=== PATIENT | female | born 1980 | race Caucasian/White ===

== ENCOUNTER 2016-07-07 10:32 | Emergency (ER) | payer MEDICAID ==
[~2016-07-07] VITALS: Ht 162.6 cm; Wt 75.0 kg
[~2016-07-07 10:32] MED LIST: BEN25 PO; CEPH-443 PO; HC1C30 TOP; NAPR-260 PO; PRED20TA PO; TRAM50TA2 PO
[2016-07-07 10:41] VITALS: Ht 162.6 cm; Wt 75.0 kg
[2016-07-07] MEDS ORDERED: FAMOTIDINE 20 MG TAB PO ONE (12:30)
[2016-07-07] MEDS ORDERED: METHYLPREDNISOLONE 125 MG INJ IM ONE (12:30)
[2016-07-07] MEDS ORDERED: DIPHENHYDRAMINE 25 MG CAP PO ONE (12:30)
[2016-07-07] MEDS ORDERED: MED4DP PO (12:40)
[2016-07-07] MEDS ORDERED: KENC1 TOP (12:41)
[2016-07-07] MEDS ORDERED: BEN25 PO (12:42)
--- NOTE | 2016-07-07 12:55 | ERD ---
ER Documentation Chief Complaint Date/Time DATE: 07/07/16 TIME: 12:50 Chief Complaint GENERALIZED BODY ITCHING,RASH.HX OF ECZEMA HPI This is a 36-year-old female presents to the ER with a rash that started yesterday. Rash is located on her neck and her arms. Patient has had this in the past and has been diagnosed with eczema. Patient states that she was cooking something in that this evening near her skin turned red and is very itchy. Patient tried taking Benadryl which helps minimally. Patient was here last month and was given a shot of Solu-Medrol which took her symptoms away. Patient denies any difficulty in breathing, any lip swelling, any tongue swelling, eye swelling, chest pain, shortness of breath. She has not taken any new medications or come in contact with any new foods. ROS 12 point review of systems was done, all negative except per HPI. Medications Home Meds Active Scripts Diphenhydramine Hcl* (Benadryl*) 25 Mg Cap, 25 MG PO Q6, #30 CAP Prov:ROSEY FISCHER 07/07/16 Triamcinolone Acetonide (Triamcinolone Acetonide) 0.1% - 15 Gm Cream.gm., 1 APPLIC TOP BID, #1 TUB Prov:ROSEY FISCHER 07/07/16 Methylprednisolone* (Medrol* DOSE PACK) 4 Mg/Dose-Pack Tab.ds.pk, 4 MG PO . DIRECTED for 6 Days, PACKET Prov:ROSEY FISCHER 07/07/16 Cephalexin* (Keflex*) 500 Mg Capsule, 500 MG PO QID for 10 Days, CAP Prov:ERIN PRICE PA-C 05/16/16 Diphenhydramine Hcl* (Benadryl*) 25 Mg Cap, 25 MG PO Q6, #30 CAP Prov:ERIN PRICE PA-C 05/16/16 Prednisone* (Prednisone*) 20 Mg Tab, 40 MG PO DAILY for 5 Days, TAB Prov:ERIN PRICE PA-C 05/16/16 Naproxen* (Naprosyn*) 500 Mg Tablet, 500 MG PO BID Y for PAIN AND/OR INFLAMMATION, #30 TAB Prov:DIPTI PINEDA PA-C 03/10/16 Tramadol HCl (Tramadol HCl) 50 Mg Tablet, 50 MG PO Q4 Y for PAIN, #20 TAB Prov:DIPTI PINEDAAnuj LUIS 03/10/16 Hydrocortisone* Topical (Hydrocortisone* Topical) 1%-28.35 Gm Cream..g., 1 APPLIC TOP Q6 Y for ITCHING, #1 TUB Prov:ROSEY FISCHER C 07/10/15 Diphenhydramine Hcl* (Benadryl*) 25 Mg Cap, 25 MG PO Q6, #30 CAP Prov:ROSEY FISCHER C 07/10/15 Allergies Allergies: Coded Allergies: Penicillins (Verified Allergy, Unknown, 04/26/14) PMhx/Soc History of Surgery: No Anesthesia Reaction: No Hx Neurological Disorder: No Hx Respiratory Disorders: No Hx Cardiac Disorders: No Hx Psychiatric Problems: No Hx Miscellaneous Medical Probl: No Hx Alcohol Use: No Hx Substance Use: No Hx Tobacco Use: No Physical Exam Vitals Vital Signs Date Time Temp Pulse Resp B/P Pulse Ox O2 Delivery O2 Flow Rate FiO2 07/07/16 10:41 98.6 75 18 124/73 98 Physical Exam GENERAL: The patient is well developed and appropriate for usual state of health , in no apparent distress. HEENT: Atraumatic. no lip swelling, tongue swelling, eye swelling. CHEST: Clear to auscultation bilaterally. There are no rales, wheezes or rhonchi. HEART: Regular rate and rhythm. No murmurs, clicks, rubs or gallops. EXTREMITIES:Full range of motion. Grossly neurovascularly intact. NEURO: Alert and oriented. SKIN: There is erythematous dry skin on the patient's anterior neck and chest and along bilateral arms. Some areas of excoriation on the arms. Results 24 hrs Current Medications Medications (Trade) Dose Ordered Sig/Leydi Route PRN Reason Start Time Stop Time Status Last Admin Dose Admin Methylprednisolone Sodium Succinate (Solu-Medrol) 125 mg ONCE ONCE IM 07/07/16 12:30 07/07/16 12:31 DC 07/07/16 12:27 Diphenhydramine HCl (Benadryl) 25 mg ONCE ONCE PO 07/07/16 12:30 07/07/16 12:31 DC 07/07/16 12:27 Famotidine (Pepcid) 20 mg ONCE ONCE PO 07/07/16 12:30 07/07/16 12:31 DC 07/07/16 12:27 Procedures/MDM Differential Diagnosis: dermatitis, allergic urticaria, viral exanthem, insect bite, fungal infection ,viral exanthem, hand foot mouth disease, , impetigo, cellulitis, abscess, martha krissy syndrome, meningocemia, necrotizing fasciitis, myositis. This is a 36-year-old female presents to the ER with a rash located on her neck and her arms. This appears to be eczema. Patient was given a shot of Solu-Medrol here in the ER without any complications. Patient does not appear to be having a severe allergic reaction. She does not have any angioedema. She is afebrile and well-appearing. Patient needs to follow-up with her primary care doctor within 1-2 days or return to ER sooner symptoms worsen. My medical decision making was shared with the patient she understands and agrees. Departure Diagnosis: Primary Impression: Atopic dermatitis Condition: Stable Patient Instructions: Atopic Dermatitis (Eczema) Additional Instructions: Llame al doctor MAANA y evette arnold RAMILA PARA DENTRO DE 1-2 NASCIMENTO.Dgale a la secretaria que nosotros le instruimos hacer esta ramila.Avise o llame si lepe condicin se empeora antes de la ramila. Regresa aqui si peor o no mejor. COMPRA EN LA FARMACIA AMLACTIN [address] LA QUE TE FUNCIONE MEJOR TODOS LOS NASCIMENTO DESPUES DEL KENJI, NO TE BANES CON AGUA MUY CALIENTE VE CON TU DOCTOR DE CABEZERA PIDE EL EXAMEN DE TIO- IMMUNOCAP TO FOOD AND ENVIRONMENT. ES UN EXAMEN PARA JASON SI ES ARNOLD ALERGIA. ROSEY FISCHER Jul 07, 2016 12:55
[2016-07-07 13:00] VITALS: BP 120/70; PULSE 85; RESP 18; TEMP 98.2
== END 2016-07-07 13:06 | disposition home or self-care (01) ==
LOC: FTE 10:32
DX: L20.9 Atopic dermatitis, unspecified (principal)
CPT/HCPCS: J2930; Z7610; 96372

== ENCOUNTER 2017-09-15 11:45 | Emergency (ER) | END 2017-09-15 14:52 | disposition home or self-care (01) ==

== ENCOUNTER 2018-01-06 14:26 | Emergency (ER) | END 2018-01-06 15:55 | disposition home or self-care (01) ==

== ENCOUNTER 2018-03-13 18:47 | Emergency (ER) | END 2018-03-13 21:18 | disposition home or self-care (01) ==

== ENCOUNTER 2018-05-26 16:48 | Inpatient (IN) | payer MEDICAID ==
[~2018-05-26] VITALS: Ht 160 cm; Wt 80.3 kg
[~2018-05-26 16:48] MED LIST changes: +ACET500C5 PO; +EPIN0.3P4 INJ; +FAMO-96 PO; +LORA10CA9 PO; +MED4DP PO; -NAPR-260 PO; +NAPR-985 PO; +ONDA4TAB14 PO; +TRIA15CR55 TOP; +TRIA15OI9 TOP
[2018-05-26] MEDS ORDERED: LIDOCAINE/MYLANTA 40 ML BTL PO STA (20:37)
[2018-05-26] MEDS ORDERED: KETOROLAC 15 MG INJ IV STA (20:37)
[2018-05-26] MEDS ORDERED: BELLADONNA/PHENOBARBITAL TAB PO STA (20:37)
[2018-05-26] MEDS ORDERED: SOD CHLORIDE 0.9% 1,000 ML IV STA (20:37)
[2018-05-26] MEDS ORDERED: FAMOTIDINE 20 MG TAB PO STA (20:37)
[2018-05-26] MEDS ORDERED: ONDANSETRON 4 MG INJ IV STA (20:37)
--- NOTE | 2018-05-26 20:42 | ERD ---
ER Documentation Chief Complaint Chief Complaint chest pressure x 2 hours HPI 38-year-old woman presents with right upper quadrant abdominal pain. She was triage is having chest pain although she points to the right upper quadrant and epigastrium when describing the pain. She has had the pain all day long and 2 episodes of clear nonbloody nonbilious emesis. She denies fevers or chills, no diarrhea, no headache or blurry vision, no dysuria ROS All systems reviewed and are negative except as per history of present illness. Medications Home Meds Active Scripts Famotidine* (Pepcid*) 20 Mg Tablet, 20 MG PO DAILY for 30 Days, TAB Prov:SHAHAB ONEIL 03/13/18 Diphenhydramine Hcl* (Benadryl*) 25 Mg Cap, 25 MG PO Q6 PRN for ITCHING/RASH, #30 TAB Prov:SHAHAB ONEIL 03/13/18 Loratadine (Loratadine) 10 Mg Capsule, 10 MG PO DAILY, #30 CAP Prov:TERRIDEWAYNESHAHAB 03/13/18 Discontinued Scripts Prednisone* (Prednisone*) 20 Mg Tab, 60 MG PO DAILY for 5 Days, TAB Prov:SHAHAB ONEIL 03/13/18 Epinephrine (Epipen 2-Luis) 0.3 Mg/0.3 Ml Pen.injctr, 1 EA INJ ONCE PRN for ALLERGIC REACTION, #1 EA Prov:SHAHAB ONEIL 03/13/18 Triamcinolone Acetonide (Triamcinolone Acetonide) 0.5% - 15 Gm Oint..gm., 1 APPLIC TOP BID for 30 Days, #4 TUB Prov:DELANO SUÁREZ MD 01/06/18 Prednisone* (Prednisone*) 20 Mg Tab, 40 MG PO DAILY for 4 Days, TAB Prov:DELANO SUÁREZ MD 01/06/18 Acetaminophen* (Tylophen*) 500 Mg Capsule, 2 CAP PO Q8H PRN for PAIN AND OR ELEVATED TEMP, #20 CAP Prov:JOHNNY CANCHOLA PA-C 09/15/17 Ondansetron (Ondansetron Odt) 4 Mg Tab.rapdis, 4 MG PO Q6H PRN for NAUSEA AND/OR VOMITING, #10 TAB Prov:JOHNNY CANCHOLA PA-C 09/15/17 Diphenhydramine Hcl* (Benadryl*) 25 Mg Cap, 25 MG PO Q6, #30 CAP Prov:AALIYAHROSEY Gastelum 07/07/16 Triamcinolone Acetonide (Triamcinolone Acetonide) 0.1% - 15 Gm Cream.gm., 1 APPLIC TOP BID, #1 TUB Prov:AALIYAHROSEY Gastelum 07/07/16 Methylprednisolone* (Medrol* DOSE PACK) 4 Mg/Dose-Pack Tab.ds.pk, 4 MG PO . DIRECTED for 6 Days, PACKET Prov:ROSEY FISCHER 07/07/16 Cephalexin* (Keflex*) 500 Mg Capsule, 500 MG PO QID for 10 Days, CAP Prov:ERIN PRICE PA-C 05/16/16 Diphenhydramine Hcl* (Benadryl*) 25 Mg Cap, 25 MG PO Q6, #30 CAP Prov:ERIN PRICE PA-C 05/16/16 Prednisone* (Prednisone*) 20 Mg Tab, 40 MG PO DAILY for 5 Days, TAB Prov:ERIN PRICE PA-C 05/16/16 Naproxen* (Naprosyn*) 500 Mg Tablet, 500 MG PO BID PRN for PAIN AND/OR INFLAMMATION, #30 TAB Prov:DIPTI PINEDA PA-C 03/10/16 Tramadol HCl (Tramadol HCl) 50 Mg Tablet, 50 MG PO Q4 PRN for PAIN, #20 TAB Prov:DIPTI PINEDA PA-C 03/10/16 Hydrocortisone* Topical (Hydrocortisone* Topical) 1%-28.35 Gm Cream..g., 1 APPLIC TOP Q6 PRN for ITCHING, #1 TUB Prov:ROSEY FISCHER 07/10/15 Diphenhydramine Hcl* (Benadryl*) 25 Mg Cap, 25 MG PO Q6, #30 CAP Prov:ROSEY FISCHER 07/10/15 Allergies Allergies: Coded Allergies: Penicillins (Verified Allergy, Unknown, 05/26/18) PMhx/Soc Eczema Medical and Surgical Hx: pt denies Medical Hx, pt denies Surgical Hx History of Surgery: No Anesthesia Reaction: No Hx Neurological Disorder: No Hx Respiratory Disorders: No Hx Cardiac Disorders: No Hx Psychiatric Problems: No Hx Miscellaneous Medical Probl: Yes (Eczema) Hx Alcohol Use: No Hx Substance Use: No Hx Tobacco Use: No Smoking Status: Never smoker FmHx Family History: diabetes Physical Exam Vitals Vital Signs Date Temp Pulse Resp B/P (MAP) Pulse Ox O2 O2 Flow FiO2 Time Delivery Rate 05/26/18 73 16 122/57 99 Room Air 22:00 (78) 05/26/18 71 19 126/73 100 Room Air 20:00 (90) 05/26/18 97.0 66 18 154/84 98 16:50 (107) Physical Exam GENERAL: Well-developed, well-nourished, mild discomfort, afebrile HEENT: Moist mucous membranes, pink conjunctiva, no cervical spine tenderness or step-off deformities, no goiter, no jaundice or icterus, extraocular movements intact without pain. No submandibular induration, and no pharyngeal erythema NEURO: Alert and oriented 3, cranial nerves II through XII intact bilaterally, pupils equal round reactive to light, no focal deficits or facial asymmetry, sensation intact distally Strength 5/5 in upper and lower extremities bilaterally CARDIAC: Regular rate and rhythm, no murmurs rubs or gallops LUNGS: Clear bilaterally no wheezing crackles or stridor ABDOMEN: Mild right upper quadrant tenderness to touch, no McBurney's point tenderness, no psoas sign, no rigidity or rebound SKIN: Warm and dry to touch, chronic appearing superficial eczematous changes and excoriations to the upper extremities, flaky skin, no pustules or ulcers EXTREMITIES: No clubbing cyanosis or edema, calves are bilaterally symmetrical, no Homans sign, no popliteal cord sign. Distal pulses equal and bilateral PSYCH: Normal affect without agitation or irritability Result Diagram: 05/26/18205805/26/182058 Results 24 hrs Laboratory Tests Test 05/26/18 20:52 05/26/18 20:59 POC Beta HCG, Qualitative NEGATIVE White Blood Count 16.7 10^3/ul Red Blood Count 4.64 10^6/ul Hemoglobin 12.7 g/dl Hematocrit 38.8 % Mean Corpuscular Volume 83.6 fl Mean Corpuscular Hemoglobin 27.4 pg Mean Corpuscular Hemoglobin Concent 32.7 g/dl Red Cell Distribution Width 13.0 % Platelet Count 302 10^3/UL Mean Platelet Volume 10.3 fl Immature Granulocytes % 0.400 % Neutrophils % 88.2 % Lymphocytes % 6.5 % Monocytes % 3.2 % Eosinophils % 1.3 % Basophils % 0.4 % Nucleated Red Blood Cells % 0.0 /100WBC Immature Granulocytes # 0.060 10^3/ul Neutrophils # 14.7 10^3/ul Lymphocytes # 1.1 10^3/ul Monocytes # 0.5 10^3/ul Eosinophils # 0.2 10^3/ul Basophils # 0.1 10^3/ul Nucleated Red Blood Cells # 0.0 10^3/ul Prothrombin Time 12.7 Sec Prothrombin Time Ratio 1.0 INR International Normalized Ratio 0.94 Activated Partial Thromboplast Time 28.8 Sec Sodium Level 139 mmol/L Potassium Level 3.9 mmol/L Chloride Level 99 mmol/L Carbon Dioxide Level 27 mmol/L Anion Gap 13 Blood Urea Nitrogen 13 mg/dl Creatinine 0.55 mg/dl Est Glomerular Filtrat Rate mL/min > 60 mL/min Glucose Level 134 mg/dl Calcium Level 9.6 mg/dl Total Bilirubin 0.3 mg/dl Direct Bilirubin 0.00 mg/dl Indirect Bilirubin 0.3 mg/dl Aspartate Amino Transf (AST/SGOT) 32 IU/L Alanine Aminotransferase (ALT/SGPT) 48 IU/L Alkaline Phosphatase 70 IU/L Troponin I < 0.012 ng/ml Total Protein 8.0 g/dl Albumin 4.8 g/dl Globulin 3.20 g/dl Albumin/Globulin Ratio 1.50 Lipase 63 U/L Current Medications Medications Dose Sig/Leydi Start Time Status Last (Trade) Ordered Route PRN Stop Time Admin Dose Reason Admin Sodium 1,000 ml @ Q1H STAT 05/26/18 DC 05/26/18 Chloride 1,000 mls/hr IV 20:37 20:53 05/26/18 21:36 Ondansetron 4 mg ONCE STAT 05/26/18 DC 05/26/18 HCl (Zofran IV 20:37 20:52 Inj) 05/26/18 20:39 Famotidine 20 mg ONCE STAT 05/26/18 DC 05/26/18 (Pepcid) PO 20:37 20:53 05/26/18 20:39 40 ml ONCE STAT 05/26/18 DC 05/26/18 Miscellaneous PO 20:37 20:54 Medication 05/26/18 (Gi Cocktail 20:39 (2)) Belladonna/ 2 tab ONCE STAT 05/26/18 DC 05/26/18 Phenobarbital PO 20:37 20:53 () 05/26/18 20:39 Ketorolac 15 mg ONCE STAT 05/26/18 DC 05/26/18 Tromethamine IV 20:37 20:53 (Toradol) 05/26/18 20:39 Piperacillin 100 ml @ ONCE ONCE 05/26/18 DC 05/26/18 Sod/ 200 mls/hr IVPB 22:00 22:20 Tazobactam 05/26/18 Sod 22:29 Procedures/MDM IV line was established patient was placed on monitoring analyst rhythm strip revealed a sinus rhythm at about 60 bpm with upright P and T waves. Patient was afebrile EKG performed, read by me revealed a normal sinus rhythm at 63 bpm, normal axis, narrow QRS complex, no concerning ST elevations or depressions noted I administered 1 L normal saline IV, Toradol 15 mg IV, Zofran 4 mg IV, GI cocktail 30 cc p.o., famotidine 20 mg p.o. Chest X-ray 1V Interpreted by me: Soft Tissue: No acute abnormalities Bones: No acute abnormalities Mediastinum/Cardiac Silhouette/Lungs: No acute abnormalities Ultrasound of the gallbladder was performed revealed gallbladder sludge and multiple gallstones. Please refer to radiologist dictation for full report CBC reveals a leukocytosis of 17, electrolytes are normal, liver function tests normal, troponin negative, test negative, urinalysis has been ordered results are pending I will follow-up. Patient has continued abdominal pain and a leukocytosis given her ultrasound findings I will admit her to [facility] for reevaluation. I spoke to the surgeon on-call. Patient's leukocytosis may be due to vomiting and her pain may be secondary to gastritis but she is at risk for acute cholecystitis and will be admitted for further medical management Departure Diagnosis: Primary Impression: Intractable abdominal pain Additional Impressions: Cholelithiasis Cholelithiasis location: gallbladder Cholecystitis presence: with cholecystitis Cholecystitis acuity: acute Biliary obstruction: without biliary obstruction Qualified Codes: K80.00 - Calculus of gallbladder with acute cholecystitis without obstruction Leukocytosis Leukocytosis type: lymphocytosis Qualified Codes: D72.820 - Lymphocytosis (symptomatic) Condition: Fair JATINDER SHARMA MD May 26, 2018 20:42
[2018-05-26] MEDS ORDERED: PIPER-TAZO 3.375 GM IV (PMX) 100 ML IVPB ONE (22:00)
[2018-05-26] MEDS ORDERED: HYDROmorphONE 0.5 MG/0.5 ML SYG IV STA (23:54)
[2018-05-27 01:14] VITALS: BP 108/60; PULSE 61; RESP 16
--- NOTE | 2018-05-27 01:15 | NUR ---
Patient arrived in 4W from the ER with diagnosis of intractable abdominal pain/cholelithiasis;oriented to room/unit, call burnette placed within reach and side rails raised for safety. Dr. Wallis notified thru Flexion message awaiting admission orders. Patient observed to have generalized rash/eczema with some healing tiny wound scabs more prominent on B/L hands. No pressure sores assessed in bony prominences such as sacrococcyx and B/L heels. Skin assessment done with night meteorologist in charge Sadia. Needs assisted, will continue to monitor for the reminder of this shift.
[2018-05-27 01:30] VITALS: Ht 160 cm; Wt 80.3 kg
[2018-05-27] MEDS ORDERED: ONDANSETRON 4 MG INJ IV PRN (02:30)
[2018-05-27] MEDS ORDERED: morphine 2 MG INJ IV PRN (02:30)
[2018-05-27] MEDS ORDERED: NACL 0.9% 3 ML SYG IV SCH (02:30)
[2018-05-27] MEDS: DEXTROSE 5%-0.45% NACL 1,000 ML IV SCH ×4 (02:46→21:50)
--- NOTE | 2018-05-27 02:55 | NUR ---
Patient complained of SOB chest pain described as " like somebody is sitting on top of my chest" pointing to her epigastrium. V/S stable when checked, Dr. Wallis notified with telephone orders made. O2 provided @ 2LPM via nasal cannula with O2 saturation ranging from 95-97% wastewater treatment supervisor also made aware as well. Will carry out interventions and watch patient closely/assist with needs.
[2018-05-27] MEDS: NITROGLYCERIN (SL) 0.4 MG TAB SL PRN ×2 (03:00→03:10)
[2018-05-27] MEDS ORDERED: HYDROmorphONE 1 MG/ML SYG IV ONE (05:30)
--- NOTE | 2018-05-27 06:15 | NUR ---
RN EOSS NOTES: Patient complained of recurring epigastric pain as well as RUQ abdominal pain radiating to back. Was able to sleep only for 1-2 hours post Nitrostat and Morphine IV administration this shift. Admitted intervention offered relief from chest pain but that "now my tummy and back is starting to hurt again." Requested if she can be given the same GI cocktail med given to her in the ER. Message sent to Dr. Wallis and physician with telephone order for Dilaudid 1.5mg IV x 1 dose now. No further orders. Will continue to monitor and assist with needs.
--- NOTE | 2018-05-27 06:56 | HP ---
Date/Time of Note Date/Time of Note DATE: 05/27/18 TIME: 06:53 Assessment/Plan Lines/Catheters IV [facility]ter Type (from [facility]): Saline Lock Urinary Cath still in place: No Assessment/Plan Assessment/Plan 1. Symptomatic cholelithiasis with possible cholecystitis -Keep n.p.o. with IV fluid -IV antibiotic -Pain management -HIDA scan -Awaiting surgical eval 2. Probable chest pain: Possibly related to #1, but need to rule out ACS -Troponin and EKG negative -will trend troponin and obtain a 2D echo 3. Leukocytosis: Reactive versus see #1 HPI/ROS Admit Date/Time Admit Date/Time May 26, 2018 at 22:22 Hx of Present Illness This is a 38-year-old female who presents the ER complaining of right upper quadrant pain and epigastric pain. Pain radiates to her back. Reported nausea and vomiting, mostly nonbloody nonbilious, but one episode with a small amount of blood. Also reported pain, just above the epigastric area, which was pressure-like. In the ER abdominal ultrasound shows multiple calcified gallstones. WBC almost 17,000. Patient afebrile. Liver chemistries and lipase WNL. PMH/Family/Social Past Medical History Coded Allergies: shrimp (Verified Allergy, Intermediate, eczema, 05/27/18) and seafood soap (Verified Allergy, Intermediate, eczema, 05/27/18) toxic cleaning materials Penicillins (Verified Allergy, Unknown, 05/26/18) Social History Smoking Status: Never smoker Exam/Review of Systems Vital Signs Vitals Vital Signs Date Temp Pulse Resp B/P (MAP) Pulse Ox O2 O2 Flow FiO2 Time Delivery Rate 05/27/18 98.1 61 16 108/60 98 01:14 (76) 05/27/18 Room Air 00:29 Intake and Output 05/26/18 05/26/18 05/27/18 1515:00 23:00 07:00 IntakeIntake Total 380 ml BalanceBalance 380 ml Medications Medications Current Medications Dextrose/Sodium Chloride 1,000 ml @ 120 mls/hr Q8H20M IV Last administered on 05/27/18at 02:46; Admin Dose 120 MLS/HR; Start 05/27/18 at 02:12 IV Flush (NS 3 ml) 3 ml PER PROTOCOL IV ; Start 05/27/18 at 02:30 Ondansetron HCl (Zofran Inj) 4 mg Q6H PRN IV NAUSEA AND/OR VOMITING; Start 05/27/18 at 02:30 Morphine Sulfate (morphine) 2 mg Q4H PRN IV SEVERE PAIN LEVEL 7-10 Last administered on 05/27/18at 03:52; Admin Dose 2 MG; Start 05/27/18 at 02:30 Famotidine (Pepcid Iv) 20 mg Q12 IV ; Start 05/27/18 at 09:00 Nitroglycerin (Nitroglycerin (Sl Tab) 0.4 Mg) 1 tab Q5M PRN SL ANGINA Last administered on 05/27/18at 03:10; Admin Dose 1 TAB; Start 05/27/18 at 02:55 Results Result Diagram: 05/27/1830905/27/18 0310 Results 24 hrs Laboratory Tests Test 05/26/18 20:52 05/26/18 20:59 05/27/18 03:10 POC Beta HCG, Qualitative NEGATIVE White Blood Count 16.7 H 13.6 H Red Blood Count 4.64 4.26 Hemoglobin 12.7 11.7 L Hematocrit 38.8 35.8 L Mean Corpuscular Volume 83.6 84.0 Mean Corpuscular Hemoglobin 27.4 L 27.5 L Mean Corpuscular 32.7 32.7 Hemoglobin Concent Red Cell Distribution Width 13.0 12.9 Platelet Count 302 281 Mean Platelet Volume 10.3 10.0 Immature Granulocytes % 0.400 0.300 Neutrophils % 88.2 H 77.0 Lymphocytes % 6.5 L 11.4 L Monocytes % 3.2 7.4 Eosinophils % 1.3 3.5 Basophils % 0.4 0.4 Nucleated Red Blood Cells % 0.0 0.0 Immature Granulocytes # 0.060 H 0.040 H Neutrophils # 14.7 H 10.5 H Lymphocytes # 1.1 1.6 Monocytes # 0.5 1.0 H Eosinophils # 0.2 0.5 Basophils # 0.1 0.1 Nucleated Red Blood Cells # 0.0 0.0 Prothrombin Time 12.7 Prothrombin Time Ratio 1.0 INR International 0.94 Normalized Ratio Activated Partial Thromboplast 28.8 Time Sodium Level 139 141 Potassium Level 3.9 3.7 Chloride Level 99 106 Carbon Dioxide Level 27 24 Anion Gap 13 11 Blood Urea Nitrogen 13 10 Creatinine 0.55 0.55 Est Glomerular Filtrat > 60 > 60 Rate mL/min Glucose Level 134 117 Calcium Level 9.6 8.4 Total Bilirubin 0.3 0.4 Direct Bilirubin 0.00 0.00 Indirect Bilirubin 0.3 0.4 Aspartate Amino 32 80 H Transf (AST/SGOT) Alanine 48 55 Aminotransferase (ALT/SGPT) Alkaline Phosphatase 70 73 Troponin I < 0.012 < 0.012 Total Protein 8.0 7.2 Albumin 4.8 3.8 # Globulin 3.20 3.40 H Albumin/Globulin Ratio 1.50 1.11 Lipase 63 Creatinine Kinase MB (Mass) 0.32 NICK TRONCOSO MD May 27, 2018 06:56
[2018-05-27 07:20] VITALS: BP 120/70; PULSE 69; RESP 18
[2018-05-27] MEDS: LEVOFLOXACIN 500MG/D5W (PMX) 100 ML IVPB SCH (08:30)
[2018-05-27] MEDS: FAMOTIDINE 20 MG INJ IV SCH ×2 (08:31→21:54)
[2018-05-27 14:29] VITALS: BP 102/58; PULSE 81; RESP 20
[2018-05-27] MEDS: ACETAMINOPHEN 325 MG TAB PO PRN (15:52)
--- NOTE | 2018-05-27 15:59 | RADRPT ---
Echocardiogram Report Patient Name: CHEYENNE CEBALLOS Gender: Female Date: 1980 Study Date: 27-May-2018 Child Care Supervisor: Brian Melgar [facility] Location: [id number] Ref. Physician: NICK TRONCOSO Quality: Adequate Procedures: Transthoracic echocardiogram with complete 2D, M-Mode, and doppler examination. Indications: Chest Pain. 2D/M Mode Doppler Measurement Value Normal Ranges Measurement Value Normal Ranges LVIDd 2D 4.3 3.5 - 5.6 cm AV Peak Sujit 1.7 m/sec LVIDs 2D 2.8 2.1 - 4.1 cm AV Peak PG 11.0 mmHg LVPWd 2D 1.0 0.6 - 1.1 cm LVOT Peak Sujit 1.1 m/sec IVSd 2D 1.3 0.6 - 1.1 cm LVOT Peak PG 5.0 mmHg AoR Diam 2D 2.7 2.0 - 3.7 cm MV E Peak Sujit 1.3 m/sec LA/Ao 2D 1 0 - 1 MV A Peak Sujit 0.8 m/sec LA Dimen 2D 3.4 2.3 - 4.0 cm MV E/A 1.5 MV Decel Time 208 msec Lat E` Sujit 0.1 m/sec Lateral E/E` 9.2 MV E/A 1.5 TR Peak Sujit 2.6 m/sec TR Peak PG 27.0 mmHg RVSP 30.0 mmHg RA Pressure 3.0 Findings Left Ventricle: Lower limits of normal systolic function. Normal left ventricular cavity size. Left ventricular wall thickness upper limits of normal. Ejection fraction is visually estimated at 50 - 55 %. Tissue Doppler/Mitral Doppler indices are within normal limits. These segments of the LV are hypokinetic inferolateral mid segment, inferolateral base, anterolateral mid segment and anterolateral base. Right Ventricle: Normal right ventricular size. Normal right ventricular systolic function. Left Atrium: The left atrium is normal in size. Right Atrium: The right atrium is normal in size. Mitral Valve: Normal appearance and function of the mitral valve with trace physiologic regurgitation. Aortic Valve: Normal appearance of the aortic valve. No significant aortic stenosis or insufficiency. Tricuspid Valve: Normal appearance of the tricuspid valve. Estimated peak PA systolic pressure 30 mmHg. There is trace tricuspid regurgitation. Pulmonic Valve: Normal pulmonic valve appearance. Pericardium: Normal pericardium with no significant pericardial effusion. Aorta: Normal aortic root. IVC: Normal size and normal respiratory collapse consistent with normal right atrial pressure. Conclusions The left ventricle is normal in size with lower limits of normal overall systolic function. Estimated left ventricular ejection fraction of 50-55%. The basal to mid inferolateral and lateral urban are hypokinetic. Electronically Signed By: Rafat Weiss 27-May-2018 15:58:53 -0800 Patient Name: CHEYENNE CEBALLOS Study Date: 27-May-2018 [id number]
--- NOTE | 2018-05-27 16:08 | CONS ---
Date/Time of Note Date/Time of Note DATE: 05/27/18 TIME: 15:56 Assessment/Plan Assessment/Plan Chief Complaint/Hosp Course 1. Abdominal pain with symptomatic cholelithiasis, and possible acute cholecystitis; HIDA noted_pending delay images -N.p.o. -Pain management -Possible OR tomorrow> pending HIDA findings and rule out ACS -OR 2. Leukocytosis: Improving -As above 3. Chest pressure: Rule out ACS -Cardiology consult 4. Obesity: BMI: 31 -diet and exercise optimization -encourage weight loss 5. Eczema: -Medical management Thank you. Patient seen and examined in collaboration with Dr. Onesimo Fleming. Consultation Date/Type/Reason Admit Date/Time May 26, 2018 at 22:22 Date of Consultation: May 27, 2018 Type of Consult Surgical Reason for Consultation Abdominal pain, concern for cholecystitis Requesting Provider: NICK TRONCOSO MD Hx of Present Illness Salome Acosta is a 38-year-old woman with complaints of right upper quadrant pain with radiation to the right upper back as well as midepigastric pain. Associated symptoms include nausea with vomiting, no bloody emesis, As well as some chest pressure. She denies fevers, chills, congested cough, shortness of breath, change in bowel or bladder habits, dysuria, seizure, change in skin or scleral changes. On further workup, her labs were noted to be significant for elevated WBC at 16.7. Gallbladder ultrasound shows calcified gallstones within the gallbladder with a small amount of sludge. HIDA scan was performed which showed nonvisualization of the gallbladder. General surgery was asked to evaluate. 12 point review of systems was performed and is negative except for stated in HPI. Past Medical History Eczema Medications Current Medications Dextrose/Sodium Chloride 1,000 ml @ 120 mls/hr Q8H20M IV Last administered on 05/27/18at 02:46; Admin Dose 120 MLS/HR; Start 05/27/18 at 02:12 IV Flush (NS 3 ml) 3 ml PER PROTOCOL IV ; Start 05/27/18 at 02:30 Ondansetron HCl (Zofran Inj) 4 mg Q6H PRN IV NAUSEA AND/OR VOMITING; Start 1 07/28/17 at 02:30 Morphine Sulfate (morphine) 2 mg Q4H PRN IV SEVERE PAIN LEVEL 7-10 Last administered on 05/27/18at 03:52; Admin Dose 2 MG; Start 05/27/18 at 02:30 Famotidine (Pepcid Iv) 20 mg Q12 IV Last administered on 05/27/18at 08:31; Admin Dose 20 MG; Start 05/27/18 at 09:00 Nitroglycerin (Nitroglycerin (Sl Tab) 0.4 Mg) 1 tab Q5M PRN SL ANGINA Last administered on 05/27/18at 03:10; Admin Dose 1 TAB; Start 05/27/18 at 02:55 Levofloxacin/ Dextrose 100 ml @ 100 mls/hr DAILY IVPB Last administered on 05/27/18 08:30; Admin Dose 100 MLS/HR; Start 05/27/18 at 09:00 Acetaminophen (Tylenol Tab) 650 mg Q6H PRN PO MILD PAIN(1-3)OR ELEVATED TEMP Last administered on 05/27/18at 15:52; Admin Dose 650 MG; Start 05/27/18 at 16:00 Allergies: Coded Allergies: shrimp (Verified Allergy, Intermediate, eczema, 05/27/18) and seafood soap (Verified Allergy, Intermediate, eczema, 05/27/18) toxic cleaning materials Penicillins (Verified Allergy, Unknown, 05/26/18) Past Surgical History Past Surgical Hx: no surgical history Family History Significant Family History: no pertinent family hx Social History Smoking Status: Never smoker Exam/Review of Systems Vital Signs Vitals Vital Signs Date Temp Pulse Resp B/P (MAP) Pulse Ox O2 O2 Flow FiO2 Time Delivery Rate 05/27/18 100.5 81 20 102/58 98 Room Air 14:29 (73) Intake and Output 05/26/18 05/26/18 05/27/18 1414:59 22:59 06:59 IntakeIntake Total 380 ml BalanceBalance 380 ml Exam Constitutional: alert, oriented, well developed Psych: nl mood/affect, anxiety Head: normocephalic, atraumatic Eyes: nl conjunctiva, EOMI, nl sclera ENMT: nl external ears & nose, nl lips & teeth, mucosa pink and moist Neck: supple, non-tender; No jvd Respiratory: normal air movement; No congested cough, No labored breathing Cardiovascular: regular rate and rhythm, nl pulses Gastrointestinal: soft, tender (Right upper quadrant; Kohler's positive by palpation); No distended Genitourinary - Female: nl external genitalia Musculoskeletal: nl extremities to inspection, nl gait and stance Extremities: normal pulses Neurological: nl mental status, nl speech, nl strength Skin: No rash or lesions ART CAMARGO NP May 27, 2018 16:07
[2018-05-27] MEDS: HYDROmorphONE 1 MG/ML SYG IV PRN (16:53)
--- NOTE | 2018-05-27 17:21 | PN ---
Date/Time of Note Date/Time of Note DATE: 05/27/18 TIME: 17:16 Assessment/Plan VTE Prophylaxis Risk score (from Nsg)>0 risk: 1 SCD applied (from Nsg): Yes SCD contraindicated: low risk/ambulating Pharmacological prophylaxis: LMWH Lines/Catheters IV Catheter Type (from Nrsg): Peripheral IV Urinary Cath still in place: No Assessment/Plan Hospital Course Assessment and plan 1. Abd pain/nausea vomiting/fever/abnormal ultrasound likely acute cholecystitis, stable, appreciate surgical eval. Npo./IVf/antibiotics. If stress test is unremarkable, may proceed forward to surgery w low lauren op risk. 2. Nonexertional chest pain, abn echo, stable rule out ACS. Appreciate cardio consult, Stress test tomorrow 3. Chronic eczema S: Ac onset abd pain w nausea vomiting fever. No recent travel ill contacts or ill foods. No tobacco use. Consider restaurant. Occasional beverage. Denies any chest wall injury. No recent travel. No previous similar pain in the past. Denies any inciting foods. No family history of coronary disease. Positive family history of cancer. Unable to tolerate diet this evening. Objective: Vital signs stable PE No pallor icterus adenopathy JVD Reg no murmur gallop Clear Bs diminished, mild right upper quadrant tenderness no r/r/g No edema or Homans. Positive eczema Exam/Review of Systems Vital Signs Vitals Vital Signs Date Temp Pulse Resp B/P (MAP) Pulse Ox O2 O2 Flow FiO2 Time Delivery Rate 05/27/18 100.5 81 20 102/58 98 Room Air 14:29 (73) Intake and Output 05/26/18 05/26/18 05/27/18 1515:00 23:00 07:00 IntakeIntake Total 380 ml BalanceBalance 380 ml BARRIE GRIFFIN MD May 27, 2018 17:21
--- NOTE | 2018-05-27 17:55 | CONS ---
Date/Time of Note Date/Time of Note DATE: 05/27/18 TIME: 17:50 Assessment/Plan Assessment/Plan Chief Complaint/Hosp Course Assessment: Atypical chest pain - appears gastrointestinal due to acute cholecystitis Wall motion abnormalities on echocardiogram - possibly artifactual Acute cholecystitis Recommendations: Surprising finding of wall motion abnormalities on transthoracic echocardiogram in patient without other cardiac risk factors. This may be artifactual, due to drop out on the ultrasound. -obtain Lexiscan SPECT Consultation Date/Type/Reason Admit Date/Time May 26, 2018 at 22:22 Type of Consult Cardiology Reason for Consultation chest pain Requesting Provider: BARRIE GRIFFIN MD Hx of Present Illness The patient is a 38 year-old female who presented with right upper quadrant and epigastric pain, nausea, and vomiting. She has been found to have probable acute cholecystitis based on ultrasound and HIDA scan results. She is planned for cholecystectomy. She received cardiac work up to rule out and acute coronary syndrome, and has been found to have a normal EKG and negative troponins x 3. A transthoracic echocardiogram showed LVEF 50-55%, but with basal to mid inferolateral and lateral hypokinesis. 14 point review of systems negative other than per HPI. Past Medical History Medical History: no pertinent history Medications Current Medications Dextrose/Sodium Chloride 1,000 ml @ 75 mls/hr [id number] IV Last administered on 05/27/18at 02:46; Admin Dose 120 MLS/HR; Start 05/27/18 at 02:12 IV Flush (NS 3 ml) 3 ml PER PROTOCOL IV ; Start 05/27/18 at 02:30 Famotidine (Pepcid Iv) 20 mg Q12 IV Last administered on 05/27/18at 08:31; Admin Dose 20 MG; Start 05/27/18 at 09:00 Nitroglycerin (Nitroglycerin (Sl Tab) 0.4 Mg) 1 tab Q5M PRN SL ANGINA Last administered on 05/27/18at 03:10; Admin Dose 1 TAB; Start 05/27/18 at 02:55 Levofloxacin/ Dextrose 100 ml @ 100 mls/hr DAILY IVPB Last administered on 05/27/18at 08:30; Admin Dose 100 MLS/HR; Start 05/27/18 at 09:00 Acetaminophen (Tylenol Tab) 650 mg Q6H PRN PO MILD PAIN(1-3)OR ELEVATED TEMP Last administered on 05/27/18at 15:52; Admin Dose 650 MG; Start 05/27/18 at 16:00 Metronidazole 100 ml @ 100 mls/hr Q8 IVPB ; Start 05/27/18 at 22:00 Hydromorphone HCl (Dilaudid) 0.4 mg Q4H PRN IV SEVERE PAIN LEVEL 7-10 Last administered on 05/27/18at 16:53; Admin Dose 0.4 MG; Start 05/27/18 at 17:00 Ondansetron HCl (Zofran Inj) 4 mg Q4 PRN IV NAUSEA AND/OR VOMITING; Start 05/27/18 at 17:30 Allergies: Coded Allergies: shrimp (Verified Allergy, Intermediate, eczema, 05/27/18) and seafood soap (Verified Allergy, Intermediate, eczema, 05/27/18) toxic cleaning materials Penicillins (Verified Allergy, Unknown, 05/26/18) Past Surgical History Past Surgical Hx: no surgical history Family History Significant Family History: no pertinent family hx Social History Smoking Status: Never smoker Exam/Review of Systems Vital Signs Vitals Vital Signs Date Temp Pulse Resp B/P (MAP) Pulse Ox O2 O2 Flow FiO2 Time Delivery Rate 05/27/18 100.5 81 20 102/58 98 Room Air 14:29 (73) Intake and Output 05/26/18 05/26/18 05/27/18 1515:00 23:00 07:00 IntakeIntake Total 380 ml BalanceBalance 380 ml Exam Constitutional: alert, well developed Psych: no complaints, nl mood/affect Head: normocephalic, atraumatic Eyes: nl conjunctiva, nl lids ENMT: nl external ears & nose, nl lips & teeth Neck: supple, non-tender; No jvd Respiratory: clear to auscultation, normal air movement Cardiovascular: regular rate and rhythm Gastrointestinal: soft, non-tender Musculoskeletal: nl extremities to inspection Extremities: No cyanosis, No clubbing, No edema Neurological: nl mental status, nl speech ABEBA CALIX MD May 27, 2018 17:55
--- NOTE | 2018-05-27 18:21 | NUR ---
EOSS: Patient alert and oriented X4, she was rounded on by Dr. Aranda and Mcia CYCLE ANALYST, per Mica patient will need to be cleared by cardiology prior to surgery. Dr. Aranda aware orders in place to have patient seen by Dr. Weiss and to be transferred to tele. No signs and symptoms of distress. Laly GANN, RN
[2018-05-27] MEDS: ONDANSETRON 4 MG INJ IV PRN (18:37)
--- NOTE | 2018-05-27 18:45 | NUR ---
TRANSFER TO TELE Patient transferred from [id number] to [id number]. nursing clerk placed. No signs of pain or respiratory distress. Vitals to be taken by RETAIL COVERAGE MERCHANDISER LEAD. Report received from Laly DAVID. NPO at midnight for procedures. Consent yet to be signed. Will endorse to third shift lieutenant.
[2018-05-27 19:00] VITALS: PULSE 87
[2018-05-27 19:32] VITALS: BP 100/55; PULSE 77; RESP 18
[2018-05-27 20:08] VITALS: PULSE 83
[2018-05-27] MEDS: metroNIDAZOLE 500 MG/NS (PMX) 100 ML IVPB SCH (21:57)
[2018-05-28] VITALS (12 sets, daily range): BP systolic 96–117; BP diastolic 54–65; PULSE 70–95; RESP 19–22
[2018-05-28] MEDS: ACETAMINOPHEN 325 MG TAB PO PRN ×4 (04:29→19:38)
[2018-05-28] MEDS: metroNIDAZOLE 500 MG/NS (PMX) 100 ML IVPB SCH ×3 (05:51→23:31)
--- NOTE | 2018-05-28 06:46 | NUR ---
Potassium 3.2. Dr. Wallis notified. Bimal will put in orders.
--- NOTE | 2018-05-28 06:54 | NUR ---
EOSS: Pt asleep in bed. VS stable. Pain managed w/tylenol, low grade fever managed. Denies SOB. Pt to have stress test, and laparoscopic cholecystectomy w/ possible liver biopsy, and poss. cholangiogram today-consent signed. Pt rounded on hourly, bed in locked and low position, bed alarm green, bed rail x2, call light within reach; pt reminded to call when in need of assistance. Will endorse to dayshift RN.
[2018-05-28] MEDS: FAMOTIDINE 20 MG INJ IV SCH ×2 (08:30→23:32)
[2018-05-28] MEDS: POTASSIUM CHLORIDE 50 ML IVPB SCH ×2 (08:31→16:50)
[2018-05-28] MEDS: LEVOFLOXACIN 500MG/D5W (PMX) 100 ML IVPB SCH (10:16)
--- NOTE | 2018-05-28 10:23 | PN ---
Date/Time of Note Date/Time of Note DATE: 05/28/18 TIME: : Assessment/Plan VTE Prophylaxis Risk score (from Nsg)>0 risk: 1 SCD applied (from Nsg): No SCD contraindicated: low risk/ambulating Pharmacological prophylaxis: NA/contraindicated Pharm contraindication: surgical contra Lines/Catheters IV Catheter Type (from Nrs): Peripheral IV Urinary Cath still in place: No Assessment/Plan Hospital Course Assessment and plan 1. Abd pain/vomiting/fever/abn ultrasound likely ac cholecystitis, stable, appreciate surgical eval. Npo./IVf/antibiotics. If stress test is unremarkable, may proceed forward to surgery w low lauren op risk. 2. Nonexertional chest pain, abn echo, stable r/o ACS. Stress test this morning 3. Chronic eczema S: 05/27 Ac onset abd pain w nausea vomiting fever. No recent travel ill contacts or ill foods. No tobacco use. Consider restaurant. Occasional beverage. Denies any chest wall injury. No recent travel. No previous similar pain in the past. Denies any inciting foods. No family history of coronary disease. Positive family history of cancer. Unable to tolerate diet this evening. 05/28: Less pain. Vomiting overnight. No fever dyspnea or chest pain. No arrhythmias. O: Vss sinus rhythm PE No pallor icterus JVD Reg no mrg Clear Bs dimin, mild ruq tenderness no r/r/g No edema or Homans. Positive eczema Exam/Review of Systems Vital Signs Vitals Vital Signs Date Temp Pulse Resp B/P (MAP) Pulse Ox O2 O2 Flow FiO2 Time Delivery Rate 05/28/18 83 08:00 05/28/18 98.5 20 100/58 96 Room Air 07:24 (72) 05/28/18 2.0 04:43 Intake and Output 05/27/18 05/27/18 05/28/18 1515:00 23:00 07:00 IntakeIntake Total 100 ml 1200 ml 950 ml BalanceBalance 100 ml 1200 ml 950 ml BARRIE GRIFFIN MD May 28, 2018 10:23
[2018-05-28] MEDS ORDERED: REGADENOSON 0.4 MG/5 ML SYG ONE (12:05)
--- NOTE | 2018-05-28 12:38 | CONS ---
Date/Time of Note Date/Time of Note DATE: 05/28/18 TIME: 12:37 Assessment/Plan Assessment/Plan Chief Complaint/Hosp Course Assessment: Atypical chest pain - appears gastrointestinal due to acute cholecystitis Wall motion abnormalities on echocardiogram - possibly artifactual Acute cholecystitis Recommendations: Surprising finding of wall motion abnormalities on transthoracic echocardiogram in patient without other cardiac risk factors. This may be artifactual, due to drop out on the ultrasound. -follow up Lexiscan SPECT results, no additional cardiac work up if negative Consultation Date/Type/Reason Admit Date/Time May 26, 2018 at 22:22 Initial Consult Date 05/27/18 Type of Consult Cardiology 24 HR Interval Summary Free Text/Dictation Lexiscan SPECT today. Detailed Summary Additional Comments 14 point review of systems without changes. Exam/Review of Systems Vital Signs Vitals Vital Signs Date Temp Pulse Resp B/P (MAP) Pulse Ox O2 O2 Flow FiO2 Time Delivery Rate 05/28/18 98.5 82 22 96/54 (68) 98 Nasal 11:18 Cannula 05/28/18 2.0 08:30 Intake and Output 05/27/18 05/27/18 05/28/18 1515:00 23:00 07:00 IntakeIntake Total 100 ml 1200 ml 950 ml BalanceBalance 100 ml 1200 ml 950 ml Exam Constitutional: alert, well developed Psych: no complaints, nl mood/affect Head: normocephalic, atraumatic Eyes: nl conjunctiva, nl lids ENMT: nl external ears & nose, nl lips & teeth Neck: supple, non-tender; No jvd Respiratory: clear to auscultation, normal air movement Cardiovascular: regular rate and rhythm Gastrointestinal: soft, non-tender Musculoskeletal: nl extremities to inspection Extremities: No cyanosis, No clubbing, No edema Neurological: nl mental status, nl speech ABEBA CALIX MD May 28, 2018 12:38
[2018-05-28] MEDS ORDERED: POTASSIUM CHLORIDE 50 ML ONE (14:48)
--- NOTE | 2018-05-28 16:35 | PN ---
Date/Time of Note Date/Time of Note DATE: 05/28/18 TIME: 16:33 Assessment/Plan Lines/Catheters IV Catheter Type (from [facility]): Peripheral IV Galvez in Place (from [facility]): No Assessment/Plan Chief Complaint/Hosp Course 1. Abdominal pain with symptomatic cholelithiasis, and acute cholecystitis with worsening leukocytosis. -N.p.o. -IV abx -IVF -Pain management -Due to the abnormality on stress test, will cancel surgery and instead have IR place cholecystostomy drain 2. Leukocytosis: Worsening -As above 3. Chest pressure with abnormal stress test -Cardiac optimization 4. Obesity: BMI: 31 -diet and exercise optimization -encourage weight loss 5. Eczema: -Medical management Thank you, Subjective 24 Hr Interval Summary Persistent right upper quadrant pain. Low-grade fever. No chest pain or shortness of breath. No cough. No seizure. No blood per mouth or rectum. No dysuria. No abnormal discharge. Bowel function. No headache, visual or neurologic changes. WBC worsened today. Stress test shows reversible abnorm ality inferior wall. Exam/Review of Systems Vital Signs Vitals Vital Signs Date Temp Pulse Resp B/P (MAP) Pulse Ox O2 O2 Flow FiO2 Time Delivery Rate 05/28/18 100.0 84 22 105/57 95 Room Air 15:43 (73) 05/28/18 2.0 08:30 Intake and Output 05/27/18 05/27/18 05/28/18 1414:59 22:59 06:59 IntakeIntake Total 100 ml 1200 ml 950 ml BalanceBalance 100 ml 1200 ml 950 ml Exam Free Text/Dictation Constitutional: alert, oriented, well developed Psych: nl mood/affect, anxiety Head: normocephalic, atraumatic Eyes: nl conjunctiva, EOMI, nl sclera ENMT: nl external ears & nose, nl lips & teeth, mucosa pink and moist Neck: supple, non-tender; No jvd Respiratory: normal air movement; No congested cough, No labored breathing Cardiovascular: regular rate and rhythm, nl pulses Gastrointestinal: soft, tender (Right upper quadrant; Kohler's positive by palpation); No distended Genitourinary - Female: nl external genitalia Musculoskeletal: nl extremities to inspection, nl gait and stance Extremities: normal pulses Neurological: nl mental status, nl speech, nl strength Skin: No rash or lesions Results Result Diagram: 05/28/18 0508 05/28/18 0508 ELIZABETH PRO MD May 28, 2018 16:35
--- NOTE | 2018-05-28 19:30 | NUR ---
EOSS A&Ox4. Stress test done. Laporascopic surgery cancelled by Dr. Fleming. CT guided aspiration drainage of abcess scheduled for Thursday05/31/18 0930. To be NPO for procedure. Diet changed to Clear liquid diet. NPO at midnight. K 3.2. 20 mEq KCL given. 1 bag 10 mEq potassium left to be given. Peripheral IV infiltrated. peripheral iv removed, extremity elevated and warm compress places. Charge nurse RN Aftab informed. Bed brakes on, side rails up, call light within reach. All needs attended to. Will endorse to night custodian.
--- NOTE | 2018-05-28 20:00 | NUR ---
RECVD REPORT; ASSUMED CARE. PT IN BED WATCHING TV. RESP UNLABORED. PT HAS POOR VENOUS ACCESS; BIOMEDICAL ELECTRONICS TECHNICIAN TO COME TO INSERT IV. NEEDS ATTENDED.
--- NOTE | 2018-05-28 21:16 | NUR ---
1999 TEMP 102. COOLING MEASURES DONE. TYLENOL PRN WAS GIVEN @ 193. PAGED DR[address] TRONCOSO. [address] TRONCOSO WITH ORDER. CONTINUE WITH COOLING MEASURES. Addendum: 05/28/18 at 2321 by NOELLE JOHNSON RN ELECTRICAL AND INSTRUMENT MECHANIC ATTEMPTED TO INSERT SALINE LOCK BUT NOT SUCCESSFUL. CALLED ER FOR MIDLINE INSERTION; SPOKE WITH SPEECH INSTRUCTOR. SHE WILL TRY TO SEND SOMEONE TO INSERT A MIDLINE LATER.
[2018-05-28] MEDS ORDERED: ACETAMINOPHEN 650 MG SUPP PR PRN (21:30)
--- NOTE | 2018-05-28 21:33 | NUR ---
PT STABLE. REPORT GIVEN TO FRANKIE CASTILLO.
--- NOTE | 2018-05-28 22:03 | NUR ---
NURSES NOTE: RECEIVED REPORT FROM FRANKIE MANJARREZ
[2018-05-28] MEDS: DEXTROSE 5%-0.45% NACL 1,000 ML IV SCH (23:26)
--- NOTE | 2018-05-28 23:47 | NUR ---
NURSES NOTE: CALLED ER, SPOKE WITH CREDIT REPORTING CLERK FOR POSSIBLE PLACEMENT OF MIDLINE ON PATIENT, SHE STATED THAT TEHY ARE CURRENTLY NOT ABLE TO PLACE MIDLINE.
[2018-05-29] VITALS (10 sets, daily range): BP systolic 100–112; BP diastolic 57–69; PULSE 72–102; RESP 17–20
[2018-05-29] MEDS: DEXTROSE 5%-0.45% NACL 1,000 ML IV SCH (02:31)
[2018-05-29] MEDS: POTASSIUM CHLORIDE 50 ML IVPB SCH (05:05)
--- NOTE | 2018-05-29 05:12 | NUR ---
NURSES NOTE: PATIENT HAS C/O PAIN WITH INFUSING OF POTASSIUM CHLORIDE. INFORMED DR. TRONCOSO AND WANTS TO DISCONTINUE LAST BAG ON KCL 10MEQ AND AWAIT RESULTS OF AM LABS. WILL CONTINUE TO MONITOR PATIENT.
[2018-05-29] MEDS: metroNIDAZOLE 500 MG/NS (PMX) 100 ML IVPB SCH ×3 (05:48→21:50)
[2018-05-29] MEDS: ACETAMINOPHEN 325 MG TAB PO PRN ×3 (05:53→17:58)
--- NOTE | 2018-05-29 06:46 | NUR ---
EOSS: PATIENT IS A/O X4, FEVER AT THE END OF SHIFT, SR ON THE MONITOR, NO C/O CP OR SOB, NO ACUTE EVENTS OVER NIGHT. PATIENT IS CLEAN AND DRY, HAS CALL LIGHT IN REACH, REFUSING BED ALARM, BED IN LOWEST POSITION, NON-SLIP SOCKS ON, AND ROOM IS CLUTTER FREE. CONTINUE POC, WILL ENDORSE TO DAY SHIFT RN.
[2018-05-29] MEDS ORDERED: POTASSIUM CHLORIDE 100 ML IVPB SCH (08:00)
[2018-05-29] MEDS: LEVOFLOXACIN 500MG/D5W (PMX) 100 ML IVPB SCH (08:47)
[2018-05-29] MEDS: FAMOTIDINE 20 MG INJ IV SCH (08:47)
[2018-05-29] MEDS ORDERED: POTASSIUM CHLORIDE (SR) 20 MEQ TAB PO STA (10:25)
[2018-05-29] MEDS: D5-NS + KCL 20 MEQ 1,000 ML IV SCH ×2 (12:04→23:50)
--- NOTE | 2018-05-29 14:47 | PN ---
Date/Time of Note Date/Time of Note DATE: 05/29/18 TIME: 14:46 Assessment/Plan Lines/Catheters IV Catheter Type (from [facility]): Peripheral IV Galvez in Place (from [facility]): No Assessment/Plan Chief Complaint/Hosp Course 1. Abdominal pain with symptomatic cholelithiasis, and acute cholecystitis with significant leukocytosis. -N.p.o. -IV abx -IVF -Pain management -Due to the abnormality on stress test, surgery cancelled. IR cholecystostomy drain pending. 2. Leukocytosis -As above 3. Chest pressure with abnormal stress test -Cardiac optimization 4. Obesity: BMI: 31 -diet and exercise optimization -encourage weight loss 5. Eczema: -Medical management Thank you, Subjective 24 Hr Interval Summary Persistent right upper quadrant pain. Low-grade fever. No chest pain or shortness of breath. No cough. No seizure. No blood per mouth or rectum. No dysuria. No abnormal discharge. Bowel function. No headache, visual or neurologic changes. WBC improved. Cholecystostomy drain still pending. Exam/Review of Systems Vital Signs Vitals Vital Signs Date Temp Pulse Resp B/P (MAP) Pulse Ox O2 O2 Flow FiO2 Time Delivery Rate 05/30/18 88 08:00 05/30/18 99.3 18 98/60 (73) 98 07:55 05/29/18 Room Air 20:45 05/28/18 2.0 08:30 Intake and Output 05/29/18 05/29/18 05/30/18 1515:00 23:00 07:00 IntakeIntake Total 100 ml 200 ml 820 ml OutputOutput Total 50 ml 175 ml BalanceBalance 100 ml 150 ml 645 ml Exam Free Text/Dictation Constitutional: alert, oriented, well developed Psych: nl mood/affect, anxiety Head: normocephalic, atraumatic Eyes: nl conjunctiva, EOMI, nl sclera ENMT: nl external ears & nose, nl lips & teeth, mucosa pink and moist Neck: supple, non-tender; No jvd Respiratory: normal air movement; No congested cough, No labored breathing Cardiovascular: regular rate and rhythm, nl pulses Gastrointestinal: soft, tender (Right upper quadrant; Kohler's positive by p alpation); No distended Genitourinary - Female: nl external genitalia Musculoskeletal: nl extremities to inspection, nl gait and stance Extremities: normal pulses Neurological: nl mental status, nl speech, nl strength Skin: No rash or lesions Results Result Diagram: 05/30/18 0511 05/30/18 0511 ELIZABETH PRO MD May 29, 2018 14:47
--- NOTE | 2018-05-29 15:23 | PN ---
Date/Time of Note Date/Time of Note DATE: 05/29/18 TIME: 15:20 Assessment/Plan VTE Prophylaxis Risk score (from Nsg)>0 risk: 2 SCD applied (from Ns): No SCD contraindicated: low risk/ambulating Pharmacological prophylaxis: LMWH Lines/Catheters IV Catheter Type (from Nrsg): Peripheral IV Urinary Cath still in place: No Assessment/Plan Hospital Course Assessment and plan 1. Ac cholecystitis, stable, appreciate surgical eval. for cholecystostomy tube today. Maybe lap ashleigh down the line. 2. Nonexertional cp, abn echo/ Stress. Medical mngmnt; start asa once tolerating diet. Maybe scheduled for outpt cardiac cath in 1-2 weeks/months improving from infection. 3. Chronic eczema S: 05/27 Ac onset abd pain w nausea vomiting fever. No recent travel ill contacts or ill foods. No tobacco use. Consider restaurant. Occasional beverage. Denies any chest wall injury. No recent travel. No previous similar pain in the past. Denies any inciting foods. No family history of coronary disease. Positive family history of cancer. Unable to tolerate diet this evening. 05/28: Less pain. Vomiting overnight. No fever dyspnea or chest pain. No arrhythmias. 05/29: Less pain. One episode of vomiting. No hematemesis. No dyspnea chest pain fever. Positive flatus. Awake alert oriented. She has no questions for me. O: Vss sinus rhythm PE No pallor icterus JVD Reg no mrg Clear Bs dimin, min ruq tenderness no r/r/g or flank ecchymosis No edema or Homans. Positive eczema Exam/Review of Systems Vital Signs Vitals Vital Signs Date Temp Pulse Resp B/P (MAP) Pulse Ox O2 O2 Flow FiO2 Time Delivery Rate 05/29/18 90 12:00 05/29/18 99.4 20 102/65 100 11:13 (77) 05/29/18 Room Air 03:59 05/28/18 2.0 08:30 Intake and Output 05/28/18 05/28/18 05/29/18 1414:59 22:59 06:59 IntakeIntake Total 600 ml 1150 ml BalanceBalance 600 ml 1150 ml BARRIE GRIFFIN MD May 29, 2018 15:23
[2018-05-29] MEDS ORDERED: MIDAZOLAM 1 MG/ML 2 ML INJ ONE (15:43)
[2018-05-29] MEDS ORDERED: LIDOCAINE 1% (MPF) 5 ML VIAL ONE (15:43)
[2018-05-29] MEDS ORDERED: FENTAnyl 50 MCG/ML VIAL ONE (15:44)
--- NOTE | 2018-05-29 18:39 | CONS ---
Date/Time of Note Date/Time of Note DATE: 05/29/18 TIME: 18:35 Assessment/Plan Assessment/Plan Chief Complaint/Hosp Course Assessment: Probable coronary artery disease - small reversible perfusion inferior wall defect on Lexiscan SPECT, corresponding to the inferolateral wall motion abnormalities on echocardiogram, likely represents underlying right coronary artery disease; clinically stable Atypical chest pain - appears gastrointestinal due to acute cholecystitis Acute cholecystitis - status post cholecystostomy tube placement 05/29/2018 Recommendations: -aspirin 81mg daily -patient will eventually need cardiac catheterization as outpatient, once acute biliary issues have resolved Consultation Date/Type/Reason Admit Date/Time May 26, 2018 at 22:22 Initial Consult Date 05/27/18 Type of Consult Cardiology 24 HR Interval Summary Free Text/Dictation Status post cholecystostomy tube placement. Doing well post-procedure. Denies chest pain or shortness of breath. Detailed Summary Additional Comments 14 point review of systems without changes. Exam/Review of Systems Vital Signs Vitals Vital Signs Date Temp Pulse Resp B/P (MAP) Pulse Ox O2 O2 Flow FiO2 Time Delivery Rate 05/29/18 102.0 17:58 05/29/18 90 12:00 05/29/18 20 102/65 100 11:13 (77) 05/29/18 Room Air 03:59 05/28/18 2.0 08:30 Intake and Output 05/28/18 05/28/18 05/29/18 1515:00 23:00 07:00 IntakeIntake Total 600 ml 1150 ml BalanceBalance 600 ml 1150 ml Exam Constitutional: alert, well developed Psych: no complaints, nl mood/affect Head: normocephalic, atraumatic Eyes: nl conjunctiva, nl lids ENMT: nl external ears & nose, nl lips & teeth Neck: supple, non-tender; No jvd Respiratory: clear to auscultation, normal air movement Cardiovascular: regular rate and rhythm Gastrointestinal: soft, non-tender Musculoskeletal: nl extremities to inspection Extremities: No cyanosis, No clubbing, No edema Neurological: nl mental status, nl speech ABEBA CALIX MD May 29, 2018 18:39
--- NOTE | 2018-05-29 18:55 | NUR ---
EOSS PT HAD A CHOLECYSTOSTOMY DRAIN PLACED TODAY, NOTED SEROUSANGEOUS COLOR. SHE IS ON A CLEAR LIQUID DIET, REFUSE TO EAT DINNER. WHEN PT ARRIVED ON THE FLOOR FROM RADIOLOGY, PER RN PT HAS A TEMPERATURE OF 102. TYLENOL PO GIVEN AND COOLING MEASURES DONE, ON IV ATB ALREADY. PT IS ABLE TO REPOSITION SELF, SKIN INTACT, ALL NEEDS WERE MET.
[2018-05-30] VITALS (15 sets, daily range): BP systolic 90–125; BP diastolic 52–69; PULSE 84–156; RESP 18–20
--- NOTE | 2018-05-30 | NUR ---
IV INFILTRATED PT IS A HARD STICK CALLED ER TO PL[facility] PT UNABLE TO GO DOWN DUE TEMP 103 SOON CAR MOVER AVAILABLE ER CHARGE WILL SEND SOMEBODY UP. WHITE HAT HACKER MADE AWARE.
[2018-05-30] MEDS ORDERED: IBUPROFEN 600 MG TAB PO ONE (00:30)
--- NOTE | 2018-05-30 02:00 | NUR ---
COOLING BLANKET MACHINE NOT AVAILABLE. BEAR HUGGER PLACED. WILL CONTINUE TO MONITOR.
[2018-05-30] MEDS: HYDROmorphONE 1 MG/ML SYG IV PRN (02:28)
--- NOTE | 2018-05-30 05:09 | NUR ---
EOSS; PT RESTING COMFORTABLY WITH ON AND OFF FEVER DR. TRONCOSO NOTIFIED BLOOD CULTURE X2 ,URINE CULTURE DONE AND ALSO LACTIC ACID. TEMP NOW IS 99.5 . JAEMS ROACH NOT WORKING COOK FRY NOTIFIED. WILL CONTINUE TO MONITOR PT.
[2018-05-30] MEDS: metroNIDAZOLE 500 MG/NS (PMX) 100 ML IVPB SCH ×3 (05:17→22:34)
[2018-05-30] MEDS: ASPIRIN (EC) 81 MG TAB PO SCH (08:37)
[2018-05-30] MEDS: FAMOTIDINE 20 MG INJ IV SCH (08:37)
[2018-05-30] MEDS: LEVOFLOXACIN 500MG/D5W (PMX) 100 ML IVPB SCH (08:38)
--- NOTE | 2018-05-30 11:07 | PN ---
Date/Time of Note Date/Time of Note DATE: 05/30/18 TIME: 11:05 Assessment/Plan Lines/Catheters IV Catheter Type (from Nrs): Peripheral IV Galvez in Place (from Nrs): No Assessment/Plan Chief Complaint/Hosp Course 1. Abdominal pain with symptomatic cholelithiasis, and acute cholecystitis with significant leukocytosis. s/p IR cholecystostomy drain 05/29 -Drain -IV abx -IVF -Pain management 2. Leukocytosis, improving -As above 3. Chest pressure with abnormal stress test -Cardiac optimization 4. Obesity: BMI: 31 -diet and exercise optimization -encourage weight loss 5. Eczema: -Medical management Thank you, Subjective 24 Hr Interval Summary s/p CT guided cholecystostomy drain 05/29. Pain. Fevers overnight but improved today. WBC improving. No chest pain or shortness of breath. No cough. No seizure. No blood per mouth or rectum. No dysuria. No abnormal discharge. Bowel function. No headache, visual or neurologic changes. Exam/Review of Systems Vital Signs Vitals Vital Signs Date Temp Pulse Resp B/P (MAP) Pulse Ox O2 O2 Flow FiO2 Time Delivery Rate 05/30/18 88 08:00 05/30/18 99.3 18 98/60 (73) 98 07:55 05/29/18 Room Air 20:45 05/28/18 2.0 08:30 Intake and Output 05/29/18 05/29/18 05/30/18 1515:00 23:00 07:00 IntakeIntake Total 100 ml 200 ml 820 ml OutputOutput Total 50 ml 175 ml BalanceBalance 100 ml 150 ml 645 ml Exam Free Text/Dictation Constitutional: alert, oriented, well developed Psych: nl mood/affect, anxiety Head: normocephalic, atraumatic Eyes: nl conjunctiva, EOMI, nl sclera ENMT: nl external ears & nose, nl lips & teeth, mucosa pink and moist Neck: supple, non-tender; No jvd Respiratory: normal air movement; No congested cough, No labored breathing Cardiovascular: regular rate and rhythm, nl pulses Gastrointestinal: soft, ruq tenderness. Drain. No distended Genitourinary - Female: nl external genitalia Musculoskeletal: nl extremities to inspection, nl gait and stance Extremities: normal pulses Neurological: nl mental status, nl speech, nl strength Skin: No rash or lesions Results Result Diagram: 05/30/18 0511 05/30/18 0511 ELIZABETH PRO MD May 30, 2018 11:07
[2018-05-30] MEDS: ACETAMINOPHEN 325 MG TAB PO PRN ×2 (12:41→18:46)
[2018-05-30] MEDS: D5-NS + KCL 20 MEQ 1,000 ML IV SCH (12:41)
--- NOTE | 2018-05-30 16:49 | PN ---
Date/Time of Note Date/Time of Note DATE: 05/30/18 TIME: 16:46 Assessment/Plan VTE Prophylaxis Risk score (from Nsg)>0 risk: 1 SCD applied (from Nsg): No SCD contraindicated: low risk/ambulating Pharmacological prophylaxis: LMWH Lines/Catheters IV Catheter Type (from Nrsg): Peripheral IV Urinary Cath still in place: No Assessment/Plan Hospital Course Assessment and plan 1. Ac cholecystitis, stable, sp cholecystostomy tube. Maybe lap ashleigh down the line. 2. Nonexertional cp, abn echo/ Stress. Medical mngmnt; start asa once tolerating diet. Maybe scheduled for outpt cardiac cath in 1-2 weeks, once improving from infection. 3. Chronic eczema S: 05/27 Ac onset abd pain w nausea vomiting fever. No recent travel ill contacts or ill foods. No tobacco use. Consider restaurant. Occasional beverage. Denies any chest wall injury. No recent travel. No previous similar pain in the past. Denies any inciting foods. No family history of coronary disease. Positive family history of cancer. Unable to tolerate diet this evening. 05/28: Less pain. Vomiting overnight. No fever dyspnea or chest pain. No arrhythmias. 05/29: Less pain. One episode of vomiting. No hematemesis. No dyspnea chest pain fever. Positive flatus. Awake alert oriented. She has no questions for me. 05/30: Fever overnight. Events noted/cholecystostomy tube placed yesterday afternoon. Pus noted. No chills Reiger nausea vomiting today. Less pain, Tolerating diet. Potentially home in 1-2 days once final cultures are out. May visit cardiology in 1 week for cardiac cath. Then lap ashleigh down the line. Patient aware. O: Vss sinus rhythm PE No pallor icterus JVD Reg no mrg Clear Bs dimin, min ruq tenderness no r/r/g or flank ecchymosis; drain c/d/i No edema or Homans. eczema Exam/Review of Systems Vital Signs Vitals Vital Signs Date Temp Pulse Resp B/P (MAP) Pulse Ox O2 O2 Flow FiO2 Time Delivery Rate 05/30/18 156 16:17 05/30/18 98.0 18 101/64 98 15:44 (76) 05/29/18 Room Air 20:45 05/28/18 2.0 08:30 Intake and Output 05/29/18 05/29/18 05/30/18 1515:00 23:00 07:00 IntakeIntake Total 100 ml 200 ml 820 ml OutputOutput Total 50 ml 175 ml BalanceBalance 100 ml 150 ml 645 ml BARRIE GRIFFIN MD May 30, 2018 16:49
[2018-05-30] MEDS ORDERED: HYDROCODONE/APAP (10/325) TAB PO PRN (17:00)
--- NOTE | 2018-05-30 17:53 | CONS ---
Date/Time of Note Date/Time of Note DATE: 05/30/18 TIME: 17:52 Assessment/Plan Assessment/Plan Chief Complaint/Hosp Course Assessment: Probable coronary artery disease - small reversible perfusion inferior wall defect on Lexiscan SPECT, corresponding to the inferolateral wall motion abnormalities on echocardiogram, likely represents underlying right coronary artery disease; clinically stable Atypical chest pain - appears gastrointestinal due to acute cholecystitis Acute cholecystitis - status post cholecystostomy tube placement 05/29/2018 Recommendations: -continue aspirin 81mg daily -patient will eventually need cardiac catheterization as outpatient, once acute biliary issues have resolved Consultation Date/Type/Reason Admit Date/Time May 26, 2018 at 22:22 Initial Consult Date 05/27/18 Type of Consult Cardiology 24 HR Interval Summary Free Text/Dictation No acute events. No chest pain. WBC downtrending. Detailed Summary Additional Comments 14 point review of systems without changes. Exam/Review of Systems Vital Signs Vitals Vital Signs Date Temp Pulse Resp B/P (MAP) Pulse Ox O2 O2 Flow FiO2 Time Delivery Rate 05/30/18 156 16:17 05/30/18 98.0 18 101/64 98 15:44 (76) 05/29/18 Room Air 20:45 05/28/18 2.0 08:30 Intake and Output 05/29/18 05/29/18 05/30/18 1515:00 23:00 07:00 IntakeIntake Total 100 ml 200 ml 820 ml OutputOutput Total 50 ml 175 ml BalanceBalance 100 ml 150 ml 645 ml Exam Constitutional: alert, well developed Psych: no complaints, nl mood/affect Head: normocephalic, atraumatic Eyes: nl conjunctiva, nl lids ENMT: nl external ears & nose, nl lips & teeth Neck: supple, non-tender; No jvd Respiratory: clear to auscultation, normal air movement Cardiovascular: regular rate and rhythm Gastrointestinal: soft, non-tender Musculoskeletal: nl extremities to inspection Extremities: No cyanosis, No clubbing, No edema Neurological: nl mental status, nl speech ABEBA CALIX MD May 30, 2018 17:53
--- NOTE | 2018-05-30 18:15 | NUR ---
EOSS PT'S TEMPERATURE REMAINS UNSTABLE THROUGHOUT THE DAY. PT HAD 2 EPISODES OF VOMITING AND IS ON A CLEAR LIQUID DIET, HOWEVER MAY ADVANCE TO SOFT, CARDIAC. S/P CHOLECYSTECTOMY DRAIN WITH 200 CC OUTPUT. PENDING BLOOD CULTURE RESULTS.
[2018-05-30] MEDS: ONDANSETRON 4 MG INJ IV PRN (19:50)
[2018-05-31] VITALS (12 sets, daily range): BP systolic 101–120; BP diastolic 57–71; PULSE 74–107; RESP 18
[2018-05-31] MEDS: ACETAMINOPHEN 325 MG TAB PO PRN ×4 (00:20→23:30)
[2018-05-31] MEDS: metroNIDAZOLE 500 MG/NS (PMX) 100 ML IVPB SCH ×3 (05:35→22:10)
--- NOTE | 2018-05-31 06:12 | NUR ---
EOSS; PT STILL WITH ON AND OFF FEVER DR. TRONCOSO MADE AWARE AND SAID TO CONTINUE TO MONITOR VITAL SIGNS .EDUCATED PT REGARDING IMPORTANCE OF INCREASING ACTIVITY TO PREVENT COMPLICATION. ACCORDION DRAIN INTACT WITH BROWNISH COLORED DRAINAGE. WILL CONTINUE PLAN OF CARE.
[2018-05-31] MEDS: D5-NS + KCL 20 MEQ 1,000 ML IV SCH (07:32)
[2018-05-31] MEDS: LEVOFLOXACIN 500MG/D5W (PMX) 100 ML IVPB SCH (08:11)
[2018-05-31] MEDS: FAMOTIDINE 20 MG INJ IV SCH (08:11)
[2018-05-31] MEDS: ASPIRIN (EC) 81 MG TAB PO SCH (08:11)
[2018-05-31] MEDS: ENOXAPARIN 40 MG/0.4 ML SYG SC SCH (08:19)
--- NOTE | 2018-05-31 12:58 | PN ---
Date/Time of Note Date/Time of Note DATE: 05/31/18 TIME: 12:56 Assessment/Plan Lines/Catheters IV Catheter Type (from Nrs): Peripheral IV Galvez in Place (from Nrs): No Assessment/Plan Chief Complaint/Hosp Course 1. Abdominal pain with symptomatic cholelithiasis, and acute cholecystitis with significant leukocytosis. s/p IR cholecystostomy drain 05/29 -Continue drain -Continue IV abx -IVF -Pain management 2. Leukocytosis, improving -As above 3. Chest pressure with abnormal stress test -Cardiac optimization 4. Obesity: BMI: 31 -diet and exercise optimization -encourage weight loss 5. Eczema: -Medical management Thank you. Patient seen and examined in collaboration with Dr. Onesimo Fleming. Subjective 24 Hr Interval Summary Continues to have some right upper quadrant tenderness. Still with low-grade temperature. WBC improving. No chills, sob, congested cough, cp, palpitations, joseph, dizziness, nausea, vomiting, diarrhea, dysuria. Exam/Review of Systems Vital Signs Vitals Vital Signs Date Temp Pulse Resp B/P (MAP) Pulse Ox O2 O2 Flow FiO2 Time Delivery Rate 05/31/18 100.8 89 18 105/60 98 12:14 (75) 05/29/18 Room Air 20:45 05/28/18 2.0 08:30 Intake and Output 05/30/18 05/30/18 05/31/18 1515:00 23:00 07:00 IntakeIntake Total 700 ml 820 ml OutputOutput Total 310 ml BalanceBalance 700 ml 510 ml Exam Free Text/Dictation Constitutional: alert, oriented, well developed Psych: nl mood/affect, anxiety Head: normocephalic, atraumatic Eyes: nl conjunctiva, EOMI, nl sclera ENMT: nl external ears & nose, nl lips & teeth, mucosa pink and moist Neck: supple, non-tender; No jvd Respiratory: normal air movement; No congested cough, No labored breathing Cardiovascular: regular rate and rhythm, nl pulses Gastrointestinal: soft, ruq tenderness. Cholecystostomy drain. No distended Genitourinary - Female: nl external genitalia Musculoskeletal: nl extremities to inspection, nl gait and stance Extremities: normal pulses Neurological: nl mental status, nl speech, nl strength Skin: No rash or lesions Results Result Diagram: 05/31/18 0457 05/31/18 0457 ART CAMARGO NP May 31, 2018 12:58
--- NOTE | 2018-05-31 16:33 | CONS ---
Date/Time of Note Date/Time of Note DATE: 05/31/18 TIME: 16:31 Assessment/Plan Assessment/Plan Chief Complaint/Hosp Course Assessment: Probable coronary artery disease - small reversible perfusion inferior wall defect on Lexiscan SPECT, corresponding to the inferolateral wall motion abnormalities on echocardiogram, likely represents underlying right coronary artery disease; clinically stable Atypical chest pain - appears gastrointestinal due to acute cholecystitis Acute cholecystitis - status post cholecystostomy tube placement 05/29/2018 Recommendations: -continue aspirin 81mg daily -patient will eventually need cardiac catheterization as outpatient, once acute biliary issues have resolved Consultation Date/Type/Reason Admit Date/Time May 26, 2018 at 22:22 Initial Consult Date 05/27/18 Type of Consult Cardiology 24 HR Interval Summary Free Text/Dictation Low grade fever to 100.8 F. Detailed Summary Additional Comments 14 point review of systems without changes. Exam/Review of Systems Vital Signs Vitals Vital Signs Date Temp Pulse Resp B/P (MAP) Pulse Ox O2 O2 Flow FiO2 Time Delivery Rate 05/31/18 98.0 76 18 104/61 98 15:41 (75) 05/29/18 Room Air 20:45 05/28/18 2.0 08:30 Intake and Output 05/30/18 05/30/18 05/31/18 1414:59 22:59 06:59 IntakeIntake Total 700 ml 820 ml OutputOutput Total 310 ml BalanceBalance 700 ml 510 ml Exam Constitutional: alert, well developed Psych: no complaints, nl mood/affect Head: normocephalic, atraumatic Eyes: nl conjunctiva, nl lids ENMT: nl external ears & nose, nl lips & teeth Neck: supple, non-tender; No jvd Respiratory: clear to auscultation, normal air movement Cardiovascular: regular rate and rhythm Gastrointestinal: soft, non-tender Musculoskeletal: nl extremities to inspection Extremities: No cyanosis, No clubbing, No edema Neurological: nl mental status, nl speech Medications Medications Current Medications IV Flush (NS 3 ml) 3 ml PER PROTOCOL IV ; Start 05/27/18 at 02:30 Nitroglycerin (Nitroglycerin (Sl Tab) 0.4 Mg) 1 tab Q5M PRN SL ANGINA Last administered on 05/27/18at 03:10; Admin Dose 1 TAB; Start 05/27/18 at 02:55 Levofloxacin/ Dextrose 100 ml @ 100 mls/hr DAILY IVPB Last administered on 05/31/18 08:11; Admin Dose 100 MLS/HR; Start 05/27/18 at 09:00 Acetaminophen (Tylenol Tab) 650 mg Q6H PRN PO MILD PAIN(1-3)OR ELEVATED TEMP Last administered on 05/31/18 10:46; Admin Dose 650 MG; Start 05/27/18 at 16:00 Metronidazole 100 ml @ 100 mls/hr Q8 IVPB Last administered on 05/31/18 13:16; Admin Dose 100 MLS/HR; Start 05/27/18 at 22:00 Hydromorphone HCl (Dilaudid) 0.4 mg Q4H PRN IV SEVERE PAIN LEVEL 7-10 Last administered on 05/30/18 02:28; Admin Dose 0.4 MG; Start 05/27/18 at 17:00 Ondansetron HCl (Zofran Inj) 4 mg Q4 PRN IV NAUSEA AND/OR VOMITING Last administered on 05/30/18 19:50; Admin Dose 4 MG; Start 05/27/18 at 17:30 Acetaminophen (Tylenol Supp) 650 mg Q4H PRN PA MILD PAIN(1-3) OR TEMP>38C; Start 05/28/18 at 21:30 Potassium Chloride/Dextrose/ Sod Cl 1,000 ml @ 50 mls/hr Q20H IV Last a dministered on 05/31/18 07:32; Admin Dose 50 MLS/HR; Start 05/29/18 at 10:30 Famotidine (Pepcid Iv) 20 mg DAILY IV Last administered on 05/31/18 08:11; Admin Dose 20 MG; Start 05/30/18 at 09:00 Aspirin (Halfprin) 81 mg DAILY PO Last administered on 05/31/18 08:11; Admin Dose 81 MG; Start 05/30/18 at 09:00 Acetaminophen/ Hydrocodone Bitart ([place] (10/325)) 1 tab Q4H PRN PO MODERATE PAIN LEVEL 4-6; Start 05/30/18 at 17:00 Enoxaparin Sodium (Lovenox) 40 mg DAILY SC Last administered on 05/31/18 08:19; Admin Dose 40 MG; Start 05/31/18 at 09:00 ABEBA CALIX MD 24, 2018 16:33
--- NOTE | 2018-05-31 16:45 | PN ---
Date/Time of Note Date/Time of Note DATE: 05/31/18 TIME: 16:44 Assessment/Plan VTE Prophylaxis Risk score (from Ns)>0 risk: 1 SCD applied (from [facility] [place]): No SCD contraindicated: other Pharmacological prophylaxis: LMWH Lines/Catheters IV Catheter Type (from [facility]): Peripheral IV Urinary Cath still in place: No Assessment/Plan Hospital Course SUBJECTIVE: Denies any abdominal pain. Continues to have febrile illness. OBJECTIVE: Physical Exam General: Obese 38 year-old female lying in bed in no apparent distress. HEENT: Normocephalic, atraumatic. Eyes: Anicteric sclerae, conjunctivae clear. ENT: Nasal septum midline, oral mucosa moist. Neck supple, no JVD noticed. Respiratory: Bilaterally clear breath sounds. No use of accessory muscles of respiration. No adventitious breath sounds. Cardiovascular: S1, S2 heard. Regular rate and rhythm. Abdomen: Soft, nontender, and nondistended. Bowel sounds positive in all 4 quadrants. RUQ Accordion drain in place. Genitourinary: Deferred. Extremities: No cyanosis, no clubbing, no edema. Peripheral pulses palpable. Neurologic: Cranial nerves II through XII grossly intact. The patient is awake, alert, and oriented. Skin: Normal skin turgor. No skin rashes. Labs & Vitals per chart ASSESSMENT & PLAN 38-year-old female with no significant past medical history who came to the emergency room with chief complaint of right upper quadrant pain with gallbladder ultrasound showing cholelithiasis and gallbladder sludge with underlying leukocytosis and febrile illness, who was admitted to inpatient setting for further treatment and evaluation. 1. Acute cholecystitis. -Status post IR guided cholecystostomy drain on 05/29/2018. -Continue antimicrobials. -Obtain cultures from the drain. 2. Chest pain with abnormal stress test. -Predominantly reversible perfusion defect in the inferior wall as per stress test. -Continue aspirin. -Needs eventual left heart catheterization. -Being followed by cardiology. 3. Normocytic anemia. -Continue to monitor H&H closely. 4. Obesity. -BMI 31 kg/m. -Advised weight reduction. 5. Fluids, electrolytes, and nutrition. -Clear liquid diet. 6. DVT prophylaxis. -Subcutaneous Lovenox. 7. Plan. -Continue antimicrobials. -Await clinical improvement. The patient was seen in collaboration with Dr. Johnson. Result Diagram: 05/31/18 0457 05/31/18 0457 Results 24hrs Laboratory Tests Test 05/31/18 04:57 White Blood Count 11.7 #H Red Blood Count 3.52 L Hemoglobin 9.9 L Hematocrit 30.1 L Mean Corpuscular Volume 85.5 Mean Corpuscular Hemoglobin 28.1 L Mean Corpuscular Hemoglobin Concent 32.9 Red Cell Distribution Width 13.5 Platelet Count 302 Mean Platelet Volume 9.8 Immature Granulocytes % 0.800 H Neutrophils % 68.5 Lymphocytes % 8.7 L Monocytes % 4.7 Eosinophils % 17.0 H Basophils % 0.3 Nucleated Red Blood Cells % 0.0 Immature Granulocytes # 0.090 H Neutrophils # 8.0 H Lymphocytes # 1.0 Monocytes # 0.6 Eosinophils # 2.0 H Basophils # 0.0 Nucleated Red Blood Cells # 0.0 Sodium Level 140 Potassium Level 3.7 Chloride Level 101 Carbon Dioxide Level 26 Anion Gap 13 Blood Urea Nitrogen 7 Creatinine 0.54 Est Glomerular Filtrat Rate mL/min > 60 Glucose Level 109 Calcium Level 8.0 L Magnesium Level 2.3 Total Bilirubin 0.0 L Direct Bilirubin 0.00 Indirect Bilirubin 0.0 Aspartate Amino Transf (AST/SGOT) 23 Alanine Aminotransferase (ALT/SGPT) 37 Alkaline Phosphatase 129 H Total Protein 6.2 Albumin 3.2 L Globulin 3.00 Albumin/Globulin Ratio 1.06 Exam/Review of Systems Vital Signs Vitals Vital Signs Date Temp Pulse Resp B/P (MAP) Pulse Ox O2 O2 Flow FiO2 Time Delivery Rate 05/31/18 98.0 76 18 104/61 98 15:41 (75) 05/29/18 Room Air 20:45 05/28/18 2.0 08:30 Intake and Output 05/30/18 05/30/18 05/31/18 1515:00 23:00 07:00 IntakeIntake Total 700 ml 820 ml OutputOutput Total 310 ml BalanceBalance 700 ml 510 ml Medications Medications Current Medications IV Flush (NS 3 ml) 3 ml PER PROTOCOL IV ; Start 05/27/18 at 02:30 Nitroglycerin (Nitroglycerin (Sl Tab) 0.4 Mg) 1 tab Q5M PRN SL ANGINA Last administered on 05/27/18at 03:10; Admin Dose 1 TAB; Start 05/27/18 at 02:55 Levofloxacin/ Dextrose 100 ml @ 100 mls/hr DAILY IVPB Last administered on 05/31/18 08:11; Admin Dose 100 MLS/HR; Start 05/27/18 at 09:00 Acetaminophen (Tylenol Tab) 650 mg Q6H PRN PO MILD PAIN(1-3)OR ELEVATED TEMP Last administered on 05/31/18 10:46; Admin Dose 650 MG; Start 05/27/18 at 16:00 Metronidazole 100 ml @ 100 mls/hr Q8 IVPB Last administered on 05/31/18 13:16; Admin Dose 100 MLS/HR; Start 05/27/18 at 22:00 Hydromorphone HCl (Dilaudid) 0.4 mg Q4H PRN IV SEVERE PAIN LEVEL 7-10 Last administered on 05/30/18 02:28; Admin Dose 0.4 MG; Start 05/27/18 at 17:00 Ondansetron HCl (Zofran Inj) 4 mg Q4 PRN IV NAUSEA AND/OR VOMITING Last administered on 05/30/18 19:50; Admin Dose 4 MG; Start 05/27/18 at 17:30 Acetaminophen (Tylenol Supp) 650 mg Q4H PRN ME MILD PAIN(1-3) OR TEMP>38C; Start 05/28/18 at 21:30 Potassium Chloride/Dextrose/ Sod Cl 1,000 ml @ 50 mls/hr Q20H IV Last administered on 05/31/18 07:32; Admin Dose 50 MLS/HR; Start 05/29/18 at 10:30 Famotidine (Pepcid Iv) 20 mg DAILY IV Last administered on 05/31/18 08:11; Admin Dose 20 MG; Start 05/30/18 at 09:00 Aspirin (Halfprin) 81 mg DAILY PO Last administered on 05/31/18 08:11; Admin Dose 81 MG; Start 05/30/18 at 09:00 Acetaminophen/ Hydrocodone Bitart ([place] (10/325)) 1 tab Q4H PRN PO MODERATE PAIN LEVEL 4-6; Start 05/30/18 at 17:00 Enoxaparin Sodium (Lovenox) 40 mg DAILY SC Last administered on 05/31/18 08:19; Admin Dose 40 MG; Start 05/31/18 at 09:00 DALLAS BURNHAM NP May 31, 2018 16:45
--- NOTE | 2018-05-31 18:24 | NUR ---
EOSS PT IS STILL HAVING ONGOING FEVERS THROUGHOUT THE DAY. TYLENOL GIVEN, IV ATV, AND COOLING MEASURES DONE. HOURLY ROUNDING DONE, CALL LIGHT WITHIN REACH, BED ALARM REFUSED. PT IS ABLE TO REPOSITION SELF. ALL NEEDS WERE MET.
[2018-06-01] VITALS (11 sets, daily range): BP systolic 100–117; BP diastolic 63–70; PULSE 65–95; RESP 18–20
[2018-06-01] MEDS: D5-NS + KCL 20 MEQ 1,000 ML IV SCH ×2 (03:19→11:49)
[2018-06-01] MEDS: metroNIDAZOLE 500 MG/NS (PMX) 100 ML IVPB SCH ×2 (05:31→13:18)
--- NOTE | 2018-06-01 05:58 | NUR ---
eoss; pt now afebrile 98.7. Dr. Bowens made aware re elevated temp before mn no order received . pt denies any pain .will continue to monitor.
[2018-06-01] MEDS: LEVOFLOXACIN 500MG/D5W (PMX) 100 ML IVPB SCH (10:10)
[2018-06-01] MEDS: ACETAMINOPHEN 325 MG TAB PO PRN ×2 (10:11→17:25)
[2018-06-01] MEDS: ASPIRIN (EC) 81 MG TAB PO SCH (10:11)
[2018-06-01] MEDS: FAMOTIDINE 20 MG INJ IV SCH (10:11)
[2018-06-01] MEDS: ENOXAPARIN 40 MG/0.4 ML SYG SC SCH (10:29)
--- NOTE | 2018-06-01 11:41 | PN ---
Date/Time of Note Date/Time of Note DATE: 06/01/18 TIME: 11:38 Assessment/Plan VTE Prophylaxis Risk score (from Ns)>0 risk: 1 SCD applied (from [facility] [place] No SCD contraindicated: other Pharmacological prophylaxis: LMWH Lines/Catheters IV Catheter Type (from [facility]): Peripheral IV Urinary Cath still in place: No Assessment/Plan Hospital Course SUBJECTIVE: Denies any abdominal pain. Continues to have febrile illness. OBJECTIVE: Physical Exam General: Obese 38 year-old female lying in bed in no apparent distress. HEENT: Normocephalic, atraumatic. Eyes: Anicteric sclerae, conjunctivae clear. ENT: Nasal septum midline, oral mucosa moist. Neck supple, no JVD noticed. Respiratory: Bilaterally clear breath sounds. No use of accessory muscles of respiration. No adventitious breath sounds. Cardiovascular: S1, S2 heard. Regular rate and rhythm. Abdomen: Soft, nontender, and nondistended. Bowel sounds positive in all 4 quadrants. RUQ Accordion drain in place. Genitourinary: Deferred. Extremities: No cyanosis, no clubbing, no edema. Peripheral pulses palpable. Neurologic: Cranial nerves II through XII grossly intact. The patient is awake, alert, and oriented. Skin: Normal skin turgor. No skin rashes. Labs & Vitals per chart ASSESSMENT & PLAN 38-year-old female with no significant past medical history who came to the emergency room with chief complaint of right upper quadrant pain with gallbladder ultrasound showing cholelithiasis and gallbladder sludge with underlying leukocytosis and febrile illness, who was admitted to inpatient setting for further treatment and evaluation. 1. Acute cholecystitis. -Status post IR guided cholecystostomy drain on 05/29/2018. -Continue antimicrobials. -Obtain cultures from the drain. 2. Chest pain with abnormal stress test. -Predominantly reversible perfusion defect in the inferior wall as per stress test. -Continue aspirin. -Needs eventual left heart catheterization. -Being followed by cardiology. 3. Corynebacterium jeikeium UTI. -Start antibiotics as per sensitivities. -Obtain ID consult. 4. Normocytic anemia. -Continue to monitor H&H closely. 5. Obesity. -BMI 31 kg/m. -Advised weight reduction. 6. Fluids, electrolytes, and nutrition. -Clear liquid diet. 7. DVT prophylaxis. -Subcutaneous Lovenox. 8. Plan. -Continue antimicrobials. -Await clinical improvement. -Obtain ID consult. The patient was seen in collaboration with Dr. Johnson. Result Diagram: 06/01/18 0536 06/01/1836 Results 24hrs RUN DATE: 06/01/18 [facility] PAGE 1 RUN TIME: [id number] [place] [address] En Paris M.D. Account Administrator Rachael Bain M.D. Co-Account Administrator JOSELUIS#: [id number] Name: CHEYENNE CEBALLOS Age/Sex: 38/F Attend Dr: BARRIE PADILLA MD Acct: [id number] MR# : [id number] : 1980 Location: [address] [place] [address] Admit: 05/26/18 Specimen: [id number] Status: Complete Peg: 05/30/18-40 Rcvd: 1 07/31/17 Source: DAYSI HERNÁNDEZ Sp Descrip: ---- Procedure Result Microbiology URINE CULTURE Final Organism 1 CORYNEBACTER ELISAIUM ([facility] Dannie) COLONY COUNT 70,000 - 80,000 CFU/ml Clinical susceptibiltiy testing standard for this organism have not been established. However, this organism has demonstrated in vitro growth inhibition to the following chemotherapeutic agents listed as susceptible. Nirav KIM Zone Size RX --------- --- * AMPICILLIN R * AMPICILLIN/SULBACTAM R * CEFAZOLIN R * CEFOTAXIME R * CIPROFLOXACIN R * DOXYCYCLINE R * NITROFURANTOIN R * PENICILLIN R * VANCOMYCIN S * TRIMETHOPRIM/SULFAMETHOXAZOLE R ............................................................................... ............. Flags: Critical Hi = *H Critical Lo = *L Microbiology Abnormal = * Abnormal Hi = H Abnormal Lo = L Blood Bank Abnormal = * Susceptability Flags: S = Sensitive R = Resistant I = Intermediate END OF REPORT Laboratory Tests Test 06/01/18 05:36 White Blood Count 14.4 #H Red Blood Count 4.02 L Hemoglobin 11.2 L Hematocrit 34.0 L Mean Corpuscular Volume 84.6 Mean Corpuscular Hemoglobin 27.9 L Mean Corpuscular Hemoglobin Concent 32.9 Red Cell Distribution Width 13.5 Platelet Count 361 Mean Platelet Volume 9.6 Immature Granulocytes % 0.900 H Neutrophils % Segmented Neutrophils % (Manual) 52 Band Neutrophils % (Manual) 14 H Lymphocytes % Lymphocytes % (Manual) 10 L Reactive Lymphocytes % (Manual) 3 H Monocytes % Monocytes % (Manual) 1 Eosinophils % Eosinophils % (Manual) 20 H Basophils % Nucleated Red Blood Cells % 0.0 Immature Granulocytes # 0.130 H Neutrophils # Neutrophils # (Manual) 7.8 H Band Neutrophils # 2.0 H Lymphocytes (Manual) 1.4 Lymphocytes # Reactive Lymphocytes # 0.4 H Monocytes # Monocytes # (Manual) 0.1 L Eosinophils # Basophils # Nucleated Red Blood Cells # Platelet Estimate NORMAL Giant Platelets 1 H Sodium Level 141 Potassium Level 3.8 Chloride Level 101 Carbon Dioxide Level 27 Anion Gap 13 Blood Urea Nitrogen 7 Creatinine 0.46 Est Glomerular Filtrat Rate mL/min > 60 Glucose Level 102 Calcium Level 8.4 Magnesium Level 2.4 Total Bilirubin 0.0 L Direct Bilirubin 0.00 Indirect Bilirubin 0.0 Aspartate Amino Transf (AST/SGOT) 26 Alanine Aminotransferase (ALT/SGPT) 24 Alkaline Phosphatase 128 H Total Protein 6.6 Albumin 3.4 Globulin 3.20 Albumin/Globulin Ratio 1.06 Exam/Review of Systems Vital Signs Vitals Vital Signs Date Temp Pulse Resp B/P (MAP) Pulse Ox O2 O2 Flow FiO2 Time Delivery Rate 06/01/18 98.2 74 20 111/70 98 Room Air 11:29 (84) 05/28/18 2.0 08:30 Intake and Output 05/31/18 05/31/18 06/01/18 1515:00 23:00 07:00 IntakeIntake Total 600 ml 150 ml OutputOutput Total 50 ml 150 ml BalanceBalance 550 ml 0 ml Medications Medications Current Medications IV Flush (NS 3 ml) 3 ml PER PROTOCOL IV ; Start 05/27/18 at 02:30 Nitroglycerin (Nitroglycerin (Sl Tab) 0.4 Mg) 1 tab Q5M PRN SL ANGINA Last administered on 05/27/18at 03:10; Admin Dose 1 TAB; Start 05/27/18 at 02:55 Levofloxacin/ Dextrose 100 ml @ 100 mls/hr DAILY IVPB Last administered on 06/01/18 10:10; Admin Dose 100 MLS/HR; Start 05/27/18 at 09:00 Acetaminophen (Tylenol Tab) 650 mg Q6H PRN PO MILD PAIN(1-3)OR ELEVATED TEMP Last administered on 06/01/18 10:11; Admin Dose 650 MG; Start 05/27/18 at 16:00 Metronidazole 100 ml @ 100 mls/hr Q8 IVPB Last administered on 06/01/18 05:31; Admin Dose 100 MLS/HR; Start 05/27/18 at 22:00 Hydromorphone HCl (Dilaudid) 0.4 mg Q4H PRN IV SEVERE PAIN LEVEL 7-10 Last administered on 05/30/18 02:28; Admin Dose 0.4 MG; Start 05/27/18 at 17:00 Ondansetron HCl (Zofran Inj) 4 mg Q4 PRN IV NAUSEA AND/OR VOMITING Last administered on 05/30/18at 19:50; Admin Dose 4 MG; Start 05/27/18 at 17:30 Acetaminophen (Tylenol Supp) 650 mg Q4H PRN [place] MILD PAIN(1-3) OR TEMP>38C; Start 05/28/18 at 21:30 Potassium Chloride/Dextrose/ Sod Cl 1,000 ml @ 50 mls/hr Q20H IV Last administered on 05/31/18 07:32; Admin Dose 50 MLS/HR; Start 05/29/18 at 10:30 Famotidine (Pepcid Iv) 20 mg DAILY IV Last administered on 06/01/18 10:11; Admin Dose 20 MG; Start 05/30/18 at 09:00 Aspirin (Halfprin) 81 mg DAILY PO Last administered on 06/01/18 10:11; Admin Dose 81 MG; Start 05/30/18 at 09:00 Acetaminophen/ Hydrocodone Bitart ([place] (10/325)) 1 tab Q4H PRN PO MODERATE PAIN LEVEL 4-6; Start 05/30/18 at 17:00 Enoxaparin Sodium (Lovenox) 40 mg DAILY SC Last administered on 06/01/18 10:29; Admin Dose 40 MG; Start 05/31/18 at 09:00 DALLAS BURNHAM NP Jun 01, 2018 11:41
[2018-06-01] MEDS: ONDANSETRON 4 MG INJ IV PRN (11:49)
--- NOTE | 2018-06-01 11:58 | NUR ---
38 YO ADMITTED FOR ACUTE CHOLECYSTITIS S/P IR-GUIDED DRAIN PLACEMENT ON 05/29 TO START IV VANCO PER PROTOCOL FOR PERSISTENT FEVERS/LEUKOCYTOSIS CURRENT ABXS: LEVAQUIN +METRONIDAZOLE CXS: 05/30 UCX:CORYNEBACTER JEIKEIUM , 05/31 GALL BLADDER FLUID: S.AUREUS (SUSC PEND) BUN/SCR: 7/0.26 WBC- 14.4K TMAX 103/101.3 WT- 80.3KG, HT 63" A/P: WILL LOAD W/ 1.5GM IV X 1, THEN MD OF 1GM IVPB Q8H FOR ESTIMATED THERAPEUTIC GOAL OF 10-15. TROUGH AT SS.
[2018-06-01] MEDS ORDERED: VANCOMYCIN IV PER PHARMACY XX SCH (12:00)
[2018-06-01] MEDS ORDERED: VANCOMYCIN 1.5 GM in SOD CHLORIDE 0.9% 250 ML IVPB SCH (14:00)
[2018-06-01] MEDS: VANCOMYCIN 1 GM 250 ML IVPB SCH (19:55)
--- NOTE | 2018-06-01 21:47 | PN ---
Date/Time of Note Date/Time of Note DATE: 06/01/18 TIME: 21:44 Assessment/Plan Lines/Catheters IV [facility] Type ([facility] Peripheral IV Galvez in Place (from Nrs): No Assessment/Plan Chief Complaint/Hosp Course 1. Abdominal pain with symptomatic cholelithiasis, and acute cholecystitis with significant leukocytosis. s/p IR cholecystostomy drain 05/29. WBC and Bands worsening but clinically improving. -Continue drain -Continue IV abx > ID consult -IVF 2. Leukocytosis, worsening with bandemia -As above 3. Chest pressure with abnormal reversible stress test -Cardiac optimization and eventual cath 4. Obesity: BMI: 31 -diet and exercise optimization -encourage weight loss 5. Eczema: -Medical management Thank you Subjective 24 Hr Interval Summary No pain. Fevers resolved. N chills. WBC worsening with bandemia. No chest pain, sob, congested cough, cp, palpitations, joseph, dizziness, nausea, vomiting, diarrhea, dysuria. Exam/Review of Systems Vital Signs Vitals Vital Signs Date Temp Pulse Resp B/P (MAP) Pulse Ox O2 O2 Flow FiO2 Time Delivery Rate 06/01/18 98.2 76 20 111/70 98 Room Air 20:00 (84) 05/28/18 2.0 08:30 Intake and Output 05/31/18 05/31/18 06/01/18 1515:00 23:00 07:00 IntakeIntake Total 600 ml 150 ml OutputOutput Total 50 ml 150 ml BalanceBalance 550 ml 0 ml Exam Free Text/Dictation Constitutional: alert, oriented, well developed Psych: nl mood/affect, anxiety Head: normocephalic, atraumatic Eyes: nl conjunctiva, EOMI, nl sclera ENMT: nl external ears & nose, nl lips & teeth, mucosa pink and moist Neck: supple, non-tender; No jvd Respiratory: normal air movement; No congested cough, No labored breathing Cardiovascular: regular rate and rhythm, nl pulses Gastrointestinal: soft, NT. Cholecystostomy drain. No distended Genitourinary - Female: nl external genitalia Musculoskeletal: nl extremities to inspection, nl gait and stance Extremities: normal pulses Neurological: nl mental status, nl speech, nl strength Skin: No rash or lesions Results Result Diagram: 06/01/1836 06/01/18535 ELIZABETH PRO MD Jun 01, 2018 21:47
[2018-06-02] VITALS (9 sets, daily range): BP systolic 108–127; BP diastolic 59–80; PULSE 56–73; RESP 18–20
[2018-06-02] MEDS: metroNIDAZOLE 500 MG/NS (PMX) 100 ML IVPB SCH ×3 (00:21→14:35)
[2018-06-02] MEDS: VANCOMYCIN 1 GM 250 ML IVPB SCH ×2 (03:16→11:27)
--- NOTE | 2018-06-02 07:56 | NUR ---
Pt. a/o x4. Pt ambulatory. Denied any pain upon my shift. Hourly rounding completed. Bed in lowest position. Call light within reach. Accordion drain monitored. Antibiotics administered.
[2018-06-02] MEDS: FAMOTIDINE 20 MG INJ IV SCH (08:53)
[2018-06-02] MEDS: LEVOFLOXACIN 500MG/D5W (PMX) 100 ML IVPB SCH (08:53)
[2018-06-02] MEDS: ASPIRIN (EC) 81 MG TAB PO SCH (08:53)
[2018-06-02] MEDS: ENOXAPARIN 40 MG/0.4 ML SYG SC SCH (09:03)
--- NOTE | 2018-06-02 09:37 | PN ---
Date/Time of Note Date/Time of Note DATE: 06/02/18 TIME: 09:36 Assessment/Plan Lines/Catheters IV Catheter Type (from [facility]): Peripheral IV Galvez in Place (from [facility]): No Assessment/Plan Chief Complaint/Hosp Course 1. Abdominal pain with symptomatic cholelithiasis, and acute cholecystitis with significant leukocytosis. s/p IR cholecystostomy drain 05/29. WBC and Bands worsening but clinically improving. -Continue drain -Continue IV abx > ID consult -IVF 2. Leukocytosis, WBC improved with bandemia -As above 3. Chest pressure with abnormal reversible stress test -Cardiac optimization and eventual cath 4. Obesity: BMI: 31 -diet and exercise optimization -encourage weight loss 5. Eczema: -Medical management Thank you. Patient seen and examined in collaboration with Dr. Onesimo Fleming. Subjective 24 Hr Interval Summary Feels much improved. No fevers, chills, sob, congested cough, cp, palpitations, joseph, dizziness, n/v/d/dysuria. WBC downtrending. Exam/Review of Systems Vital Signs Vitals Vital Signs Date Temp Pulse Resp B/P (MAP) Pulse Ox O2 O2 Flow FiO2 Time Delivery Rate 06/02/18 73 08:38 06/02/18 98.9 20 118/59 96 Room Air 07:34 (78) Intake and Output 06/01/18 06/01/18 06/02/18 1414:59 22:59 06:59 IntakeIntake Total 1560 ml OutputOutput Total 100 ml BalanceBalance 1460 ml Exam Free Text/Dictation Constitutional: alert, oriented, well developed Psych: nl mood/affect, anxiety Head: normocephalic, atraumatic Eyes: nl conjunctiva, EOMI, nl sclera ENMT: nl external ears & nose, nl lips & teeth, mucosa pink and moist Neck: supple, non-tender; No jvd Respiratory: normal air movement; No congested cough, No labored breathing Cardiovascular: regular rate and rhythm, nl pulses Gastrointestinal: soft, NT. Cholecystostomy drain. No distended Genitourinary - Female: nl external genitalia Musculoskeletal: nl extremities to inspection, nl gait and stance Extremities: normal pulses Neurological: nl mental status, nl speech, nl strength Skin: No rash or lesions Results Result Diagram: 06/02/1843406/02/18434 ART CAMARGO NP Jun 02, 2018 09:37
--- NOTE | 2018-06-02 13:10 | PN ---
Date/Time of Note Date/Time of Note DATE: 06/02/18 TIME: 13:08 Assessment/Plan VTE Prophylaxis Risk score (from Ns)>0 risk: 2 SCD applied (from [facility] [place] No SCD contraindicated: other Pharmacological prophylaxis: LMWH Lines/Catheters IV Catheter Type (from [facility]): Peripheral IV Urinary Cath still in place: No Assessment/Plan Hospital Course SUBJECTIVE: Denies any abdominal pain. Remains afebrile. OBJECTIVE: Physical Exam General: Obese 38 year-old female lying in bed in no apparent distress. HEENT: Normocephalic, atraumatic. Eyes: Anicteric sclerae, conjunctivae clear. ENT: Nasal septum midline, oral mucosa moist. Neck supple, no JVD noticed. Respiratory: Bilaterally clear breath sounds. No use of accessory muscles of respiration. No adventitious breath sounds. Cardiovascular: S1, S2 heard. Regular rate and rhythm. Abdomen: Soft, nontender, and nondistended. Bowel sounds positive in all 4 quadrants. RUQ Accordion drain in place. Genitourinary: Deferred. Extremities: No cyanosis, no clubbing, no edema. Peripheral pulses palpable. Neurologic: Cranial nerves II through XII grossly intact. The patient is awake, alert, and oriented. Skin: Normal skin turgor. No skin rashes. Labs & Vitals per chart ASSESSMENT & PLAN 38-year-old female with no significant past medical history who came to the emergency room with chief complaint of right upper quadrant pain with gallbladder ultrasound showing cholelithiasis and gallbladder sludge with underlying leukocytosis and febrile illness, who was admitted to inpatient setting for further treatment and evaluation. 1. Acute cholecystitis. -Status post IR guided cholecystostomy drain on 05/29/2018. -Continue antimicrobial as per sensitivities. 2. Chest pain with abnormal stress test. -Predominantly reversible perfusion defect in the inferior wall as per stress test. -Continue aspirin. -Needs eventual left heart catheterization. -Being followed by cardiology. 3. Corynebacterium jeikeium UTI. -Continue antibiotics as per sensitivities. -ID consult. 4. Normocytic anemia. -Continue to monitor H&H closely. 5. Obesity. -BMI 31 kg/m. -Advised weight reduction. 6. Fluids, electrolytes, and nutrition. -Soft diet. 7. DVT prophylaxis. -Subcutaneous Lovenox. 8. Plan. -Continue antimicrobials. -Await clinical improvement. The patient was seen in collaboration with Dr. Johnson. Result Diagram: 06/02/18 0435 06/02/18 0435 Results 24hrs Laboratory Tests Test 06/02/18 04:35 White Blood Count 10.9 #H Red Blood Count 3.61 L Hemoglobin 10.0 L Hematocrit 30.9 L Mean Corpuscular Volume 85.6 Mean Corpuscular Hemoglobin 27.7 L Mean Corpuscular Hemoglobin Concent 32.4 Red Cell Distribution Width 13.3 Platelet Count 367 Mean Platelet Volume 9.5 Immature Granulocytes % 1.400 H Neutrophils % 55.1 Segmented Neutrophils % (Manual) 54 Lymphocytes % 13.5 L Lymphocytes % (Manual) 17 Reactive Lymphocytes % (Manual) 3 H Monocytes % 8.3 Monocytes % (Manual) 8 Eosinophils % 21.2 H Eosinophils % (Manual) 18 H Basophils % 0.5 Nucleated Red Blood Cells % 0.0 Immature Granulocytes # 0.150 H Neutrophils # 6.0 Lymphocytes (Manual) 1.8 Lymphocytes # 1.5 Reactive Lymphocytes # 0.3 H Monocytes # 0.9 Monocytes # (Manual) 0.8 Eosinophils # 2.3 H Basophils # 0.1 Nucleated Red Blood Cells # 0.0 Platelet Estimate NORMAL Polychromasia 3+ Anisocytosis 1+ Microcytosis 1+ Sodium Level 140 Potassium Level 3.7 Chloride Level 103 Carbon Dioxide Level 28 Anion Gap 9 Blood Urea Nitrogen 8 Creatinine 0.55 Est Glomerular Filtrat Rate mL/min > 60 Glucose Level 97 Calcium Level 8.2 L Magnesium Level 2.3 Total Bilirubin 0.1 L Direct Bilirubin 0.00 Indirect Bilirubin 0.1 Aspartate Amino Transf (AST/SGOT) 31 Alanine Aminotransferase (ALT/SGPT) 33 Alkaline Phosphatase 124 H Total Protein 6.4 Albumin 3.0 L Globulin 3.40 H Albumin/Globulin Ratio 0.88 Exam/Review of Systems Vital Signs Vitals Vital Signs Date Temp Pulse Resp B/P (MAP) Pulse Ox O2 O2 Flow FiO2 Time Delivery Rate 06/02/18 64 12:07 06/02/18 98.1 20 124/76 98 Room Air 11:04 (92) Intake and Output 06/01/18 06/01/18 06/02/18 1515:00 23:00 07:00 IntakeIntake Total 1560 ml OutputOutput Total 100 ml BalanceBalance 1460 ml Medications Medications Current Medications IV Flush (NS 3 ml) 3 ml PER PROTOCOL IV ; Start 05/27/18 at 02:30 Nitroglycerin (Nitroglycerin (Sl Tab) 0.4 Mg) 1 tab Q5M PRN SL ANGINA Last administered on 05/27/18 03:10; Admin Dose 1 TAB; Start 05/27/18 at 02:55 Levofloxacin/ Dextrose 100 ml @ 100 mls/hr DAILY IVPB Last administered on 08:53; Admin Dose 100 MLS/HR; Start 05/27/18 at 09:00 Acetaminophen (Tylenol Tab) 650 mg Q6H PRN PO MILD PAIN(1-3)OR ELEVATED TEMP Last administered on 06/01/18 17:25; Admin Dose 650 MG; Start 05/27/18 at 16:00 Metronidazole 100 ml @ 100 mls/hr Q8 IVPB Last administered on 06/02/18 05:32; Admin Dose 100 MLS/HR; Start 05/27/18 at 22:00 Hydromorphone HCl (Dilaudid) 0.4 mg Q4H PRN IV SEVERE PAIN LEVEL 7-10 Last administered on 05/30/18 02:28; Admin Dose 0.4 MG; Start 05/27/18 at 17:00 Ondansetron HCl (Zofran Inj) 4 mg Q4 PRN IV NAUSEA AND/OR VOMITING Last administered on 06/01/18 11:49; Admin Dose 4 MG; Start 05/27/18 at 17:30 Acetaminophen (Tylenol Supp) 650 mg Q4H PRN [place] MILD PAIN(1-3) OR TEMP>38C; Start 05/28/18 at 21:30 Potassium Chloride/Dextrose/ Sod Cl 1,000 ml @ 50 mls/hr Q20H IV Last administered on 06/01/18 11:49; Admin Dose 50 MLS/HR; Start 05/29/18 at 10:30 Famotidine (Pepcid Iv) 20 mg DAILY IV Last administered on 06/02/18 08:53; Admin Dose 20 MG; Start 05/30/18 at 09:00 Aspirin (Halfprin) 81 mg DAILY PO Last administered on 06/02/18 08:53; Admin Dose 81 MG; Start 05/30/18 at 09:00 Acetaminophen/ Hydrocodone Bitart ([place] (10)) 1 tab Q4H PRN PO MODERATE PAIN LEVEL 4-6; Start 05/30/18 at 17:00 Enoxaparin Sodium (Lovenox) 40 mg DAILY SC Last administered on 06/02/18at 09:03; Admin Dose 40 MG; Start 05/31/18 at 09:00 Vancomycin HCl (Vanco Iv Per Pharmacy) VANCOMYCIN PER PHARMACY PER PROTOCOL XX ; Start 06/01/18 at 12:00 Vancomycin HCl 250 ml @ 125 mls/hr Q8H IVPB Last administered on 06/02/18at 11:27; Admin Dose 125 MLS/HR; Start 06/01/18 at 20:00 DALLAS BURNHAM NP Jun 02, 2018 13:10
--- NOTE | 2018-06-02 13:25 | CONS ---
Date/Time of Note Date/Time of Note DATE: 06/02/18 TIME: 13:24 Assessment/Plan Assessment/Plan Hospital Course Patient is awake and looks comfortable, no fevers overnight. T-max yesterday 101.3. WBC 10.9 H&H 10 and 30.9 platelets 367 neutrophils 55.1 BUN 8 creatinine 0.55 Microbiology: Urine culture on admission grew Corynebacterium group JK, blood cultures negative, gallbladder drainage culture growing oxacillin sensitive staph aureus Antimicrobials: Vancomycin, levofloxacin, Flagyl Indwelling: Right-sided cholecystostomy tube Physical examination: Well-nourished well-developed middle-aged woman who is alert in no distress. Head atraumatic normocephalic sclera nonicteric. Neck is supple chest rise symmetrical breath sounds diminished bases. Heart: S1-S2 abdomen soft bowel sounds present extremities without cyanosis Assessment: 1. Resolving sepsis 2. Acute cholecystitis, status post IR guided cholecystostomy drain 05/29/18 3. Urinary tract infection 4. Obesity 5. Oral thrush 6. Allergy: Penicillin Plan: Patient is stable, continue present care and antibiotics, follow surgical and cardiology recommendations. Add oral nystatin swish, anticipate discharge on oral antibiotics Result Diagram: 06/02/18 0435 06/02/18 0435 Results 24hrs Laboratory Tests Test 06/02/18 04:35 White Blood Count 10.9 #H Red Blood Count 3.61 L Hemoglobin 10.0 L Hematocrit 30.9 L Mean Corpuscular Volume 85.6 Mean Corpuscular Hemoglobin 27.7 L Mean Corpuscular Hemoglobin Concent 32.4 Red Cell Distribution Width 13.3 Platelet Count 367 Mean Platelet Volume 9.5 Immature Granulocytes % 1.400 H Neutrophils % 55.1 Segmented Neutrophils % (Manual) 54 Lymphocytes % 13.5 L Lymphocytes % (Manual) 17 Reactive Lymphocytes % (Manual) 3 H Monocytes % 8.3 Monocytes % (Manual) 8 Eosinophils % 21.2 H Eosinophils % (Manual) 18 H Basophils % 0.5 Nucleated Red Blood Cells % 0.0 Immature Granulocytes # 0.150 H Neutrophils # 6.0 Lymphocytes (Manual) 1.8 Lymphocytes # 1.5 Reactive Lymphocytes # 0.3 H Monocytes # 0.9 Monocytes # (Manual) 0.8 Eosinophils # 2.3 H Basophils # 0.1 Nucleated Red Blood Cells # 0.0 Platelet Estimate NORMAL Polychromasia 3+ Anisocytosis 1+ Microcytosis 1+ Sodium Level 140 Potassium Level 3.7 Chloride Level 103 Carbon Dioxide Level 28 Anion Gap 9 Blood Urea Nitrogen 8 Creatinine 0.55 Est Glomerular Filtrat Rate mL/min > 60 Glucose Level 97 Calcium Level 8.2 L Magnesium Level 2.3 Total Bilirubin 0.1 L Direct Bilirubin 0.00 Indirect Bilirubin 0.1 Aspartate Amino Transf (AST/SGOT) 31 Alanine Aminotransferase (ALT/SGPT) 33 Alkaline Phosphatase 124 H Total Protein 6.4 Albumin 3.0 L Globulin 3.40 H Albumin/Globulin Ratio 0.88 Consultation Date/Type/Reason Admit Date/Time May 26, 2018 at 22:22 Initial Consult Date 05/27/18 Type of Consult ID Exam/Review of Systems Vital Signs Vitals Vital Signs Date Temp Pulse Resp B/P (MAP) Pulse Ox O2 O2 Flow FiO2 Time Delivery Rate 06/02/18 64 12:07 06/02/18 98.1 20 124/76 98 Room Air 11:04 (92) Intake and Output 06/01/18 06/01/18 06/02/18 1414:59 22:59 06:59 IntakeIntake Total 1560 ml OutputOutput Total 100 ml BalanceBalance 1460 ml Medications Medications Current Medications IV Flush (NS 3 ml) 3 ml PER PROTOCOL IV ; Start 05/27/18 at 02:30 Nitroglycerin (Nitroglycerin (Sl Tab) 0.4 Mg) 1 tab Q5M PRN SL ANGINA Last administered on 05/27/18at 03:10; Admin Dose 1 TAB; Start 05/27/18 at 02:55 Levofloxacin/ Dextrose 100 ml @ 100 mls/hr DAILY IVPB Last administered on 06/02/18at 08:53; Admin Dose 100 MLS/HR; Start 05/27/18 at 09:00 Acetaminophen (Tylenol Tab) 650 mg Q6H PRN PO MILD PAIN(1-3)OR ELEVATED TEMP L ast administered on 06/01/18at 17:25; Admin Dose 650 MG; Start 05/27/18 at 16:00 Metronidazole 100 ml @ 100 mls/hr Q8 IVPB Last administered on 06/02/18at 05:32; Admin Dose 100 MLS/HR; Start 05/27/18 at 22:00 Hydromorphone HCl (Dilaudid) 0.4 mg Q4H PRN IV SEVERE PAIN LEVEL 7-10 Last administered on 05/30/18 02:28; Admin Dose 0.4 MG; Start 05/27/18 at 17:00 Ondansetron HCl (Zofran Inj) 4 mg Q4 PRN IV NAUSEA AND/OR VOMITING Last administered on 06/01/18 11:49; Admin Dose 4 MG; Start 05/27/18 at 17:30 Acetaminophen (Tylenol Supp) 650 mg Q4H PRN [place] MILD PAIN(1-3) OR TEMP>38C; Start 05/28/18 at 21:30 Potassium Chloride/Dextrose/ Sod Cl 1,000 ml @ 50 mls/hr Q20H IV Last administered on 06/01/18 11:49; Admin Dose 50 MLS/HR; Start 05/29/18 at 10:30 Famotidine (Pepcid Iv) 20 mg DAILY IV Last administered on 06/02/18at 08:53; Admin Dose 20 MG; Start 05/30/18 at 09:00 Aspirin (Halfprin) 81 mg DAILY PO Last administered on 06/02/18at 08:53; Admin Dose 81 MG; Start 05/30/18 at 09:00 Acetaminophen/ Hydrocodone Bitart ([place] (10/325)) 1 tab Q4H PRN PO MODERATE PAIN LEVEL 4-6; Start 05/30/18 at 17:00 Enoxaparin Sodium (Lovenox) 40 mg DAILY SC Last administered on 06/02/18at 09:03; Admin Dose 40 MG; Start 05/31/18 at 09:00 Vancomycin HCl (Vanco Iv Per Pharmacy) VANCOMYCIN PER PHARMACY PER PROTOCOL XX ; Start 06/01/18 at 12:00 Vancomycin HCl 250 ml @ 125 mls/hr Q8H IVPB Last administered on 06/02/18 11:27; Admin Dose 125 MLS/HR; Start 06/01/18 at 20:00 RICKEY QUINTANA NP Jun 02, 2018 13:25
--- NOTE | 2018-06-02 14:53 | CONS ---
DATE OF ADMISSION: 05/26/2018 DATE OF CONSULTATION: 06/02/2018 TYPE OF CONSULTATION: Infectious Disease. REASON FOR CONSULTATION: Antibiotic management. HISTORY OF PRESENT ILLNESS: Salome Acosta is a 38-year-old female who presented to [facility] emergency room with right upper quadrant pain and epigastric pain. The pain radiates to her back, associated with nausea and vomiting, mostly nonbloody, nonbilious, 1 episode with a small amount of blood. She also has epigastric pressure-like pain. Abdominal ultrasound showed multiple calcified g allstones. White count initially was 17,000. Liver count, chemistries and lipase were within normal limits. On 05/27/2018, her white count was 13.6, H and H of 11.7 and 35.8, platelet count 281,000. BUN and creatinine is 10/0.55. PAST MEDICAL HISTORY: As outlined. The patient also has a history of eczema. FAMILY HISTORY: Positive for diabetes. ALLERGIES: PENICILLIN. MEDICATIONS: Per chart. REVIEW OF SYSTEMS: Noncontributory. HOSPITAL COURSE: The patient was seen by GI who noted abdominal pain with symptomatic cholelithiasis , possible acute cholecystitis. She has a leukocytosis, obesity and eczema. The patient was placed on Levaquin on 05/27/2018. A gallbladder ultrasound showed multiple calcified gallstones within the gallbladder, small amount of sludge. Chest x-ray: Elevated right hemidiaphragm, subsegmental atelec tasis in the lower lobes. HIDA scan shows nonvisualization of the gallbladder up to 1 hour post-inje ction, no evidence of common bile duct obstruction. An abdominal CT scan on 05/29/2018 showed acute cholecystitis. The biliary tract is severely thickened and inflamed with dilated gallbladder, large central gallstone with significant pericholecystic inflammatory changes, no significant extrahepatic biliary dilatation. She had a CT-guided cholecystostomy on 05/29/2018, successful CT-guided cholecys tostomy tube placement procedure. No complications occurred. Fluid sent to the laboratory for moe sis. The gallbladder fluid grew out Staphylococcus aureus sensitive to everything, but penicillin in cluding cefazolin, vancomycin, rifampin, Levaquin. The patient is currently on vancomycin and Levaqu in. On 06/01/2018, white count was 14.4. PHYSICAL EXAMINATION: GENERAL: The patient is alert and oriented, in no acute distress. VITAL SIGNS: Stable. She is afebrile. SKIN: Without generalized rash. HEENT: Within normal limits. NECK: Supple. LYMPH NODES: None palpable. CHEST: Decreased breath sounds at the bases. HEART: Without murmur or gallop. ABDOMEN: Soft, nontender. Cholecystostomy drain in place. No organosplenomegaly or masses. EXTREMITIES: Without cyanosis, clubbing or edema. RECTAL AND GENITAL: Deferred. NEUROLOGIC: No focal neurological abnormality. IMPRESSION AND PLAN: The patient is currently on vancomycin, Levaquin and Flagyl. We can probably s top her Flagyl and vancomycin when she is ready for discharge and send her home on Levaquin alone. I will dictate my findings to the hospitalist and to Dr. Fleming. Dictated By: ROBERTA ZARATE MD, JD/WARNER Conf#: [id number] DID#: [id number] CC: NICK TRONCOSO MD; ABEBA CALIX MD; BARRIE GRIFFIN MD;*End*
--- NOTE | 2018-06-02 17:39 | CONS ---
Date/Time of Note Date/Time of Note DATE: 06/02/18 TIME: 17:38 Assessment/Plan Assessment/Plan Hospital Course Assessment: Probable coronary artery disease - small reversible perfusion inferior wall defect on Lexiscan SPECT, corresponding to the inferolateral wall motion abnormalities on echocardiogram, likely represents underlying right coronary artery disease; clinically stable Atypical chest pain - appears gastrointestinal due to acute cholecystitis Acute cholecystitis - status post cholecystostomy tube placement 05/29/2018 Recommendations: -continue aspirin 81mg daily -patient will eventually need cardiac catheterization as outpatient, once acute biliary issues have resolved Result Diagram: 06/02/18 0435 06/02/18 0435 Results 24hrs Laboratory Tests Test 06/02/18 04:35 White Blood Count 10.9 #H Red Blood Count 3.61 L Hemoglobin 10.0 L Hematocrit 30.9 L Mean Corpuscular Volume 85.6 Mean Corpuscular Hemoglobin 27.7 L Mean Corpuscular Hemoglobin Concent 32.4 Red Cell Distribution Width 13.3 Platelet Count 367 Mean Platelet Volume 9.5 Immature Granulocytes % 1.400 H Neutrophils % 55.1 Segmented Neutrophils % (Manual) 54 Lymphocytes % 13.5 L Lymphocytes % (Manual) 17 Reactive Lymphocytes % (Manual) 3 H Monocytes % 8.3 Monocytes % (Manual) 8 Eosinophils % 21.2 H Eosinophils % (Manual) 18 H Basophils % 0.5 Nucleated Red Blood Cells % 0.0 Immature Granulocytes # 0.150 H Neutrophils # 6.0 Lymphocytes (Manual) 1.8 Lymphocytes # 1.5 Reactive Lymphocytes # 0.3 H Monocytes # 0.9 Monocytes # (Manual) 0.8 Eosinophils # 2.3 H Basophils # 0.1 Nucleated Red Blood Cells # 0.0 Platelet Estimate NORMAL Polychromasia 3+ Anisocytosis 1+ Microcytosis 1+ Sodium Level 140 Potassium Level 3.7 Chloride Level 103 Carbon Dioxide Level 28 Anion Gap 9 Blood Urea Nitrogen 8 Creatinine 0.55 Est Glomerular Filtrat Rate mL/min > 60 Glucose Level 97 Calcium Level 8.2 L Magnesium Level 2.3 Total Bilirubin 0.1 L Direct Bilirubin 0.00 Indirect Bilirubin 0.1 Aspartate Amino Transf (AST/SGOT) 31 Alanine Aminotransferase (ALT/SGPT) 33 Alkaline Phosphatase 124 H Total Protein 6.4 Albumin 3.0 L Globulin 3.40 H Albumin/Globulin Ratio 0.88 Consultation Date/Type/Reason Admit Date/Time May 26, 2018 at 22:22 Initial Consult Date 05/27/18 Type of Consult Cardiology 24 HR Interval Summary Free Text/Dictation Fever to 101.3 F yesterday. No fevers today. Detailed Summary Additional Comments 14 point review of systems without changes. Exam/Review of Systems Vital Signs Vitals Vital Signs Date Temp Pulse Resp B/P (MAP) Pulse Ox O2 O2 Flow FiO2 Time Delivery Rate 06/02/18 71 16:14 06/02/18 98.0 20 127/80 98 Room Air 14:55 (96) Intake and Output 06/01/18 06/01/18 06/02/18 1515:00 23:00 07:00 IntakeIntake Total 1560 ml OutputOutput Total 100 ml BalanceBalance 1460 ml Exam Constitutional: alert, well developed Psych: no complaints, nl mood/affect Head: normocephalic, atraumatic Eyes: nl conjunctiva, nl lids ENMT: nl external ears & nose, nl lips & teeth Neck: supple, non-tender; No jvd Respiratory: clear to auscultation, normal air movement Cardiovascular: regular rate and rhythm Gastrointestinal: soft, non-tender Musculoskeletal: nl extremities to inspection Extremities: No cyanosis, No clubbing, No edema Neurological: nl mental status, nl speech Medications Medications Current Medications IV Flush (NS 3 ml) 3 ml PER PROTOCOL IV ; Start 05/27/18 at 02:30 Nitroglycerin (Nitroglycerin (Sl Tab) 0.4 Mg) 1 tab Q5M PRN SL ANGINA Last administered on 05/27/18at 03:10; Admin Dose 1 TAB; Start 05/27/18 at 02:55 Levofloxacin/ Dextrose 100 ml @ 100 mls/hr DAILY IVPB Last administered on 06/02/18at 08:53; Admin Dose 100 MLS/HR; Start 05/27/18 at 09:00 Acetaminophen (Tylenol Tab) 650 mg Q6H PRN PO MILD PAIN(1-3)OR ELEVATED TEMP Last administered on 06/01/18at 17:25; Admin Dose 650 MG; Start 05/27/18 at 16:00 Metronidazole 100 ml @ 100 mls/hr Q8 IVPB Last administered on 06/02/18at 14:35; Admin Dose 100 MLS/HR; Start 05/27/18 at 22:00 Hydromorphone HCl (Dilaudid) 0.4 mg Q4H PRN IV SEVERE PAIN LEVEL 7-10 Last administered on 05/30/18at 02:28; Admin Dose 0.4 MG; Start 05/27/18 at 17:00 Ondansetron HCl (Zofran Inj) 4 mg Q4 PRN IV NAUSEA AND/OR VOMITING Last administered on 06/01/18at 11:49; Admin Dose 4 MG; Start 05/27/18 at 17:30 Acetaminophen (Tylenol Supp) 650 mg Q4H PRN [place] MILD PAIN(1-3) OR TEMP>38C; Start 05/28/18 at 21:30 Potassium Chloride/Dextrose/ Sod Cl 1,000 ml @ 50 mls/hr Q20H IV Last administered on 06/01/18at 11:49; Admin Dose 50 MLS/HR; Start 05/29/18 at 10:30 Famotidine (Pepcid Iv) 20 mg DAILY IV Last administered on 06/02/18at 08:53; Admin Dose 20 MG; Start 05/30/18 at 09:00 Aspirin (Halfprin) 81 mg DAILY PO Last administered on 06/02/18at 08:53; Admin Dose 81 MG; Start 05/30/18 at 09:00 Acetaminophen/ Hydrocodone Bitart ([place] (10/325)) 1 tab Q4H PRN PO MODERATE PAIN LEVEL 4-6; Start 05/30/18 at 17:00 Enoxaparin Sodium (Lovenox) 40 mg DAILY SC Last administered on 06/02/18at 09:03; Admin Dose 40 MG; Start 05/31/18 at 09:00 Vancomycin HCl (Vanco Iv Per Pharmacy) VANCOMYCIN PER PHARMACY PER PROTOCOL XX ; Start 06/01/18 at 12:00 Vancomycin HCl 250 ml @ 125 mls/hr Q8H IVPB Last administered on 06/02/18at 11:27; Admin Dose 125 MLS/HR; Start 06/01/18 at 20:00 Miscellaneous Information (*Rx Drug Level Order Reminder*) VANCO TROUGH @ 1,900 ONCE ONCE XX ; Start 06/02/18 at 19:00; Stop 06/02/18 at 19:01 ABEBA CALIX MD Jun 02, 2018 17:39
--- NOTE | 2018-06-02 19:27 | NUR ---
VANCOMYCIN PER RX PROTOCOL Current ABXs: VANCOMYCIN, LEVAQUIN, METRONIDAZOLE Levels/Significant Labs: 06/02 VANCO TR = 9.2 Comments/Plan: CHANGE VANCO TO 1.25 GM IV Q8H. NEXT DOSE DUE NOW
[2018-06-02] MEDS: D5-NS + KCL 20 MEQ 1,000 ML IV SCH (21:24)
[2018-06-02] MEDS: VANCOMYCIN 1.25 GM in SOD CHLORIDE 0.9% 250 ML IVPB SCH (21:25)
[2018-06-03] VITALS (8 sets, daily range): BP systolic 104–128; BP diastolic 65–79; PULSE 54–75; RESP 17–18
[2018-06-03] MEDS: metroNIDAZOLE 500 MG/NS (PMX) 100 ML IVPB SCH ×2 (01:56→06:00)
[2018-06-03] MEDS: VANCOMYCIN 1.25 GM in SOD CHLORIDE 0.9% 250 ML IVPB SCH ×2 (05:09→11:59)
--- NOTE | 2018-06-03 07:42 | NUR ---
EOSS Pt a/o x4. Hourly rounding completed. Call light within reach. All needs met and attended too. IV antibiotics given. Will endorse continuity of care to day shift.
[2018-06-03] MEDS: ASPIRIN (EC) 81 MG TAB PO SCH (08:17)
[2018-06-03] MEDS: FAMOTIDINE 20 MG INJ IV SCH (08:17)
[2018-06-03] MEDS: ENOXAPARIN 40 MG/0.4 ML SYG SC SCH (08:33)
--- NOTE | 2018-06-03 10:02 | PN ---
Date/Time of Note Date/Time of Note DATE: 06/03/18 TIME: 09:47 Assessment/Plan Lines/Catheters IV Catheter Type (from [facility], [place]): Peripheral IV Galvez in Place (from Nrs): No Assessment/Plan Chief Complaint/Hosp Course 1. Abdominal pain with symptomatic cholelithiasis, and acute cholecystitis with significant leukocytosis. s/p IR cholecystostomy drain 05/29. WBC and Bands worsening but clinically improving. -Continue drain> ok for dc planning w drain from surgical standpoint w abx per ID, to follow in office in 1-2 weeks -ID consult noted and appreciated> -IVF 2. Leukocytosis, WBC improved with bandemia -As above 3. Chest pressure with abnormal reversible stress test -Cardiac optimization and eventual cath 4. Obesity: BMI: 31 -diet and exercise optimization -encourage weight loss 5. Eczema: -Medical management Thank you. Patient seen and examined in collaboration with Dr. Onesimo Fleming. Subjective 24 Hr Interval Summary Feels well. No abdominal pain. No fevers, chills, sob, congested cough, cp, palpitations, joseph, dizziness, n/v/d/dysuria. Exam/Review of Systems Vital Signs Vitals Vital Signs Date Temp Pulse Resp B/P (MAP) Pulse Ox O2 O2 Flow FiO2 Time Delivery Rate 06/03/18 75 08:28 06/03/18 98.4 18 104/65 95 07:56 (78) 06/02/18 Room Air 20:00 Intake and Output 06/02/18 06/02/18 06/03/18 1515:00 23:00 07:00 IntakeIntake Total 1550 ml 100 ml 550 ml OutputOutput Total 150 ml BalanceBalance 1400 ml 100 ml 550 ml Exam Free Text/Dictation Constitutional: alert, oriented, well developed Psych: nl mood/affect, anxiety Head: normocephalic, atraumatic Eyes: nl conjunctiva, EOMI, nl sclera ENMT: nl external ears & nose, nl lips & teeth, mucosa pink and moist Neck: supple, non-tender; No jvd Respiratory: normal air movement; No congested cough, No labored breathing Cardiovascular: regular rate and rhythm, nl pulses Gastrointestinal: soft, NT. Cholecystostomy drain. No distended Genitourinary - Female: nl external genitalia Musculoskeletal: nl extremities to inspection, nl gait and stance Extremities: normal pulses Neurological: nl mental status, nl speech, nl strength Skin: No rash or lesions Results Result Diagram: 06/03/18 0455 06/03/18 0455 ART CAMARGO NP Jun 03, 2018 09:57
[2018-06-03] MEDS: LEVOFLOXACIN 500MG/D5W (PMX) 100 ML IVPB SCH (10:16)
--- NOTE | 2018-06-03 14:28 | CONS ---
Date/Time of Note Date/Time of Note DATE: 06/03/18 TIME: 14:26 Assessment/Plan Assessment/Plan Hospital Course No acute changes patient is awake feels better looks comfortable WBC today 9.6 no shift no bands BUN 7 creatinine 0.46 Microbiology: Urine culture on admission grew Corynebacterium group JK, blood cultures negative, gallbladder drainage culture growing oxacillin sensitive staph aureus Antimicrobials: Vancomycin, levofloxacin, Flagyl Indwelling: Right-sided cholecystostomy tube Physical examination: Well-nourished well-developed middle-aged woman who is alert in no distress. Head atraumatic normocephalic sclera nonicteric. Neck is supple chest rise symmetrical breath sounds diminished bases. Heart: S1-S2 abdomen soft bowel sounds present extremities without cyanosis Assessment: 1. Resolving sepsis 2. Acute cholecystitis, status post IR guided cholecystostomy drain 05/29/18 3. Urinary tract infection 4. Obesity 5. Oral thrush 6. Allergy: Penicillin Plan: Patient doing better, we will discontinue Flagyl, continue on current antibiotics for now, Vanco to complete treatment for UTI, and anticipate discharge on oral levofloxacin once she is medically cleared to complete 2 weeks Result Diagram: 06/03/18 0455 06/03/18 0455 Results 24hrs Laboratory Tests Test 06/02/18 18:36 06/03/18 04:55 Vancomycin Level Trough 9.2 L White Blood Count 9.6 Red Blood Count 3.86 L Hemoglobin 10.5 L Hematocrit 32.5 L Mean Corpuscular Volume 84.2 Mean Corpuscular Hemoglobin 27.2 L Mean Corpuscular Hemoglobin Concent 32.3 Red Cell Distribution Width 13.1 Platelet Count 469 #H Mean Platelet Volume 9.0 Immature Granulocytes % 2.300 H Neutrophils % 45.4 Lymphocytes % 18.9 Monocytes % 7.1 Eosinophils % 25.7 H Basophils % 0.6 Nucleated Red Blood Cells % 0.0 Immature Granulocytes # 0.220 H Neutrophils # 4.4 Lymphocytes # 1.8 Monocytes # 0.7 Eosinophils # 2.5 H Basophils # 0.1 Nucleated Red Blood Cells # 0.0 Sodium Level 138 Potassium Level 3.7 Chloride Level 104 Carbon Dioxide Level 28 Anion Gap 6 Blood Urea Nitrogen 7 Creatinine 0.46 Est Glomerular Filtrat Rate mL/min > 60 Glucose Level 102 Calcium Level 8.4 Total Bilirubin 0.1 L Direct Bilirubin 0.00 Indirect Bilirubin 0.1 Aspartate Amino Transf (AST/SGOT) 48 H Alanine Aminotransferase (ALT/SGPT) 35 Alkaline Phosphatase 160 H Total Protein 6.3 Albumin 3.0 L Globulin 3.30 H Albumin/Globulin Ratio 0.90 Consultation Date/Type/Reason Admit Date/Time May 26, 2018 at 22:22 Initial Consult Date 05/27/18 Type of Consult ID Exam/Review of Systems Vital Signs Vitals Vital Signs Date Temp Pulse Resp B/P (MAP) Pulse Ox O2 O2 Flow FiO2 Time Delivery Rate 06/03/18 58 12:50 06/03/18 98.3 18 111/70 96 11:19 (84) 06/02/18 Room Air 20:00 Intake and Output 06/02/18 06/02/18 06/03/18 1515:00 23:00 07:00 IntakeIntake Total 1550 ml 100 ml 550 ml OutputOutput Total 150 ml BalanceBalance 1400 ml 100 ml 550 ml Medications Medications Current Medications IV Flush (NS 3 ml) 3 ml PER PROTOCOL IV ; Start 05/27/18 at 02:30 Nitroglycerin (Nitroglycerin (Sl Tab) 0.4 Mg) 1 tab Q5M PRN SL ANGINA Last administered on 05/27/18at 03:10; Admin Dose 1 TAB; Start 05/27/18 at 02:55 Levofloxacin/ Dextrose 100 ml @ 100 mls/hr DAILY IVPB Last administered on 06/03/18at 10:16; Admin Dose 100 MLS/HR; Start 05/27/18 at 09:00 Acetaminophen (Tylenol Tab) 650 mg Q6H PRN PO MILD PAIN(1-3)OR ELEVATED TEMP Last administered on 06/01/18at 17:25; Admin Dose 650 MG; Start 05/27/18 at 16:00 Metronidazole 100 ml @ 100 mls/hr Q8 IVPB Last administered on 06/03/18at 06:00; Admin Dose 100 MLS/HR; Start 05/27/18 at 22:00 Hydromorphone HCl (Dilaudid) 0.4 mg Q4H PRN IV SEVERE PAIN LEVEL 7-10 Last administered on 05/30/18at 02:28; Admin Dose 0.4 MG; Start 05/27/18 at 17:00 Ondansetron HCl (Zofran Inj) 4 mg Q4 PRN IV NAUSEA AND/OR VOMITING Last administered on 06/01/18at 11:49; Admin Dose 4 MG; Start 05/27/18 at 17:30 Acetaminophen (Tylenol Supp) 650 mg Q4H PRN [place] MILD PAIN(1-3) OR TEMP>38C; Start 05/28/18 at 21:30 Potassium Chloride/Dextrose/ Sod Cl 1,000 ml @ 50 mls/hr Q20H IV Last administered on 06/02/18at 21:24; Admin Dose 50 MLS/HR; Start 05/29/18 at 10:30 Famotidine (Pepcid Iv) 20 mg DAILY IV Last administered on 06/03/18at 08:17; Admin Dose 20 MG; Start 05/30/18 at 09:00 Aspirin (Halfprin) 81 mg DAILY PO Last administered on 06/03/18at 08:17; Admin Dose 81 MG; Start 05/30/18 at 09:00 Acetaminophen/ Hydrocodone Bitart ([place] (10/325)) 1 tab Q4H PRN PO MODERATE PAIN LEVEL 4-6; Start 05/30/18 at 17:00 Enoxaparin Sodium (Lovenox) 40 mg DAILY SC Last administered on 06/03/18at 08:33; Admin Dose 40 MG; Start 05/31/18 at 09:00 Vancomycin HCl (Vanco Iv Per Pharmacy) VANCOMYCIN PER PHARMACY PER PROTOCOL XX ; Start 06/01/18 at 12:00 Vancomycin HCl 1.25 gm/Sodium Chloride 250 ml @ 83.333 mls/ hr Q8H IVPB Last administered on 06/03/18at 11:59; Admin Dose 83.333 MLS/HR; Start 06/02/18 at 20:00 Miscellaneous Information (*Rx Drug Level Order Reminder*) VANCO TR AT 1,900 ONCE ONCE XX ; Start 06/03/18 at 19:00; Stop 06/03/18 at 19:01 RICKEY QUINTANA NP Jun 03, 2018 14:28
[2018-06-03] MEDS ORDERED: ASPI-1044 PO (14:29)
[2018-06-03] MEDS ORDERED: LEVO750T25 PO (14:29)
--- NOTE | 2018-06-03 14:36 | PDOCDIS ---
Discharge Instructions CONDITION [id number] Patient Condition: [id number] Stable HOME CARE INSTRUCTIONS: [id number] Special Diet: [id number] Low cholesterol diet. FOLLOW UP/APPOINTMENTS Follow-up Plan 1. Onesimo Fleming MD Specialty: General Surgery Office Address [address] [place] [address] Office 2. Neo Enriquez MD Specialty: Internal Medicine Office Address: [address] [place] [address] Office OTHER ORDERS: Other Orders: 1. Take a low-cholesterol diet as tolerated. 2. Complete the course of antibiotics. 3. Empty the drain as instructed. 4. Follow-up with Dr. Fleming in 1 week for removal of drain. Please call for appointment. 5. Please go and see your primary care physician in 2 weeks. Have your primary care physician arrange for outpatient cardiology follow-up. If you do not have a primary care physician, please call Dr. Neo Enriquez's office. 6. Please go to the nearest emergency room if you have any significant chest pain, persistent fevers, persistent nausea/vomiting, persistent diarrhea, or any other unusual signs/symptoms. 1. [place] arnold dieta baja en colesterol segn lo tolere. 2. Completar el curso de antibiticos. 3. Vace el desage segn las instrucciones. 4. Honorio un seguimiento con el Dr. Fleming en 1 semana para retirar el drenaje. Por favor llame para arnold fang. 5. Vaya a delonte a lepe mdico de atencin primaria en 2 semanas. Honorio que lepe mdico de atencin primaria acuerde el seguimiento de cardiologa ambulatoria. Si no tiene un mdico de atencin primaria, llame a la oficina del Dr. Neo Enriquez. 6. Vaya a la marina de emergencias ms cercana si tiene dolor de pecho importante, fiebre persistente, nuseas / vmitos persistentes, diarrea persistente o c ualquier otro signo / sntoma inusual. DALLAS BURNHAM NP 27, 2018 14:36
[2018-06-03] MEDS: D5-NS + KCL 20 MEQ 1,000 ML IV SCH (14:58)
--- NOTE | 2018-06-03 15:23 | DS ---
Date/Time of Note Date/Time of Note DATE: 06/03/18 TIME: 15:22 Discharge Summary Admission/Discharge Info Admit Date/Time May 26, 2018 at 22:22 Discharge Date/Time Discharge Diagnosis 1. Acute cholecystitis. Status post IR guided cholecystostomy drain on 05/09. 2. Chest pain with abnormal stress test. Predominantly reversible perfusion defect in the inferior wall as per stress test. 3. Corynebacterium jeikeium UTI. 4. Normocytic anemia. 5. Obesity. BMI 31 kg/m. Patient Condition: Stable Consults 1. Rafat Weiss MD, Cardiology. 2. Onesimo Fleming MD, General Surgery. 3. Aleksandar Traylor MD, Infectious Diseases. Procedures CT Guided Cholecystostomy Procedure 05/29/2018 IMPRESSION: Successful CT guided cholecystostomy tube placement procedure. No complications occurred. Lexiscan Myocardial Perfusion Study IMPRESSION: 1. The type and distribution of the scintigraphic abnormalities are most consistent with a small size predominantly reversible perfusion defect in the inferior wall. 2. No wall motion abnormalities. 3. The left ventricle ejection fraction at stress is 67%. 2D Echocardiogram Hx of Present Illness This is a 38-year-old female with no significant past medical history who came to the emergency room with chief complaint of right upper quadrant pain with gal lbladder ultrasound showing cholelithiasis and gallbladder sludge with underlying leukocytosis and febrile illness, who was admitted to inpatient setting for further treatment and evaluation. Hospital Course The patient was kept n.p.o. The patient was started on antibiotics. The patient was provided with adequate pain control and IV fluids. A general surgery consult was obtained. While the patient was being evaluated for surgical intervention, the patient started complaining of nonspecific chest pain. Therefore, a 2D echocardiogram was ordered. The patient's 2D echocardiogram showed preserved left ventricular ejection fraction but it showed basal to mid inferolateral and lateral wall hypokinesis. Therefore, cardiology consult was obtained. The patient underwent a nuclear medicine cardiac stress test on 05/28/2018 that showed scintigraphic abnormalities consistent with a small sized predominantly reversible perfusion defect in the inferior wall. Therefore, the patient was started on aspirin. Therefore, general surgery opted to do IR guided drainage of the gallbladder. The patient underwent a cholecystostomy by interventional radiology on 05/29/2018. The patient continued to have febrile illness. The patient's culture from the gallbladder fluid showed Staph aureus. Meanwhile the patient's urine culture showed Corynebacterium jeikeium with colony count of 70,000-80,000 CFU per mL. ID consult was obtained for expert opinion. The patient was maintained on vancomycin once the urine cultures were available. Upon discharge, the patient will be discharged on oral fluoroquinolones that was sensitive to staph aureus. The patient needs a left heart catheterization for evaluation of the reversible perfusion defect evident on the cardiac stress test. However, the patient's cholecystitis needs to be treated first before the patient can have a left heart catheterization done. The patient is obese with BMI more than 30 kg/m. The patient was advised on weight reduction. The patient's fasting lipid panel was satisfactory. The patient had a stable, but prolonged hospital course because of the complexity of the patient's clinical condition and the abnormal cardiac stress test that necessitated IR guided drainage of the gallbladder versus ch olecystectomy. The patient was cleared by consultants to be discharged home. Discharge Instructions 1. Take a low-cholesterol diet as tolerated. 2. Complete the course of antibiotics. 3. Empty the drain as instructed. 4. Follow-up with Dr. Fleming in 1 week for removal of drain. Please call for appointment. 5. Please go and see your primary care physician in 2 weeks. Have your primary care physician arrange for outpatient cardiology follow-up. If you do not have a primary care physician, please call Dr. Neo Enriquez's office. 6. Please go to the nearest emergency room if you have any significant chest pain, persistent fevers, persistent nausea/vomiting, persistent diarrhea, or any other unusual signs/symptoms. The patient verbalized understanding of her discharge instructions. At this time I would like to thank all the consultants for seeing the patient and providing clinical recommendations. The patient was seen in collaboration with Dr. Johnson. Home Meds Active Scripts Levofloxacin* (Levaquin*) 750 Mg Tablet, 750 MG PO DAILY for 7 Days, #7 TAB Prov:DALLAS BURNHAM NP 06/03/18 Aspirin Delayed Release (Aspirin Delayed Release) 81 Mg Tablet.dr 81 MG PO DAILY, #30 Prov:DALLAS BURNHAM NP 06/03/18 Discontinued Scripts Famotidine* (Pepcid*) 20 Mg Tablet, 20 MG PO DAILY for 30 Days, TAB Prov:SHAHAB ONEIL 03/13/18 Diphenhydramine Hcl* (Benadryl*) 25 Mg Cap, 25 MG PO Q6 PRN for ITCHING/RASH, #30 TAB Prov:SHAHAB ONEIL 03/13/18 Loratadine (Loratadine) 10 Mg Capsule, 10 MG PO DAILY, #30 CAP Prov:SHAHAB ONEIL F 03/13/18 Follow-up Plan 1. Onesimo Fleming MD Specialty: General Surgery Office Address [id number] [place] [address] Office 2. Neo Enriquez MD Specialty: Internal Medicine Office Address: [address] [place] [address] Office Primary Care Provider Care Physician No Primary Pending Labs Laboratory Tests Test 06/02/18 18:36 06/03/18 04:55 Vancomycin Level Trough 9.2 ug/ml (10.0-20.0) White Blood Count 9.6 10^3/ul (4.8-10.8) Red Blood Count 3.86 10^6/ul (4.20-5.40) Hemoglobin 10.5 g/dl (12.0-16.0) Hematocrit 32.5 % (37.0-47.0) Mean Corpuscular Volume 84.2 fl (82.0-101.0) Mean Corpuscular Hemoglobin 27.2 pg (29.0-33.0) Mean Corpuscular 32.3 g/dl (32.0-37.0) Hemoglobin Concent Red Cell Distribution Width 13.1 % (11.5-14.5) Platelet Count 469 10^3/UL (140-415) Mean Platelet Volume 9.0 fl (7.4-10.4) Immature Granulocytes % 2.300 % (0.001-0.429) Neutrophils % 45.4 % (39.0-77.0) Lymphocytes % 18.9 % (15.0-51.0) Monocytes % 7.1 % (0.0-11.0) Eosinophils % 25.7 % (0.0-7.0) Basophils % 0.6 % (0.0-2.0) Nucleated Red Blood Cells % 0.0 /100WBC (0.0-0.0) Immature Granulocytes # 0.220 10^3/ul (0.0-0.031) Neutrophils # 4.4 10^3/ul (1.6-7.5) Lymphocytes # 1.8 10^3/ul (0.8-2.9) Monocytes # 0.7 10^3/ul (0.3-0.9) Eosinophils # 2.5 10^3/ul (0.0-0.5) Basophils # 0.1 10^3/ul (0.0-0.1) Nucleated Red Blood Cells # 0.0 10^3/ul (0.0-0.0) Sodium Level 138 mmol/L (135-144) Potassium Level 3.7 mmol/L (3.5-5.1) Chloride Level 104 mmol/L (97-110) Carbon Dioxide Level 28 mmol/L (21-31) Anion Gap 6 (5-13) Blood Urea Nitrogen 7 mg/dl (7-20) Creatinine 0.46 mg/dl (0.44-1.00) Est Glomerular Filtrat > 60 mL/min (>60) Rate mL/min Glucose Level 102 mg/dl (70-220) Calcium Level 8.4 mg/dl (8.4-10.2) Phosphorus Level 4.2 mg/dl (2.5-4.9) Magnesium Level 2.3 mg/dl (1.7-2.5) Total Bilirubin 0.1 mg/dl (0.2-1.3) Direct Bilirubin 0.00 mg/dl (0.00-0.20) Indirect Bilirubin 0.1 mg/dl (0-1.1) Aspartate Amino 48 IU/L (15-46) Transf (AST/SGOT) Alanine 35 IU/L (13-69) Aminotransferase (ALT/SGPT) Alkaline Phosphatase 160 IU/L (42-121) Total Protein 6.3 g/dl (6.1-8.1) Albumin 3.0 g/dl (3.3-4.9) Globulin 3.30 g/dl (1.3-3.2) Albumin/Globulin Ratio 0.90 DALLAS BURNHAM NP Jun 03, 2018 15:23
--- NOTE | 2018-06-03 15:41 | CONS ---
Date/Time of Note Date/Time of Note DATE: 06/03/18 TIME: 15:40 Assessment/Plan Assessment/Plan Hospital Course Assessment: Probable coronary artery disease - small reversible perfusion inferior wall defect on Lexiscan SPECT, corresponding to the inferolateral wall motion abnormalities on echocardiogram, likely represents underlying right coronary artery disease; clinically stable Atypical chest pain - appears gastrointestinal due to acute cholecystitis Acute cholecystitis - status post cholecystostomy tube placement 05/29/2018 Recommendations: -continue aspirin 81mg daily -patient will eventually need cardiac catheterization as outpatient, once acute biliary issues have resolved Result Diagram: 06/03/18 0455 06/03/18 0455 Results 24hrs Laboratory Tests Test 06/02/18 18:36 06/03/18 04:55 Vancomycin Level Trough 9.2 L White Blood Count 9.6 Red Blood Count 3.86 L Hemoglobin 10.5 L Hematocrit 32.5 L Mean Corpuscular Volume 84.2 Mean Corpuscular Hemoglobin 27.2 L Mean Corpuscular Hemoglobin Concent 32.3 Red Cell Distribution Width 13.1 Platelet Count 469 #H Mean Platelet Volume 9.0 Immature Granulocytes % 2.300 H Neutrophils % 45.4 Lymphocytes % 18.9 Monocytes % 7.1 Eosinophils % 25.7 H Basophils % 0.6 Nucleated Red Blood Cells % 0.0 Immature Granulocytes # 0.220 H Neutrophils # 4.4 Lymphocytes # 1.8 Monocytes # 0.7 Eosinophils # 2.5 H Basophils # 0.1 Nucleated Red Blood Cells # 0.0 Sodium Level 138 Potassium Level 3.7 Chloride Level 104 Carbon Dioxide Level 28 Anion Gap 6 Blood Urea Nitrogen 7 Creatinine 0.46 Est Glomerular Filtrat Rate mL/min > 60 Glucose Level 102 Calcium Level 8.4 Phosphorus Level 4.2 Magnesium Level 2.3 Total Bilirubin 0.1 L Direct Bilirubin 0.00 Indirect Bilirubin 0.1 Aspartate Amino Transf (AST/SGOT) 48 H Alanine Aminotransferase (ALT/SGPT) 35 Alkaline Phosphatase 160 H Total Protein 6.3 Albumin 3.0 L Globulin 3.30 H Albumin/Globulin Ratio 0.90 Consultation Date/Type/Reason Admit Date/Time May 26, 2018 at 22:22 Initial Consult Date 05/27/18 Type of Consult Cardiology 24 HR Interval Summary Free Text/Dictation Afebrile. WBC down to 9.6. No chest pain. Detailed Summary Additional Comments 14 point review of systems without changes. Exam/Review of Systems Vital Signs Vitals Vital Signs Date Temp Pulse Resp B/P (MAP) Pulse Ox O2 O2 Flow FiO2 Time Delivery Rate 06/03/18 58 12:50 06/03/18 98.3 18 111/70 96 11:19 (84) 06/02/18 Room Air 20:00 Intake and Output 06/02/18 06/02/18 06/03/18 1515:00 23:00 07:00 IntakeIntake Total 1550 ml 100 ml 550 ml OutputOutput Total 150 ml BalanceBalance 1400 ml 100 ml 550 ml Exam Constitutional: alert, well developed Psych: no complaints, nl mood/affect Head: normocephalic, atraumatic Eyes: nl conjunctiva, nl lids ENMT: nl external ears & nose, nl lips & teeth Neck: supple, non-tender; No jvd Respiratory: clear to auscultation, normal air movement Cardiovascular: regular rate and rhythm Gastrointestinal: soft, non-tender Musculoskeletal: nl extremities to inspection Extremities: No cyanosis, No clubbing, No edema Neurological: nl mental status, nl speech Medications Medications Current Medications IV Flush (NS 3 ml) 3 ml PER PROTOCOL IV ; Start 05/27/18 at 02:30 Nitroglycerin (Nitroglycerin (Sl Tab) 0.4 Mg) 1 tab Q5M PRN SL ANGINA Last administered on 05/27/18at 03:10; Admin Dose 1 TAB; Start 05/27/18 at 02:55 Acetaminophen (Tylenol Tab) 650 mg Q6H PRN PO MILD PAIN(1-3)OR ELEVATED TEMP Last administered on 06/01/18at 17:25; Admin Dose 650 MG; Start 05/27/18 at 16:00 Hydromorphone HCl (Dilaudid) 0.4 mg Q4H PRN IV SEVERE PAIN LEVEL 7-10 Last administered on 05/30/18at 02:28; Admin Dose 0.4 MG; Start 05/27/18 at 17:00 Ondansetron HCl (Zofran Inj) 4 mg Q4 PRN IV NAUSEA AND/OR VOMITING Last administered on 06/01/18at 11:49; Admin Dose 4 MG; Start 05/27/18 at 17:30 Acetaminophen (Tylenol Supp) 650 mg Q4H PRN ME MILD PAIN(1-3) OR TEMP>38C; Start 05/28/18 at 21:30 Potassium Chloride/Dextrose/ Sod Cl 1,000 ml @ 50 mls/hr Q20H IV Last administered on 06/02/18at 21:24; Admin Dose 50 MLS/HR; Start 05/29/18 at 10:30 Famotidine (Pepcid Iv) 20 mg DAILY IV Last administered on 06/03/18at 08:17; Admin Dose 20 MG; Start 05/30/18 at 09:00 Aspirin (Halfprin) 81 mg DAILY PO Last administered on 06/03/18at 08:17; Admin Dose 81 MG; Start 05/30/18 at 09:00 Acetaminophen/ Hydrocodone Bitart ([place] (10325)) 1 tab Q4H PRN PO MODERATE PAIN LEVEL 4-6; Start 05/30/18 at 17:00 Enoxaparin Sodium (Lovenox) 40 mg DAILY SC Last administered on 06/03/18at 08:33; Admin Dose 40 MG; Start 05/31/18 at 09:00 Vancomycin HCl (Vanco Iv Per Pharmacy) VANCOMYCIN PER PHARMACY PER PROTOCOL XX ; Start 06/01/18 at 12:00 Vancomycin HCl 1.25 gm/Sodium Chloride 250 ml @ 83.333 mls/ hr Q8H IVPB Last administered on 06/03/18at 11:59; Admin Dose 83.333 MLS/HR; Start 06/02/18 at 20:00 Miscellaneous Information (*Rx Drug Level Order Reminder*) VANCO TR AT 1,900 ONCE ONCE XX ; Start 06/03/18 at 19:00; Stop 06/03/18 at 19:01 Levofloxacin (Levaquin) 500 mg DAILY@06 PO ; Start 06/04/18 at 06:00 ABEBA CALIX MD Jun 03, 2018 15:41
--- NOTE | 2018-06-03 16:42 | RADRPT ---
Vent Rate: 62 bpm RR Interval: 0 msec AR Interval: 130 msec QRS Duration: 88 msec QT Interval: 434 msec QTC Interval: 440 msec P-R-T [place]: 61 - 39 - 29 degrees Normal sinus rhythm Normal ECG Electronically Signed By: Silviano Burk [id number]
--- NOTE | 2018-06-03 17:30 | NUR ---
DISCHARGE TO HOME PATIENT IS DISCHARGED TO HOME IN STABLE CONDITION. VS WNL. NO SOB NOTED. DENIES PAIN AND DISCOMFORT. INSTRUCTED THE PATIENT TO SEE ASSIGNED MD'S WITHIN A WEEK. PATIENT WAS ALSO INSTRUCTED THAT IF SOB OR CHEST PAIN OCCURS, SHE HAS TO CALL 911 OR GO TO THE NEAREST ER. PATIENT WAS EDUCATED REGARDING NEW MEDS; ITS BENEFITS AND SIDE EFFECTS, VERBALIZED UNDERSTANDING. EDUCATED THE PATIENT REGARDING THE CARE AND EMPTYING OF THE ACCORDION, DEMONSTRATED THE CARE AND EMPTYING TECHNIQUE AND THE FREQUENCY OF EMPTYING, VERBALIZED UNDERSTANDING. PATIENT WAS ACCOMPANIED BY A FAMILY MEMBER, VIA WHEELCHAIR WITH A VOLUNTEER.
[2018-06-04] MEDS ORDERED: LEVOFLOXACIN 500 MG TAB PO SCH (06:00)
--- NOTE | 2018-06-04 12:10 | RADRPT ---
Vent Rate: 81 bpm RR Interval: 0 msec [place] Interval: 126 msec QRS Duration: 90 msec QT Interval: 392 msec QTC Interval: 455 msec P-R-T [place]: 40 - 51 - 26 degrees Normal sinus rhythm Nonspecific T wave abnormality Abnormal ECG Electronically Signed By: Parmjit Garcia [id number]
== END 2018-06-03 17:26 | disposition home or self-care (01) | DRG 445 ==
LOC: E/R 16:48 → MS1 22:22 → TEL 05-27 18:40 → 6WM 05-27 18:41
PROVIDERS: ADMIT Internal Medicine; ATTEND Internal Medicine
PROC: CF1C1ZZ Planar Nuclear Medicine Imaging of Hepatobiliary System, All using Technetium 99m (Tc-99m) (ICD-10-PCS; 2018-05-27)
PROC: C22G1ZZ Tomographic (Tomo) Nuclear Medicine Imaging of Myocardium using Technetium 99m (Tc-99m) (ICD-10-PCS; 2018-05-27)
PROC: 4A02XM4 Measurement of Cardiac Total Activity, External Approach (ICD-10-PCS; 2018-05-27)
PROC: 3E033HZ Introduction of Radioactive Substance into Peripheral Vein, Percutaneous Approach (ICD-10-PCS; 2018-05-27)
PROC: 0F9430Z Drainage of Gallbladder with Drainage Device, Percutaneous Approach (ICD-10-PCS; principal; 2018-05-29)
DX: K80.00 Calculus of gallbladder with acute cholecystitis without obstruction (principal); N39.0 Urinary tract infection, site not specified; B37.0 Candidal stomatitis; E66.9 Obesity, unspecified; Z68.31 Body mass index [BMI] 31.0-31.9, adult; L30.9 Dermatitis, unspecified; R07.89 Other chest pain; D64.9 Anemia, unspecified; B96.89 Other specified bacterial agents as the cause of diseases classified elsewhere; I25.10 Atherosclerotic heart disease of native coronary artery without angina pectoris
CPT/HCPCS: 36415; 71045; 74150; 76705; 77012; 78226; 78452; 80053; 80061; 80202; 81001; 81025; 82550; 82553; 83605; 83690; 83735; 84100; 84439; 84443; 84480; 84484; 85025; 85610; 85730; 87040; 87070; 87086; 87102; 87116; 93005; 93017; 93306; 96374; 96375; A9500; A9505; A9537; C1729; J1170; J1650; J1885; J1956; J2250; J2270; J2405; J2785; J3010; J3370; J3480; J7030; J7042; J7050

== ENCOUNTER 2018-08-01 10:55 | Inpatient (IN) | payer MEDICAID ==
[~2018-08-01] VITALS: Ht 162.6 cm; Wt 74.2 kg
[~2018-08-01 10:55] MED LIST changes: -ACET500C5 PO; +ASPI-1044 PO; -BEN25 PO; -CEPH-443 PO; -EPIN0.3P4 INJ; -FAMO-96 PO; -HC1C30 TOP; +LEVO750T25 PO; -LORA10CA9 PO; -MED4DP PO; -NAPR-985 PO; -ONDA4TAB14 PO; -PRED20TA PO; -TRAM50TA2 PO; -TRIA15CR55 TOP; -TRIA15OI9 TOP
--- NOTE | 2018-08-01 13:26 | ERD ---
ER Documentation Chief Complaint Chief Complaint fever x 3 days HPI 38-year-old female with history of cholecystitis presents with 3-day history of fever as well as chest pain on the right side. Patient states that she had cholecystitis a couple months ago and needed to have a drain put into the gallbladder. Her surgeon told her that if she ever had a fever she should come back to the ER which she did today. Also states she is been having hematuria for the past few days as well as intermittent headache. Denies worse headache of life, nausea, vomiting, diarrhea, palpitations, flank pain, back pain, dyspnea, angina, dysuria, numbness, tingling, or other focal deficits. ROS All systems reviewed and are negative except as per history of present illness. Medications Home Meds Active Scripts Levofloxacin* (Levaquin*) 750 Mg Tablet, 750 MG PO DAILY for 7 Days, #7 TAB Prov:DALLAS BURNHAM NP 06/03/18 Aspirin Delayed Release (Aspirin Delayed Release) 81 Mg Tablet.dr, 81 MG PO DAILY, #30 Prov:DALLAS BURNHAM NP 06/03/18 Allergies Allergies: Coded Allergies: shrimp (Verified Allergy, Intermediate, eczema, 05/27/18) and seafood soap (Verified Allergy, Intermediate, eczema, 05/27/18) toxic cleaning materials Penicillins (Verified Allergy, Unknown, 05/26/18) PMhx/Soc History of Surgery: No Anesthesia Reaction: No Hx Neurological Disorder: No Hx Respiratory Disorders: No Hx Cardiac Disorders: No Hx Psychiatric Problems: No Hx Miscellaneous Medical Probl: No Hx Alcohol Use: No Hx Substance Use: No Hx Tobacco Use: No Smoking Status: Never smoker FmHx Family History: No diabetes, No coronary disease, No other Physical Exam Vitals Vital Signs Date Temp Pulse Resp B/P (MAP) Pulse Ox O2 O2 Flow FiO2 Time Delivery Rate 08/01/18 86 22 101/74 100 Room Air 20:50 (83) 08/01/18 98.5 70 20 110/76 99 Room Air 19:50 (87) 08/01/18 98.8 71 18 110/56 98 Room Air 17:01 (74) 08/01/18 102.8 13:26 08/01/18 102.8 109 19 138/78 97 10:58 (98) Physical Exam General: Well developed, well nourished. No acute distress. Head: Atraumatic. No sinus tenderness to palpation. Eyes: PERRLA. EOM's intact. No icterus, lesions, injection, or edema. Ears: Auricles nontender, with no erythema, lesions, or masses bilaterally. TMs pearly feliz with + cone of light and no bulging or fluid lines bilaterally. Auditory canal patent with no discharge or impaction bilaterally. Landmarks appreciated bilaterally. No hematotympanum. Neck: No lymphadenopathy noted. Tracheal midline, no goiter or nodules noted. No JVD. Heart: RR w/o murmur, rubs, or gallops. Lungs: Clear to auscultation bilaterally w/o wheezes, crackles, rhonchi. Symmetric rise and fall. Equal breath sounds. Abdomen: Positive Kohler's. Otherwise, soft, nontender, with no rigidity or guarding noted. No masses, lesions, or ecchymoses. Normoactive bowel sounds. No McBurney's point tenderness. Patient ambulatory. No tenderness to palpation in splenic area or splenomegaly. No CVA tenderness. Extremities: 5/5 strength and full ROM of upper and lower extremeties bilat erally. Distal sensation and pulses intact. Normal cap refill. Skin: No rash or other lesions noted. Color normal for ethnicity. Neuro: CN II through XII intact. Rapid alternating movement intact. No cerebellar or gait deficits. Strength and sensation intact. Alert and oriented x3. Psych: Normal mood and affect. Result Diagram: 08/01/18 1205 08/01/18 1205 Results 24 hrs Laboratory Tests Test 08/01/18 12:05 08/01/18 12:18 08/01/18 18:05 White Blood Count 15.8 10^3/ul Red Blood Count 4.16 10^6/ul Hemoglobin 11.3 g/dl Hematocrit 35.3 % Mean Corpuscular Volume 84.9 fl Mean Corpuscular Hemoglobin 27.2 pg Mean Corpuscular 32.0 g/dl Hemoglobin Concent Red Cell Distribution Width 13.3 % Platelet Count 370 10^3/UL Mean Platelet Volume 9.5 fl Immature Granulocytes % 0.500 % Neutrophils % 78.8 % Lymphocytes % 9.2 % Monocytes % 8.0 % Eosinophils % 3.2 % Basophils % 0.3 % Nucleated Red Blood Cells % 0.0 /100WBC Immature Granulocytes # 0.080 10^3/ul Neutrophils # 12.5 10^3/ul Lymphocytes # 1.5 10^3/ul Monocytes # 1.3 10^3/ul Eosinophils # 0.5 10^3/ul Basophils # 0.1 10^3/ul Nucleated Red Blood Cells # 0.0 10^3/ul Urine Color YELLOW Urine Clarity CLOUDY Urine pH 6.0 Urine Specific [place] 1.012 Urine Ketones TRACE mg/dL Urine Nitrite NEGATIVE mg/dL Urine Bilirubin NEGATIVE mg/dL Urine Urobilinogen 1+ mg/dL Urine Leukocyte Esterase 1+ [place]/ul Urine Microscopic RBC 16 /HPF Urine Microscopic WBC 34 /HPF Urine Squamous Epithelial Cells MODERATE /HPF Urine Bacteria FEW /HPF Urine Hemoglobin 3+ mg/dL Urine Glucose NEGATIVE mg/dL Urine Total Protein NEGATIVE mg/dl Sodium Level 136 mmol/L Potassium Level 3.7 mmol/L Chloride Level 99 mmol/L Carbon Dioxide Level 25 mmol/L Anion Gap 12 Blood Urea Nitrogen 8 mg/dl Creatinine 0.53 mg/dl Est Glomerular Filtrat > 60 mL/min Rate mL/min Glucose Level 104 mg/dl Calcium Level 9.5 mg/dl Total Bilirubin 0.4 mg/dl Direct Bilirubin 0.00 mg/dl Indirect Bilirubin 0.4 mg/dl Aspartate Amino 92 IU/L Transf (AST/SGOT) Alanine 155 IU/L Aminotransferase (ALT/SGPT) Alkaline Phosphatase 285 IU/L Total Protein 9.0 g/dl Albumin 4.4 g/dl Globulin 4.60 g/dl Albumin/Globulin Ratio 0.95 POC Beta HCG, Qualitative NEGATIVE Troponin I < 0.012 ng/ml Current Medications Medications Dose Sig/Leydi Start Time Status Last (Trade) Ordered Route PRN Stop Time Admin Dose Reason Admin Ibuprofen 400 mg ONCE ONCE 08/01/18 DC 08/01/18 (Motrin) PO 13:30 13:26 08/01/18 13:31 Iohexol 150 ml STK-MED 08/01/18 DC 08/01/18 (Omnipaque ONCE .ROUTE 14:55 15:35 300mg/ ml) 08/01/18 14:56 Ondansetron 4 mg BRIDGE ORDER 08/01/18 HCl (Zofran PRN IV 18:00 Inj) NAUSEA/VOMITI 08/02/18 17:59 NG 650 mg ER BRIDGE 08/01/18 Acetaminophen PRN PO 18:00 (Tylenol .MILD PAIN 08/02/18 17:59 Tab) 1-3 OR TEMP IV Flush 3 ml PER 08/01/18 (NS 3 ml) PROTOCOL IV 19:30 Ondansetron 4 mg Q6H PRN 08/01/18 HCl (Zofran IV 19:30 Inj) NAUSEA/VOMITI NG 650 mg Q6H PRN 08/01/18 Acetaminophen PO .PAIN 1-3 19:30 (Tylenol OR TEMP Tab) 1 tab Q6H PRN 08/01/18 Acetaminophen PO .MOD PAIN 19:30 / 4-6 Hydrocodone Bitart ([place] (5/325)) 40 mg DAILY@06 08/02/18 Pantoprazole IV 06:00 (Protonix Iv) 150 ml @ Q24H IVPB 08/01/18 08/01/18 Levofloxacin/ 100 mls/hr 19:30 19:55 Dextrose 500 mg Q8 IV* 08/01/18 DC Metronidazole 22:00 (Flagyl Iv 08/01/18 22:00 (Ped)) 100 ml @ Q8 IVPB 08/01/18 Metronidazole 100 mls/hr 22:00 Procedures/MDM EKG: Rate/Rhythm: Sinus tachycardia with normal rhythm QRS, ST, T-waves: No changes consistent w/ acute ischemia Impression: No evidence of ischemia or arrhythmia IAGNOSTIC IMAGING REPORT Patient: CHEYENNE CEBALLOS : 1980 Age: 38 Sex: F MR #: [id number] DOS: 08/01/18 1316 Ordering MD: NICK RIVERA Location: [facility], [facility] Room/Bed: PROCEDURE: CT abdomen and pelvis with contrast. CLINICAL INDICATION: Right upper quadrant pain. Fever. Cholecystitis. TECHNIQUE: CT scan of the abdomen and pelvis without oral contrast was performed and is reconstructed at 2.5 mm contiguous axial intervals from the dome of the diaphragm to the inferior pubic rami.. The patient was scanned with intravenous contrast. Sagittal and coronal reformatted images were obtained from the axial source images. The calculated radiation dose measures 782 mGy centimeters. The CTDI measures 12.6 mGy. Individualized dose optimization technique was used for the performance of this exam. This included 1. Automated exposure control. 2. Adjustment of the mA and / or kV according to the patient's size. 3. Use of iterative reconstructed technique. COMPARISON: Abdominal ultrasound earlier same date. CT abdomen May 29, 2018. FINDINGS: The lung bases are clear of any infiltrate or nodule. There is atelectasis at the right lung base. No effusion is seen. The liver is of normal size, contour and attenuation with no mass or ductal dilatation. Gallbladder is mildly distended. No calcified stones are seen. There is diffuse wall thickening with multiple loculated pericholecystic fluid co llections in within the surrounding liver. These are highly suspicious for multiple abscesses. No common bile duct stone is seen. No splenic, adrenal or pancreatic abnormalities present. Kidneys enhance symmetrically and are of normal size and contour. No hydronephrosis, calculus or masses seen. Ureters are of normal course and caliber with no stone. No bladder mass or stone is present. There is an IUD within the endometrial canal. There is no aneurysm. No adenopathy is present. No bowel mass or obstruction is present. The appendix is normal. No phlegmon, ascites or pneumoperitoneum is visualized. The osseous structures are intact. IMPRESSION: Distended inflamed gallbladder with multiple loculated pericholecystic and surrounding intrahepatic abscesses. .Rios Cummins MD, MD Date Time Electronically viewed and signed by .Rios Cummins MD, on 08/01/2018 15:40 .A/ CC: NICK RIVERA [id number] DIAGNOSTIC IMAGING REPORT Patient: CHEYENNE CEBALLOS : 1980 Age: 38 Sex: F MR #: [id number] DOS: 08/01/18 1204 Ordering MD: NICK RIVERA Location: [facility], [facility] Room/Bed: AMENDMENT: 08/01/2018 3:47:38 PM Ramirez Hand M.d Compared to the CT scan performed on the same day, there are ill-defined fluid collections adjacent to the gallbladder and within the liver, as described in the CT. PROCEDURE: US Abdomen. CLINICAL INDICATION: abdominal pain TECHNIQUE: Multiple real-time images were acquired of the patient's right upper quadrant abdomen and retroperitoneum utilizing a high resolution transducer. COMPARISON: 05/29/2018, 05/26/2018 FINDINGS: The liver demonstrates normal echogenicity. The liver is enlarged in size and no focal solid lesions are seen. The liver measures 20.2 cm in length. The portal vein is patent with normal direction of flow. No intrahepatic biliary dilatation is seen. There is a large 2.7 cm calcified stone within the gallbladder. There is no pericholecystic fluid or gallbladder wall thickening. The common bile duct measures 3.4 mm in maximal dimension. The visualized portions of the pancreas are unremarkable. The tail of the pancreas is not seen. No free fluid is identified. The right kidney is normal in size, and demonstrate normal echogenicity and cortical thickness. The right kidney measures 10.8 cm in long dimension. There is no evidence of hydronephrosis. There are no kidney stones. RPTAT: AA IMPRESSION: Large calcified stone within the gallbladder. No evidence of gallbladder wall thickening or pericholecystic fluid. Mild hepatomegaly. .Ramirez Hand MD, MD Date Time Electronically viewed and signed by .Ramirez Hand MD, MD on 08/01/2018 15:47 .S/ CC: NICK RIVERA [phone] 38-year-old female with history of cholecystitis presents with 3-day history of fever as well as chest pain on the right side. Patient states that she had cholecystitis a couple months ago and needed to have a drain put into the g allbladder. Her surgeon told her that if she ever had a fever she should come back to the ER which she did today. Also states she has been having hematuria for the past few days as well as intermittent headache. Denies worse headache of life, nausea, vomiting, diarrhea, palpitations, dyspnea, angina, dysuria, numbness, tingling, or other focal deficits. Given patient's complaint of chest pain EKG was perfgormed and results within normal limits. There is positive Kohler's on exam in addition to patient's history of cholecystitis ultrasound was ordered and results within normal limits. However patient showed a white count on CBC, and given his patient's history, decision was made to order CT with contrast. This test was approved by Dr. Barber. CT with contrast showed inflamed gallbladder with associated abscesses. I discussed the case with Dr. Ybarra and decision was made to admit patient. Departure Diagnosis: Primary Impression: Cholecystitis Condition: Critical NICK RIVERA Aug 01, 2018 13:26
[2018-08-01] MEDS ORDERED: IBUPROFEN 200 MG TAB PO ONE (13:30)
[2018-08-01] MEDS ORDERED: IOHEXOL 300MG/ML 150 ML BTL ONE (14:55)
[2018-08-01] MEDS ORDERED: ONDANSETRON 4 MG INJ IV PRN (18:00)
[2018-08-01] MEDS ORDERED: ACETAMINOPHEN 325 MG TAB PO PRN (18:00)
[2018-08-01] MEDS ORDERED: NACL 0.9% 3 ML SYG IV SCH (19:30)
[2018-08-01] MEDS ORDERED: LEVOFLOXACIN 750MG/D5W (PMX) 150 ML IVPB SCH (19:30)
--- NOTE | 2018-08-01 19:48 | HP ---
Date/Time of Note Date/Time of Note DATE: 08/01/18 TIME: 19:24 Assessment/Plan VTE Prophylaxis Pharmacological prophylaxis: NA/contraindicated Pharm contraindication: surgical contra Lines/Catheters IV Catheter Type (from Nrsg): Saline Lock Assessment/Plan Assessment/Plan 38 yo woman history of ischemic stress test and cholecystitis s/p drain who presents with fever. #Fever #Sepsis - Suspect source is pericholecystic fluid - Will also send UA and culture, blood cultures - Will start IV levofloxacin and metronidazole (PCN allergy) - IV fluids #Pericholecystic fluid with small hepatic abscesses - Per discussion with Dr. Hoover, this is too complex for general surgery. - Will discuss with IR in AM if this can be drained percutaneously again. - If not, may need transfer to higher level of care for hepatobiliary surgery. #Chest pain - Ischemic stress test in May 2018, had planned for outpatient cardiac cath - EKG reviewed in ED, negative for acute ischemia - Will check troponin - Consult Dr. Weiss. #Headache - Sudden onset severe headache. May be related to sepsis. Will check head CT just in case. DVT: SCDs GI: None Result Diagram: 08/01/18 1205 08/01/18 1205 HPI/ROS Admit Date/Time Admit Date/Time Aug 01, 2018 Hx of Present Illness Ms. Acosta is an unfortunate 38 yo woman with no major PMH who presents with abdominal pain and fever. She was recently hospitalized at [facility] 05/26-06/03 for acute cholecystitis; but she also had chest pain and was found to have inferior ischemia on cardiac stress test. She got a percutaneous cholecystostomy tube with plan for outpatient cardiac cath. After discharge, she had the cho lecystostomy drain removed Jun 09. She reports she continued to have intermittent aching RUQ pain as well as occasional pressure-like chest pain. 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 About three days ago she developed a severe diffuse headache which has inter mittently recurred over the past few days. Last night she had high subjective fever at home, so returned to the ED. She continues to have pressure-like chest pain at rest as well as RUQ aching pain. In the ED she was febrile to 102.8, tachy to 109, BP 138/78, R 18. CT showed a large fluid-filled collection around the gallbladder as well as small hepatic abscesses. ROS She denies chills, night sweats, vision changes, sore throat, dysphagia, nausea, vomiting, anorexia, melena, constipation, diarrhea. PMH/Family/Social Past Medical History Eczema x2 years in addition to HPI Medications Current Medications Ondansetron HCl (Zofran Inj) 4 mg BRIDGE ORDER PRN IV NAUSEA/VOMITING; Start 08/01/18 at 18:00; Stop 08/02/18 at 17:59 Acetaminophen (Tylenol Tab) 650 mg ER BRIDGE PRN PO .MILD PAIN 1-3 OR TEMP; Start 08/01/18 at 18:00; Stop 08/02/18 at 17:59 IV Flush (NS 3 ml) 3 ml PER PROTOCOL IV ; Start 08/01/18 at 19:30; Status UNV Ondansetron HCl (Zofran Inj) 4 mg Q6H PRN IV NAUSEA/VOMITING; Start 08/01/18 at 19:30; Status UNV Acetaminophen (Tylenol Tab) 650 mg Q6H PRN PO .PAIN 1-3 OR TEMP; Start 08/01/18 at 19:30; Status UNV Acetaminophen/ Hydrocodone Bitart ([place] (5/325)) 1 tab Q6H PRN PO .MOD PAIN 4- 6; Start 08/01/18 at 19:30; Status UNV Pantoprazole (Protonix Iv) 40 mg DAILY@06 IV ; Start 08/02/18 at 06:00; Status UNV Coded Allergies: shrimp (Verified Allergy, Intermediate, eczema, 05/27/18) and seafood soap (Verified Allergy, Intermediate, eczema, 05/27/18) toxic cleaning materials Penicillins (Verified Allergy, Unknown, 05/26/18) Past Surgical History Cholecystostomy tube 05/2018 Social History Works as a cook Alcohol Use: none Smoking Status: Never smoker Drug Use: none Exam/Review of Systems Vital Signs Vitals Vital Signs Date Temp Pulse Resp B/P (MAP) Pulse Ox O2 O2 Flow FiO2 Time Delivery Rate 08/01/18 98.8 71 18 110/56 98 Room Air 17:01 (74) Exam Exam Gen: Overweight woman lying in gurney in no acute distress Eyes: PERRL, no icterus HEENT: Clear oropharynx, moist mucous membranes Neck: No lymphadenopathy Card: Regular rate and rhythm, no murmurs Pulm: Clear to auscultation bilaterally Abd: RUQ well-healed cholecystostomy tube site. Nontender throughout, negative yen's sign. No guarding, no hepatosplenomegaly. Ext: No cyanosis/clubbing/edema Skin: dry, cracked skin on arms. JOHN VELOZ MD Aug 01, 2018 19:34
[2018-08-01 21:00] VITALS: BP 111/67; PULSE 78; RESP 18
[2018-08-01] MEDS: Metronidazole 500 MG in NS 100 ML IVPB SCH (21:34)
[2018-08-01] MEDS: ONDANSETRON 4 MG INJ IV PRN (21:34)
[2018-08-01] MEDS ORDERED: metroNIDAZOLE (5 MG/ML) IV SYG IV* SCH (22:00)
--- NOTE | 2018-08-01 22:09 | CONS ---
Assessment/Plan Assessment/Plan Assessment/Plan (Daily) Recurrent gallbladder/hepatic abscess Recommend IR drainage as patient is too high risk for general anesthesia. She was hospitalized a few months ago and failed a stress test. If IR is unable to place drain, recommend transfer to higher level of care for hepatobiliary surgeon Although patient has a white count of 16, her abdomen is quite benign. Would continue to treat conservatively due to significant coronary artery disease Consultation Date/Type/Reason Admit Date/Time Aug 01, 2018 Date/Time of Note DATE: 08/01/18 TIME: 22:07 Hx of Present Illness The patient is a 38-year-old female who is status post a hospitalization with percutaneous cholecystostomy back in May. She was seen by Dr. Fleming a while ago and her drain was removed. However, she states that for the past 3 days she has had fevers. She denies abdominal pain. She denies nausea or emesis. Notified by her prior surgeon that if she ever expresses a fever to return to the ER. Therefore, with her intermittent fevers for the last 3 days she presented to the ER. Past Medical History Medical History: other (Coronary artery disease) Home Meds Active Scripts Levofloxacin* (Levaquin*) 750 Mg Tablet, 750 MG PO DAILY for 7 Days, #7 TAB Prov:DALLAS BURNHAM [employer]PERVIS[employer] 06/03/18 Aspirin Delayed Release (Aspirin Delayed Release) 81 Mg Tablet.dr, 81 MG PO DAILY, #30 Prov:DALLAS BURNHAM [employer] SUPER[employer]OR 06/03/18 Medications Current Medications Ondansetron HCl (Zofran Inj) 4 mg BRIDGE ORDER PRN IV NAUSEA/VOMITING; Start 08/01/18 at 18:00; Stop 08/02/18 at 17:59 Acetaminophen (Tylenol Tab) 650 mg ER BRIDGE PRN PO .MILD PAIN 1-3 OR TEMP; Start 08/01/18 at 18:00; Stop 08/02/18 at 17:59 IV Flush (NS 3 ml) 3 ml PER PROTOCOL IV ; Start 08/01/18 at 19:30 Ondansetron HCl (Zofran Inj) 4 mg Q6H PRN IV NAUSEA/VOMITING Last administered on 08/01/18at 21:34; Admin Dose 4 MG; Start 08/01/18 at 19:30 Acetaminophen (Tylenol Tab) 650 mg Q6H PRN PO .PAIN 1-3 OR TEMP; Start 08/01/18 at 19:30 Acetaminophen/ Hydrocodone Bitart ([place] (5/325)) 1 tab Q6H PRN PO .MOD PAIN 4- 6; Start 08/01/18 at 19:30 Pantoprazole (Protonix Iv) 40 mg DAILY@06 IV ; Start 08/02/18 at 06:00 Levofloxacin/ Dextrose 150 ml @ 100 mls/hr Q24H IVPB Last administered on 08/01/18at 19:55; Admin Dose 100 MLS/HR; Start 08/01/18 at 19:30 Metronidazole 100 ml @ 100 mls/hr Q8 IVPB Last administered on 08/01/18at 21:34; Admin Dose 100 MLS/HR; Start 08/01/18 at 22:00 Allergies: Coded Allergies: shrimp (Verified Allergy, Intermediate, eczema, 05/27/18) and seafood soap (Verified Allergy, Intermediate, eczema, 05/27/18) toxic cleaning materials Penicillins (Verified Allergy, Unknown, 05/26/18) Past Surgical History Past Surgical Hx: no surgical history Family History Significant Family History: no pertinent family hx Social History Alcohol Use: none Smoking Status: Never smoker Drug Use: none Exam/Review of Systems Exam Vitals Vital Signs Date Temp Pulse Resp B/P (MAP) Pulse Ox O2 O2 Flow FiO2 Time Delivery Rate 08/01/18 86 22 101/74 100 Room Air 20:50 (83) 08/01/18 98.5 19:50 Constitutional: alert, oriented, well developed Psych: no complaints Head: normocephalic Eyes: nl conjunctiva ENMT: nl external ears & nose Neck: supple, non-tender Respiratory: clear to auscultation Cardiovascular: regular rate and rhythm Gastrointestinal: soft, other (, Nondistended, minimal right upper quadrant tenderness) Musculoskeletal: nl extremities to inspection Extremities: normal pulses Neurological: LEASING ASSISTANT II-XII intact Skin: nl turgor, rash or lesions Lymph: nl lymph nodes Results Result Diagram: 08/01/18 1205 08/01/18 1205 Results 24hrs Laboratory Tests Test 08/01/18 12:05 08/01/18 12:18 08/01/18 18:05 White Blood Count 15.8 #H Red Blood Count 4.16 L Hemoglobin 11.3 L Hematocrit 35.3 L Mean Corpuscular Volume 84.9 Mean Corpuscular Hemoglobin 27.2 L Mean Corpuscular Hemoglobin Concent 32.0 Red Cell Distribution Width 13.3 Platelet Count 370 # Mean Platelet Volume 9.5 Immature Granulocytes % 0.500 H Neutrophils % 78.8 H Lymphocytes % 9.2 L Monocytes % 8.0 Eosinophils % 3.2 Basophils % 0.3 Nucleated Red Blood Cells % 0.0 Immature Granulocytes # 0.080 H Neutrophils # 12.5 H Lymphocytes # 1.5 Monocytes # 1.3 H Eosinophils # 0.5 Basophils # 0.1 Nucleated Red Blood Cells # 0.0 Urine Color YELLOW Urine Clarity CLOUDY A Urine pH 6.0 Urine Specific [place] 1.012 Urine Ketones TRACE A Urine Nitrite NEGATIVE Urine Bilirubin NEGATIVE Urine Urobilinogen 1+ H Urine Leukocyte Esterase 1+ H Urine Microscopic RBC 16 H Urine Microscopic WBC 34 H Urine Squamous Epithelial Cells MODERATE Urine Bacteria FEW A Urine Hemoglobin 3+ H Urine Glucose NEGATIVE Urine Total Protein NEGATIVE Sodium Level 136 Potassium Level 3.7 Chloride Level 99 Carbon Dioxide Level 25 Anion Gap 12 Blood Urea Nitrogen 8 Creatinine 0.53 Est Glomerular Filtrat Rate mL/min > 60 Glucose Level 104 Calcium Level 9.5 Total Bilirubin 0.4 Direct Bilirubin 0.00 Indirect Bilirubin 0.4 Aspartate Amino Transf (AST/SGOT) 92 H Alanine Aminotransferase (ALT/SGPT) 155 H Alkaline Phosphatase 285 H Total Protein 9.0 H Albumin 4.4 Globulin 4.60 H Albumin/Globulin Ratio 0.95 POC Beta HCG, Qualitative NEGATIVE Troponin I < 0.012 Imaging Imaging Patient: CHEYENNE CEBALLOS : 1980 Age: 38 Sex: F MR #: [id number] [facility] #: [id number] DOS: 08/01/18 1316 Ordering MD: NICK RIVERA Location: [facility] Room/Bed: PROCEDURE: CT abdomen and pelvis with contrast. CLINICAL INDICATION: Right upper quadrant pain. Fever. Cholecystitis. TECHNIQUE: CT scan of the abdomen and pelvis without oral contrast was performed and is reconstructed at 2.5 mm contiguous axial intervals from the dome of the diaphragm to the inferior pubic rami.. The patient was scanned with intravenous contrast. Sagittal and coronal reformatted images were obtained from the axial source images. The calculated radiation dose measures 782 mGy centimeters. The CTDI measures 12.6 mGy. Individualized dose optimization technique was used for the performance of this exam. This included 1. Automated exposure control. 2. Adjustment of the mA and / or kV according to the patient's size. 3. Use of iterative reconstructed technique. COMPARISON: Abdominal ultrasound earlier same date. CT abdomen May 29, 2018. FINDINGS: The lung bases are clear of any infiltrate or nodule. There is atelectasis at the right lung base. No effusion is seen. The liver is of normal size, contour and attenuation with no mass or ductal dilatation. Gallbladder is mildly distended. No calcified stones are seen. There is diffuse wall thickening with multiple loculated pericholecystic fluid collections in within the surrounding liver. These are highly suspicious for multiple abscesses. No common bile duct stone is seen. No splenic, adrenal or pancreatic abnormalities present. Kidneys enhance symmetrically and are of normal size and contour. No hydronephrosis, calculus or masses seen. Ureters are of normal course and caliber with no stone. No bladder mass or stone is present. There is an IUD within the endometrial canal. There is no aneurysm. No adenopathy is present. No bowel mass or obstruction is present. The appendix is normal. No phlegmon, ascites or pneumoperitoneum is visualized. The osseous structures are intact. IMPRESSION: Distended inflamed gallbladder with multiple loculated pericholecystic and surrounding intrahepatic abscesses. .Rios Cummins MD, Date Time Electronically viewed and signed by .Rios Cummins MD, on 08/01/2018 15: 40 .A/ CC: NICK RIVERA Medications Medication Current Medications Ondansetron HCl (Zofran Inj) 4 mg BRIDGE ORDER PRN IV NAUSEA/VOMITING; Start 08/01/18 at 18:00; Stop 08/02/18 at 17:59 Acetaminophen (Tylenol Tab) 650 mg ER BRIDGE PRN PO .MILD PAIN 1-3 OR TEMP; Start 08/01/18 at 18:00; Stop 08/02/18 at 17:59 IV Flush (NS 3 ml) 3 ml PER PROTOCOL IV ; Start 08/01/18 at 19:30 Ondansetron HCl (Zofran Inj) 4 mg Q6H PRN IV NAUSEA/VOMITING Last administered on 08/01/18at 21:34; Admin Dose 4 MG; Start 08/01/18 at 19:30 Acetaminophen (Tylenol Tab) 650 mg Q6H PRN PO .PAIN 1-3 OR TEMP; Start 08/01/18 at 19:30 Acetaminophen/ Hydrocodone Bitart ([place] (5/325)) 1 tab Q6H PRN PO .MOD PAIN 4- 6; Start 08/01/18 at 19:30 Pantoprazole (Protonix Iv) 40 mg DAILY@06 IV ; Start 08/02/18 at 06:00 Levofloxacin/ Dextrose 150 ml @ 100 mls/hr Q24H IVPB Last administered on 08/01/18at 19:55; Admin Dose 100 MLS/HR; Start 08/01/18 at 19:30 Metronidazole 100 ml @ 100 mls/hr Q8 IVPB Last administered on 08/01/18at 21:34; Admin Dose 100 MLS/HR; Start 08/01/18 at 22:00 OSMAN YEH MD Aug 01, 2018 22:09
[2018-08-01 22:13] VITALS: Ht 162.6 cm; Wt 74.2 kg
[2018-08-02 02:39] VITALS: BP 108/68; PULSE 79; RESP 18
[2018-08-02] MEDS: PANTOPRAZOLE 40 MG INJ IV SCH (05:16)
[2018-08-02] MEDS: Metronidazole 500 MG in NS 100 ML IVPB SCH ×3 (05:16→21:30)
[2018-08-02] MEDS: ACETAMINOPHEN 325 MG TAB PO PRN ×3 (05:19→20:22)
[2018-08-02 08:27] VITALS: BP 98/56; PULSE 76; RESP 18
--- NOTE | 2018-08-02 09:47 | PN ---
Date/Time of Note Date/Time of Note DATE: 08/02/18 TIME: 09:46 Assessment/Plan Lines/Catheters IV Catheter Type (from Nrsg): Peripheral IV Galvez in Place (from Nrsg): No Assessment/Plan Assessment/Plan Gallbladder/hepatic abscess Discussed with IR. Amenable to drainage However, need cardiac clearance prior to IR. Further still needs cardiac clearance for potential lap ashleigh. Patient was supposed to have a cardiac clearance at all view following last admission. This is not been done. Subjective 24 Hr Interval Summary Constitutional: no complaints, improved Pain Control: well controlled Exam/Review of Systems Vital Signs Vitals Vital Signs Date Temp Pulse Resp B/P (MAP) Pulse Ox O2 O2 Flow FiO2 Time Delivery Rate 08/02/18 98.6 76 18 98/56 (70) 97 Room Air 08:27 Intake and Output 08/01/18 08/01/18 08/02/18 1515:00 23:00 07:00 IntakeIntake Total 100 ml 400 ml BalanceBalance 100 ml 400 ml Exam Constitutional: alert, well developed Respiratory: clear to auscultation Cardiovascular: regular rate and rhythm Gastrointestinal: soft, non-tender Results Result Diagram: 08/02/18 0501 08/02/18 0501 OSMAN YEH MD Aug 02, 2018 09:47
[2018-08-02 14:16] VITALS: BP 126/73; PULSE 94; RESP 18
[2018-08-02] MEDS ORDERED: METOPROLOL 25 MG TAB PO ONE (15:30)
--- NOTE | 2018-08-02 16:01 | PN ---
Date/Time of Note Date/Time of Note DATE: 08/02/18 TIME: 15:48 Assessment/Plan VTE Prophylaxis Risk score (from Nsg)>0 risk: 0 SCD applied (from Nsg): Yes Pharmacological prophylaxis: other Lines/Catheters IV Catheter Type (from Nrsg): Peripheral IV Urinary Cath still in place: No Assessment/Plan Hospital Course S: Patient seen by surgery team. Awaiting to have now cardiac CTA performed. O: VS - see below PE: Gen: Overweight woman lying in gurney in no acute distress Eyes: PERRL, no icterus HEENT: Clear oropharynx, moist mucous membranes Neck: No lymphadenopathy Card: Regular rate and rhythm, no murmurs Pulm: Clear to auscultation bilaterally Abd: RUQ well-healed cholecystostomy tube site. No guarding, no hepatosplenomegaly. Ext: No cyanosis/clubbing/edema CT abdomen pelvis with contrast: IMPRESSION: Distended inflamed gallbladder with multiple loculated pericholecystic and surrounding intrahepatic abscesses. Assessment and plan: 38-year-old female who presents with: #Sepsis- Suspect source is pericholecystic fluid. Again seen by surgery team yesterday and today. Patient leukocytosis more frequent fevers today. -Follow-up results of UA and culture, blood cultures -Surgery team trying to decide between IR guided drainage versus surgical intervention. First needs cardiac clearance given abnormal stress test the patient apparently had 2 months ago -Add aztreonam and continue metronidazole (PCN allergy) -we will also obtain ID consult -Continue IV fluids #Pericholecystic fluid with small hepatic abscesses- Per discussion with Dr. Hoover, this is likely to complex for general surgery. -Per surgery team, after cardiac clearance given, will likely proceed with IR if this can be drained percutaneously again. - If not, may need transfer to higher level of care for hepatobiliary surgery. -Monitor LFTs in a.m. as well #Chest pain- Ischemic stress test in May 2018, had planned for outpatient cardiac cath- EKG reviewed in ED, negative for acute ischemia -Per discussion with cardiology team, they will order for cardiac CTA. #Headache-head CT negative for any acute findings -Continue monitor for now DVT: SCDs GI: None Result Diagram: 08/02/18 0501 08/02/18 0501 Results 24hrs Laboratory Tests Test 08/01/18 18:05 08/02/18 05:01 Troponin I < 0.012 White Blood Count 14.4 H Red Blood Count 4.12 L Hemoglobin 11.1 L Hematocrit 34.6 L Mean Corpuscular Volume 84.0 Mean Corpuscular Hemoglobin 26.9 L Mean Corpuscular Hemoglobin Concent 32.1 Red Cell Distribution Width 13.4 Platelet Count 349 Mean Platelet Volume 9.7 Immature Granulocytes % 0.400 Neutrophils % 77.2 H Lymphocytes % 9.2 L Monocytes % 8.1 Eosinophils % 4.8 Basophils % 0.3 Nucleated Red Blood Cells % 0.0 Immature Granulocytes # 0.060 H Neutrophils # 11.1 H Lymphocytes # 1.3 Monocytes # 1.2 H Eosinophils # 0.7 H Basophils # 0.0 Nucleated Red Blood Cells # 0.0 Sodium Level 139 Potassium Level 3.9 Chloride Level 99 Carbon Dioxide Level 28 Anion Gap 12 Blood Urea Nitrogen 10 Creatinine 0.53 Est Glomerular Filtrat Rate mL/min > 60 Glucose Level 101 Hemoglobin A1c 5.1 Calcium Level 9.3 Phosphorus Level 3.9 Magnesium Level 2.4 Total Bilirubin 0.3 Direct Bilirubin 0.00 Indirect Bilirubin 0.3 Aspartate Amino Transf (AST/SGOT) 50 H Alanine Aminotransferase (ALT/SGPT) 114 H Alkaline Phosphatase 261 H Total Protein 8.4 H Albumin 4.0 Globulin 4.40 H Albumin/Globulin Ratio 0.90 Triglycerides Level 80 Cholesterol Level 152 LDL Cholesterol, Calculated 112 HDL Cholesterol 24 L Cholesterol/HDL Ratio 6.3 Thyroid Stimulating Hormone (TSH) 2.000 Exam/Review of Systems Exam Vitals Vital Signs Date Temp Pulse Resp B/P (MAP) Pulse Ox O2 O2 Flow FiO2 Time Delivery Rate 08/02/18 100.3 14:17 08/02/18 94 18 126/73 97 Room Air 14:16 (90) Intake and Output 08/01/18 08/01/18 08/02/18 1515:00 23:00 07:00 IntakeIntake Total 100 ml 400 ml BalanceBalance 100 ml 400 ml Results Results 24hrs Laboratory Tests Test 08/01/18 18:05 08/02/18 05:01 Troponin I < 0.012 White Blood Count 14.4 H Red Blood Count 4.12 L Hemoglobin 11.1 L Hematocrit 34.6 L Mean Corpuscular Volume 84.0 Mean Corpuscular Hemoglobin 26.9 L Mean Corpuscular Hemoglobin Concent 32.1 Red Cell Distribution Width 13.4 Platelet Count 349 Mean Platelet Volume 9.7 Immature Granulocytes % 0.400 Neutrophils % 77.2 H Lymphocytes % 9.2 L Monocytes % 8.1 Eosinophils % 4.8 Basophils % 0.3 Nucleated Red Blood Cells % 0.0 Immature Granulocytes # 0.060 H Neutrophils # 11.1 H Lymphocytes # 1.3 Monocytes # 1.2 H Eosinophils # 0.7 H Basophils # 0.0 Nucleated Red Blood Cells # 0.0 Sodium Level 139 Potassium Level 3.9 Chloride Level 99 Carbon Dioxide Level 28 Anion Gap 12 Blood Urea Nitrogen 10 Creatinine 0.53 Est Glomerular Filtrat Rate mL/min > 60 Glucose Level 101 Hemoglobin A1c 5.1 Calcium Level 9.3 Phosphorus Level 3.9 Magnesium Level 2.4 Total Bilirubin 0.3 Direct Bilirubin 0.00 Indirect Bilirubin 0.3 Aspartate Amino Transf (AST/SGOT) 50 H Alanine Aminotransferase (ALT/SGPT) 114 H Alkaline Phosphatase 261 H Total Protein 8.4 H Albumin 4.0 Globulin 4.40 H Albumin/Globulin Ratio 0.90 Triglycerides Level 80 Cholesterol Level 152 LDL Cholesterol, Calculated 112 HDL Cholesterol 24 L Cholesterol/HDL Ratio 6.3 Thyroid Stimulating Hormone (TSH) 2.000 Medications Medication Current Medications Ondansetron HCl (Zofran Inj) 4 mg BRIDGE ORDER PRN IV NAUSEA/VOMITING; Start 08/01/18 at 18:00; Stop 08/02/18 at 17:59 Acetaminophen (Tylenol Tab) 650 mg ER BRIDGE PRN PO .MILD PAIN 1-3 OR TEMP; Start 08/01/18 at 18:00; Stop 08/02/18 at 17:59 IV Flush (NS 3 ml) 3 ml PER PROTOCOL IV ; Start 08/01/18 at 19:30 Ondansetron HCl (Zofran Inj) 4 mg Q6H PRN IV NAUSEA/VOMITING Last administered on 08/01/18at 21:34; Admin Dose 4 MG; Start 08/01/18 at 19:30 Acetaminophen (Tylenol Tab) 650 mg Q6H PRN PO .PAIN 1-3 OR TEMP Last adm inistered on 08/02/18at 13:32; Admin Dose 650 MG; Start 08/01/18 at 19:30 Acetaminophen/ Hydrocodone Bitart ([place] (5/325)) 1 tab Q6H PRN PO .MOD PAIN 4- 6; Start 08/01/18 at 19:30 Pantoprazole (Protonix Iv) 40 mg DAILY@06 IV Last administered on 08/02/18at 05:16; Admin Dose 40 MG; Start 08/02/18 at 06:00 Levofloxacin/ Dextrose 150 ml @ 100 mls/hr Q24H IVPB Last administered on 08/01/18at 19:55; Admin Dose 100 MLS/HR; Start 08/01/18 at 19:30 Metronidazole 100 ml @ 100 mls/hr Q8 IVPB Last administered on 08/02/18at 13:30; Admin Dose 100 MLS/HR; Start 08/01/18 at 22:00 KEAGAN ELENA Aug 02, 2018 16:01
--- NOTE | 2018-08-02 16:24 | EN ---
Date/Time of Note Date/Time of Note DATE: 08/02/18 TIME: 16:23 Event Note Cardiology Cardiology Event Note Cardiac CTA will be ordered to evaluate chest pain. My suspicion is that the Gilbert iscan 05/25 was a false positive in a young female without risk factors. Full note and cardiac clearance to follow. LIANA LEA Aug 02, 2018 16:24
[2018-08-02] MEDS ORDERED: METOPROLOL 50 MG TAB PO ONE (17:00)
[2018-08-02] MEDS: AZTREONAM 2 GM in SOD CHLORIDE 0.9% 100 ML IVPB SCH (17:14)
[2018-08-02] MEDS: DEXTROSE 5%-0.45% NACL 1,000 ML IV SCH (17:17)
[2018-08-02] MEDS: HYDROCODONE/APAP (5/325) TAB PO PRN (18:28)
[2018-08-02 19:48] VITALS: BP 107/56; PULSE 92; RESP 18
[2018-08-03 02:08] VITALS: BP 100/56; PULSE 84; RESP 18
[2018-08-03] MEDS: DEXTROSE 5%-0.45% NACL 1,000 ML IV SCH ×2 (05:20→13:01)
[2018-08-03] MEDS: Metronidazole 500 MG in NS 100 ML IVPB SCH ×3 (05:44→22:28)
[2018-08-03] MEDS: PANTOPRAZOLE 40 MG INJ IV SCH (05:44)
--- NOTE | 2018-08-03 07:26 | CONS ---
DATE OF ADMISSION: 08/01/2018 DATE OF CONSULTATION: 08/02/2018 REASON FOR CONSULTATION: Antibiotic management. HISTORY OF PRESENT ILLNESS: Salome Acosta is a 38-year-old female who was admitted with 3 day s of fever and is being seen for antibiotic management. The patient has a history of cholecystitis. She presents with a 3-day history of fever as well as chest pain on the right side. She had cholecy stitis a few months ago, needed to have a drain put into the gallbladder. She was told that if she h ad a fever she should come back to the emergency room which she did today. She has been having hemat uria for a few days prior to admission and intermittent headache. The patient had been on Levaquin. PAST MEDICAL HISTORY: Operations aside from her possible cholecystostomy none. No medical problems. FAMILY HISTORY: Noncontributory. SOCIAL HISTORY: She does not smoke, drink or abuse drugs. ALLERGIES: SHE IS ALLERGIC TO: 1. SHRIMP. 2. SOAP. 3. PENICILLIN. PHYSICAL EXAMINATION: GENERAL/VITAL SIGNS: She is a well-developed, well-nourished female who comes in with a temperature of 102.8, pulse of 109, respirations of 20 and blood pressure of 138/78. SKIN: Without generalized rash or icterus. HEENT: Within normal limits. NECK: Supple. LYMPH NODES: None palpable. CHEST: Decreased breath sounds at the bases. HEART: Without murmur or gallop. ABDOMEN: Soft, nontender, without organosplenomegaly or masses. She has a positive Kohler sign. No rigidity. No tenderness in the splenic area or splenomegaly. No CVA tenderness. EXTREMITIES: Without cyanosis, clubbing or edema. RECTAL/GENITAL EXAM: Deferred. NEUROLOGICAL EVALUATION: No focal neurological abnormality. LABORATORY DATA: On admission on the , the white count was 15.8, H and H 11.3/35.3, platelet cou nt 370,000. BUN and creatinine 8/0.53. HOSPITAL COURSE: She was seen in consultation by Dr. Hoover, Surgery, and he noted recurrent gallbla dder/hepatic abscess. He recommended invasive radiology drainage as patient is too high risk for gen eral anesthesia. She was hospitalized a few months ago, failed a stress test. White count is . Her abdomen is very benign. We will continue to treat conservatively due to significant coronary a rtery disease. Gallbladder/hepatic abscess discussed with IR and amenable to drainage according to Teri Hoover. Microbiology, urine culture preliminary is too young to evaluate. Influenza A and B are negative. White count is . The patient is currently on aztreonam and metronidazole. She was o n Levaquin. A CT scan of the abdomen and pelvis shows distended and inflamed gallbladder with multip le loculated pericholecystic and surrounding intrahepatic abscesses. Gallbladder ultrasound: Large calcified stone within the gallbladder, no evidence of gallbladder wall thickening or pericholecystic fluid, mild hepatomegaly. A cardiac CT angiogram was ordered to evaluate chest pain. For the time being, we will continue her on aztreonam and metronidazole. We may want to change her to clindamycin and Levaquin. For the time being, we will continue her on current therapy. I will dictate my findi ngs to the hospitalist and to Dr. Hoover and Dr. Monroy. Dictated By: ROBERTA ZARATE MD, JD/NTS Conf#: [id number] DID#: [id number] CC: JOHN VELOZ MD;*EndCC*
[2018-08-03] MEDS ORDERED: METOPROLOL 50 MG TAB PO ONE (08:00)
[2018-08-03 08:01] VITALS: BP 100/56; PULSE 73; RESP 16
--- NOTE | 2018-08-03 08:46 | CONS ---
Assessment/Plan Assessment/Plan Hospital Course (Demo Recall) ?CAD: I personally reviewed the echo from 05/25 ans in one view there is inferolateral hypokinesis but in another view it looks normal so probably just artifact from dropout. The inferior defect on Lexiscan may just be breast attenuation of from GI pathology. I highly doubt a 38 yo F without any CAD risk factors and no chest pain has true CAD. To put this issue to rest a cardiac CTA would be a great test for diagnosis. Pre-op evaluation: As above, my suspicion for CAD is low. Even if she has CAD, the stress test results are low risk. IR drainage of the abscess is a low risk procedure and this can be done without further testing. If she needs complex abdominal surgery, it is best to officially rule out CAD. As above, a cardiac CTA should hopefully answer the question definitively. If no CAD she is at low risk for both IR drainage and for abdominal surgery Cholecystitis with hepatic abscesses -cardiac CTA -metoprolol 100mg x [address] (given 50mg yesterday but HR remained elevated) -antibiotics -ok for IR drainage Consultation Date/Type/Reason Admit Date/Time Aug 01, 2018 Date of Consultation: Aug 03, 2018 Type of Consult Cardiology Reason for Consultation pre-op eval Requesting Provider: KEAGAN ELENA Date/Time of Note DATE: 08/03/18 TIME: 08:37 Hx of Present Illness 38 yo F with no chronic medical history who was admitted for abdominal pain and fevers and found to have cholecystitis with hepatic abscesses. She was here 05/25 for cholecystitis. She had an echo which showed questionable wall motion abnormalities. She then had a Lexiscan showing small reversible inferior defect concerning for ischemia. Due to this she had a cholecystostomy instead of surgery. Now she is to have IR drainage and then possible surgery. She denies prior cardiac disease. She is active and works in a restaurant. No chest pain with exertion or otherwise. She has never had chest pain. She only has had abdominal pain. No family h/o premature CAD. No personal history of DM, HTN, HL, smoking. per hPI Past Medical History per hPI Medical History: other (Coronary artery disease) Home Meds Active Scripts Levofloxacin* (Levaquin*) 750 Mg Tablet, 750 MG PO DAILY for 7 Days, #7 TAB Prov:DALLAS BURNHAM NP 06/03/18 Aspirin Delayed Release (Aspirin Delayed Release) 81 Mg Tablet.dr, 81 MG PO DAILY, #30 Prov:DALLAS BURNHAM [employer] 06/03/18 Medications Current Medications IV Flush (NS 3 ml) 3 ml PER PROTOCOL IV ; Start 08/01/18 at 19:30 Ondansetron HCl (Zofran Inj) 4 mg Q6H PRN IV NAUSEA/VOMITING Last administered on 08/01/18 21:34; Admin Dose 4 MG; Start 08/01/18 at 19:30 Acetaminophen (Tylenol Tab) 650 mg Q6H PRN PO .PAIN 1-3 OR TEMP Last administered on 08/02/18 20:22; Admin Dose 650 MG; Start 08/01/18 at 19:30 Acetaminophen/ Hydrocodone Bitart ([place] (5/325)) 1 tab Q6H PRN PO .MOD PAIN 4- 6 Last administered on 08/02/18 18:28; Admin Dose 1 TAB; Start 08/01/18 at 19:30 Pantoprazole (Protonix Iv) 40 mg DAILY@06 IV Last administered on 08/03/18 05:44; Admin Dose 40 MG; Start 08/02/18 at 06:00 Metronidazole 100 ml @ 100 mls/hr Q8 IVPB Last administered on 08/03/18 05:44; Admin Dose 100 MLS/HR; Start 08/01/18 at 22:00 Aztreonam 2 gm/ Sodium Chloride 100 ml @ 100 mls/hr Q12 IVPB Last administered on 08/02/18 17:14; Admin Dose 100 MLS/HR; Start 08/02/18 at 17:30 Dextrose/Sodium Chloride 1,000 ml @ 75 mls/hr [id number] IV Last administered on 08/02/18 17:17; Admin Dose 75 MLS/HR; Start 08/02/18 at 16:00 Allergies: Coded Allergies: shrimp (Verified Allergy, Intermediate, eczema, 05/27/18) and seafood soap (Verified Allergy, Intermediate, eczema, 05/27/18) toxic cleaning materials Penicillins (Verified Allergy, Unknown, 05/26/18) Past Surgical History Past Surgical Hx: no surgical history Social History Alcohol Use: none Smoking Status: Never smoker Drug Use: none Exam/Review of Systems Exam Vitals Vital Signs Date Temp Pulse Resp B/P (MAP) Pulse Ox O2 O2 Flow FiO2 Time Delivery Rate 08/03/18 99.1 73 16 100/56 90 08:01 (71) 08/02/18 Room Air 14:16 Intake and Output 08/02/18 08/02/18 08/03/18 1414:59 22:59 06:59 IntakeIntake Total 100 ml 275 ml 425 ml BalanceBalance 100 ml 275 ml 425 ml Constitutional: alert, oriented Psych: no complaints, nl mood/affect Head: normocephalic, atraumatic Neck: supple; No jvd Respiratory: clear to auscultation; No crackles/rales Cardiovascular: regular rate and rhythm; No edema Gastrointestinal: soft; No non-tender, No distended Neurological: nl mental status, nl speech Results Result Diagram: 08/03/18 0557 08/03/18 0557 Results 24hrs Laboratory Tests Test 08/03/18 05:57 White Blood Count 12.8 H Red Blood Count 3.86 L Hemoglobin 10.4 L Hematocrit 32.8 L Mean Corpuscular Volume 85.0 Mean Corpuscular Hemoglobin 26.9 L Mean Corpuscular Hemoglobin Concent 31.7 L Red Cell Distribution Width 13.6 Platelet Count 368 Mean Platelet Volume 9.6 Immature Granulocytes % 0.600 H Neutrophils % 75.1 Lymphocytes % 10.5 L Monocytes % 8.8 Eosinophils % 4.5 Basophils % 0.5 Nucleated Red Blood Cells % 0.0 Immature Granulocytes # 0.080 H Neutrophils # 9.6 H Lymphocytes # 1.3 Monocytes # 1.1 H Eosinophils # 0.6 H Basophils # 0.1 Nucleated Red Blood Cells # 0.0 Sodium Level 137 Potassium Level 3.3 L Chloride Level 99 Carbon Dioxide Level 25 Anion Gap 13 Blood Urea Nitrogen 9 Creatinine 0.61 Est Glomerular Filtrat Rate mL/min > 60 Glucose Level 131 Calcium Level 9.0 Phosphorus Level 3.8 Magnesium Level 2.0 Total Bilirubin 0.2 Direct Bilirubin 0.00 Indirect Bilirubin 0.2 Aspartate Amino Transf (AST/SGOT) 82 H Alanine Aminotransferase (ALT/SGPT) 103 H Alkaline Phosphatase 307 H Total Protein 8.1 Albumin 3.8 Globulin 4.30 H Albumin/Globulin Ratio 0.88 Medications Medication Current Medications IV Flush (NS 3 ml) 3 ml PER PROTOCOL IV ; Start 08/01/18 at 19:30 Ondansetron HCl (Zofran Inj) 4 mg Q6H PRN IV NAUSEA/VOMITING Last administered on 08/01/18 21:34; Admin Dose 4 MG; Start 08/01/18 at 19:30 Acetaminophen (Tylenol Tab) 650 mg Q6H PRN PO .PAIN 1-3 OR TEMP Last administered on 08/02/18 20:22; Admin Dose 650 MG; Start 08/01/18 at 19:30 Acetaminophen/ Hydrocodone Bitart ([place] (5/325)) 1 tab Q6H PRN PO .MOD PAIN 4- 6 Last administered on 08/02/18 18:28; Admin Dose 1 TAB; Start 08/01/18 at 19:30 Pantoprazole (Protonix Iv) 40 mg DAILY@06 IV Last administered on 08/03/18 05:44; Admin Dose 40 MG; Start 08/02/18 at 06:00 Metronidazole 100 ml @ 100 mls/hr Q8 IVPB Last administered on 08/03/18 05:44; Admin Dose 100 MLS/HR; Start 08/01/18 at 22:00 Aztreonam 2 gm/ Sodium Chloride 100 ml @ 100 mls/hr Q12 IVPB Last administered on 08/02/18 17:14; Admin Dose 100 MLS/HR; Start 08/02/18 at 17:30 Dextrose/Sodium Chloride 1,000 ml @ 75 mls/hr [id number] IV Last administered on 08/02/18 17:17; Admin Dose 75 MLS/HR; Start 08/02/18 at 16:00 LIANA LEA Aug 03, 2018 08:45
[2018-08-03] MEDS: AZTREONAM 2 GM in SOD CHLORIDE 0.9% 100 ML IVPB SCH (09:19)
[2018-08-03] MEDS ORDERED: METOPROLOL 100 MG TAB PO STA (10:46)
[2018-08-03 14:11] VITALS: BP 107/66; PULSE 78; RESP 16
--- NOTE | 2018-08-03 14:38 | PN ---
Date/Time of Note Date/Time of Note DATE: 08/03/18 TIME: 14:28 Assessment/Plan VTE Prophylaxis Risk score (from Nsg)>0 risk: 3 SCD applied (from Nsg): Yes Pharmacological prophylaxis: other Lines/Catheters IV Catheter Type (from Nrsg): Peripheral IV Urinary Cath still in place: No Assessment/Plan Hospital Course S: Patient still with occasional fevers, seen by cardiology team this morning and ID team yesterday. Still waiting to have now cardiac CTA performed. Still n.p.o. O: VS - see below PE: Gen: lying in gurney in no acute distress Eyes: PERRL, no icterus HEENT: Clear oropharynx, moist mucous membranes Neck: No lymphadenopathy Card: Regular rate and rhythm, no murmurs Pulm: Clear to auscultation bilaterally Abd: RUQ well-healed cholecystostomy tube site. No guarding, no hepatosplenomegaly. Ext: No cyanosis/clubbing/edema CT abdomen pelvis with contrast: IMPRESSION: Distended inflamed gallbladder with multiple loculated pericholecystic and surrounding intrahepatic abscesses. Assessment and plan: 38-year-old female who presents with: #Sepsis- Suspect source is pericholecystic fluid/abscess. Awaiting cardiac CTA now (ordered by cardiology team given patient's possible abnormal cardiac stress test performed prior to admission) -Follow-up results of UA and culture, blood cultures -Again follow-up results of cardiac CTA, afterwards then surgery team will likely proceed with order for IR guided drainage versus surgical intervention of the hepatic abscess. -Appreciate ID recommendations, for now continue aztreonam and continue metronidazole (PCN allergy) -Continue IV fluids #Pericholecystic fluid with small hepatic abscesses-again presently on antibiotics, surgery team on the case as well as ID -Per surgery team, as mentioned above after cardiac clearance given, will likely proceed with IR if this can be drained percutaneously again. - If not, may need transfer to higher level of care for hepatobiliary surgery. -Monitor LFTs in a.m. as well #Chest pain-resolving now, cardiology team on the case for possible abnormal stress test performed earlier. -Per discussion with cardiology team, again awaiting cardiac CTA later today, follow-up results of this #Headache-head CT negative for any acute findings -Continue monitor for now DVT: SCDs GI: None Result Diagram: 08/03/18 0557 08/03/18 0557 Results 24hrs Laboratory Tests Test 08/03/18 05:57 White Blood Count 12.8 H Red Blood Count 3.86 L Hemoglobin 10.4 L Hematocrit 32.8 L Mean Corpuscular Volume 85.0 Mean Corpuscular Hemoglobin 26.9 L Mean Corpuscular Hemoglobin Concent 31.7 L Red Cell Distribution Width 13.6 Platelet Count 368 Mean Platelet Volume 9.6 Immature Granulocytes % 0.600 H Neutrophils % 75.1 Lymphocytes % 10.5 L Monocytes % 8.8 Eosinophils % 4.5 Basophils % 0.5 Nucleated Red Blood Cells % 0.0 Immature Granulocytes # 0.080 H Neutrophils # 9.6 H Lymphocytes # 1.3 Monocytes # 1.1 H Eosinophils # 0.6 H Basophils # 0.1 Nucleated Red Blood Cells # 0.0 Sodium Level 137 Potassium Level 3.3 L Chloride Level 99 Carbon Dioxide Level 25 Anion Gap 13 Blood Urea Nitrogen 9 Creatinine 0.61 Est Glomerular Filtrat Rate mL/min > 60 Glucose Level 131 Calcium Level 9.0 Phosphorus Level 3.8 Magnesium Level 2.0 Total Bilirubin 0.2 Direct Bilirubin 0.00 Indirect Bilirubin 0.2 Aspartate Amino Transf (AST/SGOT) 82 H Alanine Aminotransferase (ALT/SGPT) 103 H Alkaline Phosphatase 307 H Total Protein 8.1 Albumin 3.8 Globulin 4.30 H Albumin/Globulin Ratio 0.88 Exam/Review of Systems Exam Vitals Vital Signs Date Temp Pulse Resp B/P (MAP) Pulse Ox O2 O2 Flow FiO2 Time Delivery Rate 08/03/18 100.0 78 16 107/66 97 14:11 (80) 08/02/18 Room Air 14:16 Intake and Output 08/02/18 08/02/18 08/03/18 1515:00 23:00 07:00 IntakeIntake Total 100 ml 275 ml 425 ml BalanceBalance 100 ml 275 ml 425 ml Results Results 24hrs Laboratory Tests Test 08/03/18 05:57 White Blood Count 12.8 H Red Blood Count 3.86 L Hemoglobin 10.4 L Hematocrit 32.8 L Mean Corpuscular Volume 85.0 Mean Corpuscular Hemoglobin 26.9 L Mean Corpuscular Hemoglobin Concent 31.7 L Red Cell Distribution Width 13.6 Platelet Count 368 Mean Platelet Volume 9.6 Immature Granulocytes % 0.600 H Neutrophils % 75.1 Lymphocytes % 10.5 L Monocytes % 8.8 Eosinophils % 4.5 Basophils % 0.5 Nucleated Red Blood Cells % 0.0 Immature Granulocytes # 0.080 H Neutrophils # 9.6 H Lymphocytes # 1.3 Monocytes # 1.1 H Eosinophils # 0.6 H Basophils # 0.1 Nucleated Red Blood Cells # 0.0 Sodium Level 137 Potassium Level 3.3 L Chloride Level 99 Carbon Dioxide Level 25 Anion Gap 13 Blood Urea Nitrogen 9 Creatinine 0.61 Est Glomerular Filtrat Rate mL/min > 60 Glucose Level 131 Calcium Level 9.0 Phosphorus Level 3.8 Magnesium Level 2.0 Total Bilirubin 0.2 Direct Bilirubin 0.00 Indirect Bilirubin 0.2 Aspartate Amino Transf (AST/SGOT) 82 H Alanine Aminotransferase (ALT/SGPT) 103 H Alkaline Phosphatase 307 H Total Protein 8.1 Albumin 3.8 Globulin 4.30 H Albumin/Globulin Ratio 0.88 Medications Medication Current Medications IV Flush (NS 3 ml) 3 ml PER PROTOCOL IV ; Start 08/01/18 at 19:30 Ondansetron HCl (Zofran Inj) 4 mg Q6H PRN IV NAUSEA/VOMITING Last administered on 08/01/18 21:34; Admin Dose 4 MG; Start 08/01/18 at 19:30 Acetaminophen (Tylenol Tab) 650 mg Q6H PRN PO .PAIN 1-3 OR TEMP Last administer ed on 08/02/18 20:22; Admin Dose 650 MG; Start 08/01/18 at 19:30 Acetaminophen/ Hydrocodone Bitart ([place] (5/325)) 1 tab Q6H PRN PO .MOD PAIN 4- 6 Last administered on 08/02/18 18:28; Admin Dose 1 TAB; Start 08/01/18 at 19:30 Pantoprazole (Protonix Iv) 40 mg DAILY@06 IV Last administered on 08/03/18 05:44; Admin Dose 40 MG; Start 08/02/18 at 06:00 Metronidazole 100 ml @ 100 mls/hr Q8 IVPB Last administered on 08/03/18 13:01; Admin Dose 100 MLS/HR; Start 08/01/18 at 22:00 Aztreonam 2 gm/ Sodium Chloride 100 ml @ 100 mls/hr Q12 IVPB Last administered on 08/03/18 09:19; Admin Dose 100 MLS/HR; Start 08/02/18 at 17:30 Dextrose/Sodium Chloride 1,000 ml @ 75 mls/hr [id number] IV Last administered on 08/03/18at 13:01; Admin Dose 75 MLS/HR; Start 08/02/18 at 16:00 Potassium Chloride 100 ml @ 50 mls/hr Q2H IVPB ; Start 08/03/18 at 14:30; Stop 08/03/18 at 18:29; Status KEAGAN RUGGIERO Aug 03, 2018 14:38
[2018-08-03] MEDS: ACETAMINOPHEN 325 MG TAB PO PRN (14:40)
[2018-08-03] MEDS ORDERED: METOPROLOL 100 MG TAB ONE (14:43)
--- NOTE | 2018-08-03 15:10 | CONS ---
Assessment/Plan Assessment/Plan Hospital Course (Demo Recall) Patient is awake looks comfortable, spiking fevers with a T-max yesterday 101.8. WBC 12.8 platelets 368 neutrophils 75.1 BUN 9 creatinine 0.[address] abdomen and pelvis revealed distended inflamed gallbladder with multiple loculated pericholecystic and surrounding intrahepatic abscesses Antimicrobials: Aztreonam Flagyl Allergy: Penicillin Physical examination: Well-developed middle-aged woman in no distress. Head atraumatic normocephalic neck is supple chest rise symmetrical, breath sounds diminished bases. Heart: S1-S2. Abdomen soft guarded on palpation bowel sounds present. Extremities without cyanosis. Assessment: 1. Sepsis, present on admission 2. Gallbladder/hepatic abscesses 3. Oral candidiasis 4. UTI per urinalysis Plan: Patient is clinically stable, she is being seen by surgical team who recommends IR guided drainage and potential lap ashleigh. She is undergoing cardiac clearance. We will will change antibiotics to Meropenem, add nystatin swish, send urine culture Consultation Date/Type/Reason Admit Date/Time Aug 01, 2018 at 17:50 Initial Consult Date 08/03/18 Type of Consult id Requesting Provider: KEAGAN ELENA Date/Time of Note DATE: 08/03/18 TIME: 15:09 Exam/Review of Systems Exam Vitals Vital Signs Date Temp Pulse Resp B/P (MAP) Pulse Ox O2 O2 Flow FiO2 Time Delivery Rate 08/03/18 100.0 14:40 08/03/18 78 16 107/66 97 14:11 (80) 08/02/18 Room Air 14:16 Intake and Output 08/02/18 08/02/18 08/03/18 1515:00 23:00 07:00 IntakeIntake Total 100 ml 275 ml 425 ml BalanceBalance 100 ml 275 ml 425 ml Results Result Diagram: 08/03/18 0557 08/03/18 0557 Results 24hrs Laboratory Tests Test 08/03/18 05:57 White Blood Count 12.8 H Red Blood Count 3.86 L Hemoglobin 10.4 L Hematocrit 32.8 L Mean Corpuscular Volume 85.0 Mean Corpuscular Hemoglobin 26.9 L Mean Corpuscular Hemoglobin Concent 31.7 L Red Cell Distribution Width 13.6 Platelet Count 368 Mean Platelet Volume 9.6 Immature Granulocytes % 0.600 H Neutrophils % 75.1 Lymphocytes % 10.5 L Monocytes % 8.8 Eosinophils % 4.5 Basophils % 0.5 Nucleated Red Blood Cells % 0.0 Immature Granulocytes # 0.080 H Neutrophils # 9.6 H Lymphocytes # 1.3 Monocytes # 1.1 H Eosinophils # 0.6 H Basophils # 0.1 Nucleated Red Blood Cells # 0.0 Sodium Level 137 Potassium Level 3.3 L Chloride Level 99 Carbon Dioxide Level 25 Anion Gap 13 Blood Urea Nitrogen 9 Creatinine 0.61 Est Glomerular Filtrat Rate mL/min > 60 Glucose Level 131 Calcium Level 9.0 Phosphorus Level 3.8 Magnesium Level 2.0 Total Bilirubin 0.2 Direct Bilirubin 0.00 Indirect Bilirubin 0.2 Aspartate Amino Transf (AST/SGOT) 82 H Alanine Aminotransferase (ALT/SGPT) 103 H Alkaline Phosphatase 307 H Total Protein 8.1 Albumin 3.8 Globulin 4.30 H Albumin/Globulin Ratio 0.88 Medications Medication Current Medications IV Flush (NS 3 ml) 3 ml PER PROTOCOL IV ; Start 08/01/18 at 19:30 Ondansetron HCl (Zofran Inj) 4 mg Q6H PRN IV NAUSEA/VOMITING Last administered on 08/01/18 21:34; Admin Dose 4 MG; Start 08/01/18 at 19:30 Acetaminophen (Tylenol Tab) 650 mg Q6H PRN PO .PAIN 1-3 OR TEMP Last administered on 08/03/18 14:40; Admin Dose 650 MG; Start 08/01/18 at 19:30 Acetaminophen/ Hydrocodone Bitart ([place] (5/325)) 1 tab Q6H PRN PO .MOD PAIN 4- 6 Last administered on 08/02/18 18:28; Admin Dose 1 TAB; Start 08/01/18 at 19:30 Pantoprazole (Protonix Iv) 40 mg DAILY@06 IV Last administered on 08/03/18 05:44; Admin Dose 40 MG; Start 08/02/18 at 06:00 Metronidazole 100 ml @ 100 mls/hr Q8 IVPB Last administered on 08/03/18 13:01; Admin Dose 100 MLS/HR; Start 08/01/18 at 22:00 Aztreonam 2 gm/ Sodium Chloride 100 ml @ 100 mls/hr Q12 IVPB Last administered on 2/26/19at 09:19; Admin Dose 100 MLS/HR; Start 08/02/18 at 17:30 Dextrose/Sodium Chloride 1,000 ml @ 75 mls/hr [id number] IV Last administered on 08/03/18at 13:01; Admin Dose 75 MLS/HR; Start 08/02/18 at 16:00 Potassium Chloride 100 ml @ 50 mls/hr Q2H IVPB ; Start 08/03/18 at 15:30; Stop 08/03/18 at 19:29 RICKEY QUINTANA NP Aug 03, 2018 15:10
[2018-08-03] MEDS: POTASSIUM CHLORIDE 100 ML IVPB SCH ×3 (15:30→20:36)
[2018-08-03] MEDS: MEROPENEM 1 GM/50ML(PMX) 50 ML IVPB SCH (16:00)
[2018-08-03] MEDS ORDERED: SOD CHLORIDE 0.9% 100 ML ONE (16:35)
[2018-08-03] MEDS ORDERED: IOHEXOL 100 ML ONE (16:35)
[2018-08-03] MEDS: NYSTATIN SUSP 5 ML CUP PO SCH ×2 (17:00→20:40)
[2018-08-03 20:00] VITALS: BP 116/64; PULSE 74; RESP 17
[2018-08-04] MEDS: MEROPENEM 1 GM/50ML(PMX) 50 ML IVPB SCH ×3 (01:06→21:17)
[2018-08-04 02:03] VITALS: BP 101/63; PULSE 96; RESP 20
[2018-08-04] MEDS: ACETAMINOPHEN 325 MG TAB PO PRN ×2 (02:43→13:20)
[2018-08-04] MEDS: DEXTROSE 5%-0.45% NACL 1,000 ML IV SCH (05:36)
[2018-08-04] MEDS: PANTOPRAZOLE 40 MG INJ IV SCH (05:36)
[2018-08-04] MEDS: Metronidazole 500 MG in NS 100 ML IVPB SCH ×3 (05:37→22:01)
[2018-08-04 08:12] VITALS: BP 102/64; PULSE 69; RESP 16
[2018-08-04] MEDS: NYSTATIN SUSP 5 ML CUP PO SCH ×4 (08:24→21:18)
--- NOTE | 2018-08-04 10:52 | CONS ---
Assessment/Plan Assessment/Plan Hospital Course (Demo Recall) Abnormal Lexiscan: I personally reviewed the echo from 05/25 and in one view there is inferolateral hypokinesis but in another view it looks normal so probably just artifact from dropout. The inferior defect on Lexiscan was a false positive. Cardiac CTA 08/03/18 showed normal coronaries. Pre-op evaluation: Pt is at low risk for both IR drainage and for abdominal surgery as she does not have any CAD or cardiac pathology Cholecystitis with hepatic abscesses -ok for IR drainage or surgery. Pt is low risk -will see PRN Consultation Date/Type/Reason Admit Date/Time Aug 01, 2018 at 17:50 Initial Consult Date 08/03/18 Type of Consult Cardiology Requesting Provider: KEAGAN ELENA Date/Time of Note DATE: 08/04/18 TIME: 10:49 24 HR Interval Summary Free Text/Dictation No events. Cardiac CTA showed normal coronaries. Exam/Review of Systems Exam Vitals Vital Signs Date Temp Pulse Resp B/P (MAP) Pulse Ox O2 O2 Flow FiO2 Time Delivery Rate 08/04/18 97.9 69 16 102/64 98 08:12 (77) 08/03/18 Room Air 08:05 Intake and Output 08/03/18 08/03/18 08/04/18 1515:00 23:00 07:00 IntakeIntake Total 200 ml 200 ml 1375 ml BalanceBalance 200 ml 200 ml 1375 ml Constitutional: alert, oriented Psych: no complaints, nl mood/affect Head: normocephalic, atraumatic Respiratory: clear to auscultation; No crackles/rales Cardiovascular: regular rate and rhythm Gastrointestinal: soft; No distended Neurological: nl mental status, nl speech Results Result Diagram: 08/04/18 0520 08/04/18 0520 Results 24hrs Laboratory Tests Test 08/04/18 05:20 White Blood Count 14.0 H Red Blood Count 3.95 L Hemoglobin 10.6 L Hematocrit 33.2 L Mean Corpuscular Volume 84.1 Mean Corpuscular Hemoglobin 26.8 L Mean Corpuscular Hemoglobin Concent 31.9 L Red Cell Distribution Width 13.6 Platelet Count 387 Mean Platelet Volume 9.3 Immature Granulocytes % 0.600 H Neutrophils % 75.6 Lymphocytes % 11.3 L Monocytes % 7.2 Eosinophils % 4.8 Basophils % 0.5 Nucleated Red Blood Cells % 0.0 Immature Granulocytes # 0.090 H Neutrophils # 10.6 H Lymphocytes # 1.6 Monocytes # 1.0 H Eosinophils # 0.7 H Basophils # 0.1 Nucleated Red Blood Cells # 0.0 Sodium Level 139 Potassium Level 3.4 L Chloride Level 103 Carbon Dioxide Level 25 Anion Gap 11 Blood Urea Nitrogen 7 Creatinine 0.52 Est Glomerular Filtrat Rate mL/min > 60 Glucose Level 107 Calcium Level 9.0 Total Bilirubin 0.1 L Direct Bilirubin 0.00 Indirect Bilirubin 0.1 Aspartate Amino Transf (AST/SGOT) 31 Alanine Aminotransferase (ALT/SGPT) 58 Alkaline Phosphatase 259 H Total Protein 7.6 Albumin 3.6 Globulin 4.00 H Albumin/Globulin Ratio 0.90 Medications Medication Current Medications IV Flush (NS 3 ml) 3 ml PER PROTOCOL IV ; Start 08/01/18 at 19:30 Ondansetron HCl (Zofran Inj) 4 mg Q6H PRN IV NAUSEA/VOMITING Last administered on 08/01/18at 21:34; Admin Dose 4 MG; Start 08/01/18 at 19:30 Acetaminophen (Tylenol Tab) 650 mg Q6H PRN PO .PAIN 1-3 OR TEMP Last administered on 08/04/18 02:43; Admin Dose 650 MG; Start 08/01/18 at 19:30 Acetaminophen/ Hydrocodone Bitart ([place] (5/325)) 1 tab Q6H PRN PO .MOD PAIN 4- 6 Last administered on 08/02/18 18:28; Admin Dose 1 TAB; Start 08/01/18 at 19:30 Pantoprazole (Protonix Iv) 40 mg DAILY@06 IV Last administered on 08/04/18 05:36; Admin Dose 40 MG; Start 08/02/18 at 06:00 Metronidazole 100 ml @ 100 mls/hr Q8 IVPB Last administered on 08/04/18 05:37; Admin Dose 100 MLS/HR; Start 08/01/18 at 22:00 Dextrose/Sodium Chloride 1,000 ml @ 75 mls/hr [id number] IV Last administered on 08/04/18 05:36; Admin Dose 75 MLS/HR; Start 08/02/18 at 16:00 Meropenem/Sodium Chloride 50 ml @ 100 mls/hr Q12 IVPB Last administered on 08/04/18at 08:24; Admin Dose 100 MLS/HR; Start 08/03/18 at 16:00 Nystatin (Nystatin Susp) 5 ml QID PO Last administered on 08/04/18at 08:24; Admin Dose 5 ML; Start 08/03/18 at 17:00 LIANA LEA Aug 04, 2018 10:52
[2018-08-04 14:18] VITALS: BP 105/62; PULSE 85; RESP 16
--- NOTE | 2018-08-04 14:30 | PN ---
Date/Time of Note Date/Time of Note DATE: 08/04/18 TIME: 14:22 Assessment/Plan VTE Prophylaxis Risk score (from Nsg)>0 risk: 3 SCD applied (from Nsg): Yes Pharmacological prophylaxis: other Lines/Catheters IV Catheter Type (from Nrsg): Peripheral IV Urinary Cath still in place: No Assessment/Plan Hospital Course S: Patient had coronary CTA performed, now awaiting CT-guided tube placement for the hepatic abscess to be performed by IR later today. Less frequent fevers this morning. O: VS - see below PE: Gen: lying in bed in no acute distress Eyes: PERRL, no icterus HEENT: Clear oropharynx, moist mucous membranes Neck: No lymphadenopathy Card: Regular rate and rhythm, no murmurs Pulm: Clear to auscultation bilaterally Abd: RUQ well-healed cholecystostomy tube site. No guarding, no hepatosplenomegaly. Ext: No cyanosis/clubbing/edema CT abdomen pelvis with contrast: IMPRESSION: Distended inflamed gallbladder with multiple loculated pericholecystic and surrounding intrahepatic abscesses. CTA of the coronary arteries: IMPRESSION: Total calcium score: 0 RCA: Normal. LM: Normal. LAD: Normal. LCX: Normal. Assessment and plan: 38-year-old female who presents with: #Sepsis- Suspect source is pericholecystic fluid/abscess. Now awaiting hepatic drainage placement by IR. -Follow-up results of UA and culture, blood cultures -Again follow-up results of IR guided drainage -Appreciate ID recommendations, for now continue aztreonam and continue metronidazole (PCN allergy) -Continue IV fluids #Pericholecystic fluid with small hepatic abscesses-again presently on antibiotics, surgery team on the case as well as ID -Per surgery team, again plan today is to proceed with IR guided drainage later today - If not successful, may need transfer to higher level of care for hepatobiliary surgery. -Monitor LFTs in a.m. as well #Chest pain-resolving now, cardiology team on the case for possible abnormal stress test performed earlier; cardiac CTA results reviewed -No present issues, continue to monitor for now #Headache-head CT negative for any acute findings -Continue monitor for now DVT: SCDs GI: None Result Diagram: 08/04/18 0520 08/04/18 0520 Results 24hrs Laboratory Tests Test 08/04/18 05:20 08/04/18 13:10 White Blood Count 14.0 H Red Blood Count 3.95 L Hemoglobin 10.6 L Hematocrit 33.2 L Mean Corpuscular Volume 84.1 Mean Corpuscular Hemoglobin 26.8 L Mean Corpuscular Hemoglobin Concent 31.9 L Red Cell Distribution Width 13.6 Platelet Count 387 Mean Platelet Volume 9.3 Immature Granulocytes % 0.600 H Neutrophils % 75.6 Lymphocytes % 11.3 L Monocytes % 7.2 Eosinophils % 4.8 Basophils % 0.5 Nucleated Red Blood Cells % 0.0 Immature Granulocytes # 0.090 H Neutrophils # 10.6 H Lymphocytes # 1.6 Monocytes # 1.0 H Eosinophils # 0.7 H Basophils # 0.1 Nucleated Red Blood Cells # 0.0 Sodium Level 139 Potassium Level 3.4 L Chloride Level 103 Carbon Dioxide Level 25 Anion Gap 11 Blood Urea Nitrogen 7 Creatinine 0.52 Est Glomerular Filtrat Rate mL/min > 60 Glucose Level 107 Calcium Level 9.0 Total Bilirubin 0.1 L Direct Bilirubin 0.00 Indirect Bilirubin 0.1 Aspartate Amino Transf (AST/SGOT) 31 Alanine Aminotransferase (ALT/SGPT) 58 Alkaline Phosphatase 259 H Total Protein 7.6 Albumin 3.6 Globulin 4.00 H Albumin/Globulin Ratio 0.90 Prothrombin Time 14.7 Prothrombin Time Ratio 1.1 INR International Normalized Ratio 1.14 Activated Partial Thromboplast Time 35.6 H Exam/Review of Systems Exam Vitals Vital Signs Date Temp Pulse Resp B/P (MAP) Pulse Ox O2 O2 Flow FiO2 Time Delivery Rate 08/04/18 99.2 85 16 105/62 95 14:18 (76) 08/03/18 Room Air 08:05 Intake and Output 08/03/18 08/03/18 08/04/18 1515:00 23:00 07:00 IntakeIntake Total 200 ml 200 ml 1375 ml BalanceBalance 200 ml 200 ml 1375 ml Results Results 24hrs Laboratory Tests Test 08/04/18 05:20 08/04/18 13:10 White Blood Count 14.0 H Red Blood Count 3.95 L Hemoglobin 10.6 L Hematocrit 33.2 L Mean Corpuscular Volume 84.1 Mean Corpuscular Hemoglobin 26.8 L Mean Corpuscular Hemoglobin Concent 31.9 L Red Cell Distribution Width 13.6 Platelet Count 387 Mean Platelet Volume 9.3 Immature Granulocytes % 0.600 H Neutrophils % 75.6 Lymphocytes % 11.3 L Monocytes % 7.2 Eosinophils % 4.8 Basophils % 0.5 Nucleated Red Blood Cells % 0.0 Immature Granulocytes # 0.090 H Neutrophils # 10.6 H Lymphocytes # 1.6 Monocytes # 1.0 H Eosinophils # 0.7 H Basophils # 0.1 Nucleated Red Blood Cells # 0.0 Sodium Level 139 Potassium Level 3.4 L Chloride Level 103 Carbon Dioxide Level 25 Anion Gap 11 Blood Urea Nitrogen 7 Creatinine 0.52 Est Glomerular Filtrat Rate mL/min > 60 Glucose Level 107 Calcium Level 9.0 Total Bilirubin 0.1 L Direct Bilirubin 0.00 Indirect Bilirubin 0.1 Aspartate Amino Transf (AST/SGOT) 31 Alanine Aminotransferase (ALT/SGPT) 58 Alkaline Phosphatase 259 H Total Protein 7.6 Albumin 3.6 Globulin 4.00 H Albumin/Globulin Ratio 0.90 Prothrombin Time 14.7 Prothrombin Time Ratio 1.1 INR International Normalized Ratio 1.14 Activated Partial Thromboplast Time 35.6 H Medications Medication Current Medications IV Flush (NS 3 ml) 3 ml PER PROTOCOL IV ; Start 08/01/18 at 19:30 Ondansetron HCl (Zofran Inj) 4 mg Q6H PRN IV NAUSEA/VOMITING Last administered on 08/01/18 21:34; Admin Dose 4 MG; Start 08/01/18 at 19:30 Acetaminophen (Tylenol Tab) 650 mg Q6H PRN PO .PAIN 1-3 OR TEMP Last administered on 08/04/18 13:20; Admin Dose 650 MG; Start 08/01/18 at 19:30 Acetaminophen/ Hydrocodone Bitart ([place] (5/325)) 1 tab Q6H PRN PO .MOD PAIN 4- 6 Last administered on 08/02/18 18:28; Admin Dose 1 TAB; Start 08/01/18 at 19:30 Pantoprazole (Protonix Iv) 40 mg DAILY@06 IV Last administered on 08/04/18 05:36; Admin Dose 40 MG; Start 08/02/18 at 06:00 Metronidazole 100 ml @ 100 mls/hr Q8 IVPB Last administered on 08/04/18 13 :21; Admin Dose 100 MLS/HR; Start 08/01/18 at 22:00 Dextrose/Sodium Chloride 1,000 ml @ 75 mls/hr [id number] IV Last administered on 08/04/18at 05:36; Admin Dose 75 MLS/HR; Start 08/02/18 at 16:00 Meropenem/Sodium Chloride 50 ml @ 100 mls/hr Q12 IVPB Last administered on 08/04/18at 08:24; Admin Dose 100 MLS/HR; Start 08/03/18 at 16:00 Nystatin (Nystatin Susp) 5 ml QID PO Last administered on 08/04/18at 13:20; Admin Dose 5 ML; Start 08/03/18 at 17:00 KEAGAN ELENA Aug 04, 2018 14:30
[2018-08-04] MEDS ORDERED: MIDAZOLAM 1 MG/ML 2 ML INJ ONE (15:45)
[2018-08-04] MEDS ORDERED: FENTAnyl 50 MCG/ML VIAL ONE (15:45)
[2018-08-04] MEDS ORDERED: SOD CHLORIDE 0.9% 500 ML ONE (15:45)
[2018-08-04] MEDS ORDERED: LIDOCAINE 1% (MPF) 5 ML VIAL ONE (15:45)
--- NOTE | 2018-08-04 16:24 | CONS ---
Assessment/Plan Assessment/Plan Hospital Course (Demo Recall) Patient looks comfortable. Still with ongoing low-grade fevers, T-max 100.2. WBC 14 platelets 387 neutrophils 75.6 BUN 7 creatinine 0.52 WBC 12.8 platelets 368 neutrophils 75.1 BUN 9 creatinine 0.[address] abdomen and pelvis revealed distended inflamed gallbladder with multiple loculated pericholecystic and surrounding intrahepatic abscesses Antimicrobials: Merrem Flagyl Allergy: Penicillin Physical examination: Well-developed middle-aged woman in no distress. Head atraumatic normocephalic neck is supple chest rise symmetrical, breath sounds diminished bases. Heart: S1-S2. Abdomen soft guarded on palpation bowel sounds present. Extremities without cyanosis. Assessment: 1. Sepsis, present on admission 2. Gallbladder/hepatic abscesses 3. Oral candidiasis 4. UTI per urinalysis Plan: Patient is clinically stable, pending IR guided drainage Consultation Date/Type/Reason Admit Date/Time Aug 01, 2018 at 17:50 Initial Consult Date 08/03/18 Type of Consult id Requesting Provider: KEAGAN ELENA Date/Time of Note DATE: 08/04/18 TIME: 16:20 Exam/Review of Systems Exam Vitals Vital Signs Date Temp Pulse Resp B/P (MAP) Pulse Ox O2 O2 Flow FiO2 Time Delivery Rate 08/04/18 99.2 85 16 105/62 95 14:18 (76) 08/03/18 Room Air 08:05 Intake and Output 08/03/18 08/03/18 08/04/18 1515:00 23:00 07:00 IntakeIntake Total 200 ml 200 ml 1375 ml BalanceBalance 200 ml 200 ml 1375 ml Results Result Diagram: 08/04/18 0520 08/04/18 0520 Results 24hrs Laboratory Tests Test 08/04/18 05:20 08/04/18 13:10 White Blood Count 14.0 H Red Blood Count 3.95 L Hemoglobin 10.6 L Hematocrit 33.2 L Mean Corpuscular Volume 84.1 Mean Corpuscular Hemoglobin 26.8 L Mean Corpuscular Hemoglobin Concent 31.9 L Red Cell Distribution Width 13.6 Platelet Count 387 Mean Platelet Volume 9.3 Immature Granulocytes % 0.600 H Neutrophils % 75.6 Lymphocytes % 11.3 L Monocytes % 7.2 Eosinophils % 4.8 Basophils % 0.5 Nucleated Red Blood Cells % 0.0 Immature Granulocytes # 0.090 H Neutrophils # 10.6 H Lymphocytes # 1.6 Monocytes # 1.0 H Eosinophils # 0.7 H Basophils # 0.1 Nucleated Red Blood Cells # 0.0 Sodium Level 139 Potassium Level 3.4 L Chloride Level 103 Carbon Dioxide Level 25 Anion Gap 11 Blood Urea Nitrogen 7 Creatinine 0.52 Est Glomerular Filtrat Rate mL/min > 60 Glucose Level 107 Calcium Level 9.0 Total Bilirubin 0.1 L Direct Bilirubin 0.00 Indirect Bilirubin 0.1 Aspartate Amino Transf (AST/SGOT) 31 Alanine Aminotransferase (ALT/SGPT) 58 Alkaline Phosphatase 259 H Total Protein 7.6 Albumin 3.6 Globulin 4.00 H Albumin/Globulin Ratio 0.90 Prothrombin Time 14.7 Prothrombin Time Ratio 1.1 INR International Normalized Ratio 1.14 Activated Partial Thromboplast Time 35.6 H Medications Medication Current Medications IV Flush (NS 3 ml) 3 ml PER PROTOCOL IV ; Start 08/01/18 at 19:30 Ondansetron HCl (Zofran Inj) 4 mg Q6H PRN IV NAUSEA/VOMITING Last administered on 08/01/18 21:34; Admin Dose 4 MG; Start 08/01/18 at 19:30 Acetaminophen (Tylenol Tab) 650 mg Q6H PRN PO .PAIN 1-3 OR TEMP Last administered on 08/04/18 13:20; Admin Dose 650 MG; Start 08/01/18 at 19:30 Acetaminophen/ Hydrocodone Bitart ([place] (5/325)) 1 tab Q6H PRN PO .MOD PAIN 4- 6 Last administered on 08/02/18 18:28; Admin Dose 1 TAB; Start 08/01/18 at 19:30 Pantoprazole (Protonix Iv) 40 mg DAILY@06 IV Last administered on 08/04/18 05:36; Admin Dose 40 MG; Start 08/02/18 at 06:00 Metronidazole 100 ml @ 100 mls/hr Q8 IVPB Last administered on 08/04/18 13:21; Admin Dose 100 MLS/HR; Start 08/01/18 at 22:00 Dextrose/Sodium Chloride 1,000 ml @ 75 mls/hr [id number] IV Last administered on 08/04/18 05:36; Admin Dose 75 MLS/HR; Start 08/02/18 at 16:00 Meropenem/Sodium Chloride 50 ml @ 100 mls/hr Q12 IVPB Last administered on 08/04/18at 08:24; Admin Dose 100 MLS/HR; Start 08/03/18 at 16:00 Nystatin (Nystatin Susp) 5 ml QID PO Last administered on 08/04/18at 13:20; Admin Dose 5 ML; Start 08/03/18 at 17:00 RICKEY QUINTANA NP Aug 04, 2018 16:24
--- NOTE | 2018-08-04 17:20 | HPN ---
Date/Time of Note Date/Time of Note DATE: 08/04/18 TIME: 17:20 Interval H&P Admission Note Pt. seen H&P reviewed: No system changes MITUL VASQUEZ MD Aug 04, 2018 17:20
[2018-08-04] MEDS: HYDROCODONE/APAP (5/325) TAB PO PRN (19:04)
[2018-08-04 20:00] VITALS: BP 107/63; PULSE 91; RESP 18
[2018-08-05] MEDS: DEXTROSE 5%-0.45% NACL 1,000 ML IV SCH ×3 (01:44→19:52)
[2018-08-05] MEDS: HYDROCODONE/APAP (5/325) TAB PO PRN ×3 (01:44→19:19)
[2018-08-05] MEDS: ONDANSETRON 4 MG INJ IV PRN ×2 (01:52→19:57)
[2018-08-05 02:00] VITALS: BP 121/68; PULSE 107; RESP 18
[2018-08-05] MEDS: Metronidazole 500 MG in NS 100 ML IVPB SCH ×2 (06:12→14:16)
[2018-08-05] MEDS: PANTOPRAZOLE 40 MG INJ IV SCH (06:12)
[2018-08-05 08:15] VITALS: BP 119/69; PULSE 110; RESP 16
[2018-08-05] MEDS: ACETAMINOPHEN 325 MG TAB PO PRN ×2 (08:31→14:31)
[2018-08-05] MEDS: MEROPENEM 1 GM/50ML(PMX) 50 ML IVPB SCH ×2 (09:09→20:19)
[2018-08-05] MEDS: NYSTATIN SUSP 5 ML CUP PO SCH ×4 (09:09→20:19)
--- NOTE | 2018-08-05 09:57 | PN ---
Date/Time of Note Date/Time of Note DATE: 08/05/18 TIME: 09:55 Assessment/Plan VTE Prophylaxis Risk score (from Nsg)>0 risk: 3 SCD applied (from Nsg): Yes Pharmacological prophylaxis: other Lines/Catheters IV Catheter Type (from Nrsg): Peripheral IV Urinary Cath still in place: No Assessment/Plan Hospital Course S: Patient had CT-guided tube placement for the hepatic abscess to be performed by IR yesterday. Still having some fevers overnight, T-max 103.1. CBC this morning is pending. Patient still having some mild abdominal distress. O: VS - see below PE: Gen: lying in bed in no acute distress Eyes: PERRL, no icterus HEENT: Clear oropharynx, moist mucous membranes Neck: No lymphadenopathy Card: Regular rate and rhythm, no murmurs Pulm: Clear to auscultation bilaterally Abd: RUQ well-healed cholecystostomy tube site. No guarding, no hepatosplenomegaly. Ext: No cyanosis/clubbing/edema CT abdomen pelvis with contrast: IMPRESSION: Distended inflamed gallbladder with multiple loculated pericholecystic and surrounding intrahepatic abscesses. CTA of the coronary arteries: IMPRESSION: Total calcium score: 0 RCA: Normal. LM: Normal. LAD: Normal. LCX: Normal. Assessment and plan: 38-year-old female who presents with: #Sepsis- Suspect source is pericholecystic fluid/abscess. Now status post CT- guided hepatic drainage placement by IR yesterday. Still with fevers. -Follow-up results of UA and culture, blood cultures -Per surgery recognitions, continue to monitor drainage from drain site, also need to consider having patient transferred to higher level of care for hepatobiliary surgeon to evaluate patient given the complexity of the abscess in the hepatic area. Will attempt to contact consult hepatobiliary surgeon for that and see if they can evaluate the patient and consider for transfer. -Appreciate ID recommendations, for now continue aztreonam and continue metronidazole (PCN allergy) -Continue IV fluids #Pericholecystic fluid with small hepatic abscesses-again presently on antibiotics, surgery team on the case as well as ID -Per surgery team, again plan today is to proceed with IR guided drainage later today -Again, despite drain placement, may need transfer to higher level of care for hepatobiliary surgery. -Monitor LFTs #Chest pain-resolving now, cardiology team on the case for possible abnormal stress test performed earlier; cardiac CTA results reviewed -No present issues, continue to monitor for now #Headache-head CT negative for any acute findings -Continue monitor for now DVT: SCDs GI: None Result Diagram: 08/04/1851908/04/18519 Results 24hrs Laboratory Tests Test 08/04/18 13:10 Prothrombin Time 14.7 Prothrombin Time Ratio 1.1 INR International Normalized Ratio 1.14 Activated Partial Thromboplast Time 35.6 H Exam/Review of Systems Exam Vitals Vital Signs Date Temp Pulse Resp B/P (MAP) Pulse Ox O2 O2 Flow FiO2 Time Delivery Rate 08/05/18 100.6 09:16 08/05/18 110 16 119/69 95 Room Air 08:15 (86) Intake and Output 08/04/18 08/04/18 08/05/18 1515:00 23:00 07:00 IntakeIntake Total 150 ml 550 ml 800 ml OutputOutput Total 10 ml 300 ml BalanceBalance 150 ml 540 ml 500 ml Results Results 24hrs Laboratory Tests Test 08/04/18 13:10 Prothrombin Time 14.7 Prothrombin Time Ratio 1.1 INR International Normalized Ratio 1.14 Activated Partial Thromboplast Time 35.6 H Medications Medication Current Medications IV Flush (NS 3 ml) 3 ml PER PROTOCOL IV ; Start 08/01/18 at 19:30 Ondansetron HCl (Zofran Inj) 4 mg Q6H PRN IV NAUSEA/VOMITING Last administered on 08/05/18at 01:52; Admin Dose 4 MG; Start 08/01/18 at 19:30 Acetaminophen (Tylenol Tab) 650 mg Q6H PRN PO .PAIN 1-3 OR TEMP Last administer ed on 08/05/18at 08:31; Admin Dose 650 MG; Start 08/01/18 at 19:30 Acetaminophen/ Hydrocodone Bitart ([place] (5/325)) 1 tab Q6H PRN PO .MOD PAIN 4- 6 Last administered on 08/05/18at 01:44; Admin Dose 1 TAB; Start 08/01/18 at 19:30 Pantoprazole (Protonix Iv) 40 mg DAILY@06 IV Last administered on 08/05/18at 06:12; Admin Dose 40 MG; Start 08/02/18 at 06:00 Metronidazole 100 ml @ 100 mls/hr Q8 IVPB Last administered on 08/05/18 06:12; Admin Dose 100 MLS/HR; Start 08/01/18 at 22:00 Dextrose/Sodium Chloride 1,000 ml @ 75 mls/hr [id number] IV Last administered on 08/05/18 01:44; Admin Dose 75 MLS/HR; Start 08/02/18 at 16:00 Meropenem/Sodium Chloride 50 ml @ 100 mls/hr Q12 IVPB Last administered on 08/05/18 09:09; Admin Dose 100 MLS/HR; Start 08/03/18 at 16:00 Nystatin (Nystatin Susp) 5 ml QID PO Last administered on 08/05/18 09:09; Admin Dose 5 ML; Start 08/03/18 at 17:00 KEAGAN ELENA Aug 05, 2018 09:57
[2018-08-05] MEDS: DOCUSATE SODIUM 100 MG CAP PO SCH ×2 (10:43→20:19)
[2018-08-05] MEDS ORDERED: VANCOMYCIN IV PER PHARMACY XX SCH (11:30)
[2018-08-05] MEDS ORDERED: VANCOMYCIN HCL 1.5 GM in SOD CHLORIDE 0.9% 250 ML IVPB SCH (14:00)
[2018-08-05] MEDS: FLUCONAZOLE 100 MG/50 ML (PMX) 50 ML IVPB SCH (14:16)
--- NOTE | 2018-08-05 14:23 | PN ---
Date/Time of Note Date/Time of Note DATE: 08/05/18 TIME: 13:58 Assessment/Plan Lines/Catheters IV Catheter Type (from [facility]): Peripheral IV Galvez in Place (from [facility]): No Assessment/Plan Chief Complaint/Hosp Course 1. Hx of cholecystitis, symptomatic cholelithiasis, s/p IR cholecystostomy drain 05/29; Returns with Cholecystitis, pericholecystic and intrahepatic abscesses: s/p ashleigh drain 08/04/18; Continues to have fevers -Continue drain -HBS consult -abx per ID 2. Leukocytosis, -As above 3. Abnormal reversible stress test hx, recent nl CTA; cleared per cards -Cardiac optimization and eventual cath 4. Obesity: BMI: 31 -diet and exercise optimization -encourage weight loss 5. Eczema: -Medical management 6. Hypochromic anemia: no overt bleed -monitor and tx as needed -w/u per med team 7. Transaminitis: improved -monitor -as above Thank you. Patient seen and examined in collaboration with Dr. Onesimo Fleming. Subjective 24 Hr Interval Summary Min abdominal tenderness. WBC uptrending. S/p ashleigh drain. Fevers. No chills, sob, congested cough, cp, palpitations, joseph, dizziness, n/v/d/dysuria. Exam/Review of Systems Vital Signs Vitals Vital Signs Date Temp Pulse Resp B/P (MAP) Pulse Ox O2 O2 Flow FiO2 Time Delivery Rate 08/05/18 100.6 09:16 08/05/18 110 16 119/69 95 Room Air 08:15 (86) Intake and Output 08/04/18 08/04/18 08/05/18 1515:00 23:00 07:00 IntakeIntake Total 150 ml 550 ml 800 ml OutputOutput Total 10 ml 300 ml BalanceBalance 150 ml 540 ml 500 ml Exam Free Text/Dictation Constitutional: alert, oriented, well developed Psych: nl mood/affect, anxiety Head: normocephalic, atraumatic Eyes: nl conjunctiva, EOMI, nl sclera ENMT: nl external ears & nose, nl lips & teeth, mucosa pink and moist Neck: supple, non-tender; No jvd Respiratory: normal air movement; No congested cough, No labored breathing Cardiovascular: regular rate and rhythm, nl pulses Gastrointestinal: soft, NT. Cholecystostomy drain-bilious drainage, min abdominal tenderness. No distended Genitourinary - Female: nl external genitalia Musculoskeletal: nl extremities to inspection, nl gait and stance Extremities: normal pulses Neurological: nl mental status, nl speech, nl strength Skin: eczema Results Result Diagram: 08/05/18 1013 08/05/18 1013 ART CAMARGO NP Aug 05, 2018 14:08
[2018-08-05 14:37] VITALS: BP 126/76; PULSE 98; RESP 18
--- NOTE | 2018-08-05 16:28 | CONS ---
Assessment/Plan Assessment/Plan Hospital Course (Demo Recall) Status post IR guided cholecystostomy tube placement looks comfortable with ongoing fevers, T-max 102.2 Antimicrobials: Vanco, fluconazole, meropenem, Flagyl. Allergy: Penicillin Physical examination: Well-developed middle-aged woman in no distress. Head atraumatic normocephalic neck is supple chest rise symmetrical, breath sounds diminished bases. Heart: S1-S2. Abdomen soft guarded on palpation bowel sounds present. Extremities without cyanosis. Assessment: 1. Sepsis, present on admission, with ongoing fevers 2. Gallbladder/hepatic abscesses, status post cholecystostomy tube placement 3. Oral candidiasis 4. UTI per urinalysis Plan: Antibiotics were broadened secondary to ongoing fevers, will discontinue Flagyl, repeat blood cultures and if fevers persist consider repeat CT abdomen, f/u fluid cx Consultation Date/Type/Reason Admit Date/Time Aug 01, 2018 at 17:50 Initial Consult Date 08/03/18 Type of Consult id Requesting Provider: KEAGAN ELENA Date/Time of Note DATE: 08/05/18 TIME: 16:27 Exam/Review of Systems Exam Vitals Vital Signs Date Temp Pulse Resp B/P (MAP) Pulse Ox O2 O2 Flow FiO2 Time Delivery Rate 08/05/18 100.3 16:23 08/05/18 98 18 126/76 95 Room Air 14:37 (93) Intake and Output 08/04/18 08/04/18 08/05/18 1515:00 23:00 07:00 IntakeIntake Total 150 ml 550 ml 800 ml OutputOutput Total 10 ml 300 ml BalanceBalance 150 ml 540 ml 500 ml Results Result Diagram: 08/05/18 1013 08/05/18 1013 Results 24hrs Laboratory Tests Test 08/05/18 10:13 White Blood Count 17.7 #H Red Blood Count 4.14 L Hemoglobin 11.0 L Hematocrit 34.0 L Mean Corpuscular Volume 82.1 Mean Corpuscular Hemoglobin 26.6 L Mean Corpuscular Hemoglobin Concent 32.4 Red Cell Distribution Width 13.9 Platelet Count 431 H Mean Platelet Volume 9.2 Immature Granulocytes % 0.600 H Neutrophils % 89.8 H Lymphocytes % 5.0 L Monocytes % 3.7 Eosinophils % 0.6 Basophils % 0.3 Nucleated Red Blood Cells % 0.0 Immature Granulocytes # 0.100 H Neutrophils # 15.9 H Lymphocytes # 0.9 Monocytes # 0.7 Eosinophils # 0.1 Basophils # 0.1 Nucleated Red Blood Cells # 0.0 Sodium Level 135 Potassium Level 3.3 L Chloride Level 99 Carbon Dioxide Level 25 Anion Gap 11 Blood Urea Nitrogen 9 Creatinine 0.50 Est Glomerular Filtrat Rate mL/min > 60 Glucose Level 156 Calcium Level 8.6 Medications Medication Current Medications IV Flush (NS 3 ml) 3 ml PER PROTOCOL IV ; Start 08/01/18 at 19:30 Ondansetron HCl (Zofran Inj) 4 mg Q6H PRN IV NAUSEA/VOMITING Last administered on 08/05/18 01:52; Admin Dose 4 MG; Start 08/01/18 at 19:30 Acetaminophen (Tylenol Tab) 650 mg Q6H PRN PO .PAIN 1-3 OR TEMP Last administered on 08/05/18 14:31; Admin Dose 650 MG; Start 08/01/18 at 19:30 Acetaminophen/ Hydrocodone Bitart ([place] (5/325)) 1 tab Q6H PRN PO .MOD PAIN 4- 6 Last administered on 08/05/18 10:39; Admin Dose 1 TAB; Start 08/01/18 at 19:30 Pantoprazole (Protonix Iv) 40 mg DAILY@06 IV Last administered on 08/05/18 06:12; Admin Dose 40 MG; Start 08/02/18 at 06:00 Metronidazole 100 ml @ 100 mls/hr Q8 IVPB Last administered on 08/05/18 14:16; Admin Dose 100 MLS/HR; Start 08/01/18 at 22:00 Dextrose/Sodium Chloride 1,000 ml @ 75 mls/hr [id number] IV Last administered on 08/05/18 01:44; Admin Dose 75 MLS/HR; Start 08/02/18 at 16:00 Meropenem/Sodium Chloride 50 ml @ 100 mls/hr Q12 IVPB Last administered on 08/05/18 09:09; Admin Dose 100 MLS/HR; Start 08/03/18 at 16:00 Nystatin (Nystatin Susp) 5 ml QID PO Last administered on 08/05/18 12:29; Admin Dose 5 ML; Start 08/03/18 at 17:00 Docusate Sodium (Colace) 100 mg BID PO Last administered on 08/05/18at 10:43; Admin Dose 100 MG; Start 08/05/18 at 10:30 Vancomycin HCl (Vanco Iv Per Pharmacy) VANCOMYCIN PER PHARMACY PER PROTOCOL XX ; Start 08/05/18 at 11:30 Fluconazole/ Sodium Chloride 50 ml @ 50 mls/hr Q24H IVPB Last administered on 08/05/18at 14:16; Admin Dose 50 MLS/HR; Start 08/05/18 at 13:00 Vancomycin HCl 1.5 gm/Sodium Chloride 250 ml @ 83.333 mls/ hr ONCE IVPB Last administered on 08/05/18at 15:41; Admin Dose 83.333 MLS/HR; Start 08/05/18 at 14:00; Stop 08/05/18 at 16:59 Vancomycin HCl 1.25 gm/Sodium Chloride 250 ml @ 83.333 mls/ hr Q8 IVPB ; Start 08/05/18 at 22:00 Miscellaneous Information (*Rx Drug Level Order Reminder*) VANCO TROUGH @ 1,300 ON... ONCE ONCE XX ; Start 08/06/18 at 13:00; Stop 08/06/18 at 13:01 RICKEY QUINTANA NP Aug 05, 2018 16:28
[2018-08-05 19:15] VITALS: BP 115/66; PULSE 103; RESP 20
[2018-08-05] MEDS: VANCOMYCIN HCL 1.25 GM in SOD CHLORIDE 0.9% 250 ML IVPB SCH (22:38)
[2018-08-06 02:05] VITALS: BP 103/61; PULSE 101; RESP 18
[2018-08-06] MEDS: ACETAMINOPHEN 325 MG TAB PO PRN ×2 (02:48→14:08)
[2018-08-06 03:36] VITALS: BP 128/77; PULSE 99; RESP 19
[2018-08-06] MEDS: PANTOPRAZOLE 40 MG INJ IV SCH (05:27)
[2018-08-06] MEDS: VANCOMYCIN HCL 1.25 GM in SOD CHLORIDE 0.9% 250 ML IVPB SCH ×2 (05:28→15:37)
[2018-08-06] MEDS: HYDROCODONE/APAP (5/325) TAB PO PRN (05:33)
[2018-08-06] MEDS: NYSTATIN SUSP 5 ML CUP PO SCH ×4 (08:21→21:33)
[2018-08-06] MEDS: DOCUSATE SODIUM 100 MG CAP PO SCH ×2 (08:21→21:33)
[2018-08-06] MEDS: MEROPENEM 1 GM/50ML(PMX) 50 ML IVPB SCH ×2 (08:22→21:33)
[2018-08-06 08:26] VITALS: BP 98/59; RESP 18
--- NOTE | 2018-08-06 13:21 | CONS ---
Assessment/Plan Assessment/Plan Hospital Course (Demo Recall) Awake, continues to spike fevers. Status post IR guided cholecystostomy tube placement yesterday Antimicrobials: Vanco, fluconazole, meropenem Allergy: Penicillin Physical examination: Well-developed middle-aged woman in no distress. Head atraumatic normocephalic neck is supple chest rise symmetrical, breath sounds diminished bases. Heart: S1-S2. Abdomen soft guarded on palpation bowel sounds present. Extremities without cyanosis. Assessment: 1. Sepsis, present on admission, with ongoing fevers 2. Gallbladder/hepatic abscesses, status post cholecystostomy tube placement 3. Oral candidiasis 4. UTI per urinalysis Plan: Spiking fevers and looks ill, pending cx's, repeat CT abdomen Consultation Date/Type/Reason Admit Date/Time Aug 01, 2018 at 17:50 Initial Consult Date 08/03/18 Type of Consult id Requesting Provider: KEAGAN ELENA Date/Time of Note DATE: 08/06/18 TIME: 13:20 Exam/Review of Systems Exam Vitals Vital Signs Date Temp Pulse Resp B/P (MAP) Pulse Ox O2 O2 Flow FiO2 Time Delivery Rate 08/06/18 98.3 18 98/59 (72) 97 Room Air 08:26 08/06/18 99 03:36 Intake and Output 08/05/18 08/05/18 08/06/18 1515:00 23:00 07:00 IntakeIntake Total 550 ml 1575 ml 683.333 ml OutputOutput Total 350 ml 150 ml BalanceBalance 550 ml 1225 ml 533.333 ml Results Result Diagram: 08/06/18 0542 08/06/18 0542 Results 24hrs Laboratory Tests Test 08/06/18 05:42 White Blood Count 20.4 H Red Blood Count 3.87 L Hemoglobin 10.3 L Hematocrit 32.0 L Mean Corpuscular Volume 82.7 Mean Corpuscular Hemoglobin 26.6 L Mean Corpuscular Hemoglobin Concent 32.2 Red Cell Distribution Width 14.0 Platelet Count 426 H Mean Platelet Volume 9.1 Immature Granulocytes % 0.800 H Neutrophils % 83.9 H Lymphocytes % 7.8 L Monocytes % 4.3 Eosinophils % 2.8 Basophils % 0.4 Nucleated Red Blood Cells % 0.0 Immature Granulocytes # 0.170 H Neutrophils # 17.1 H Lymphocytes # 1.6 Monocytes # 0.9 Eosinophils # 0.6 H Basophils # 0.1 Nucleated Red Blood Cells # 0.0 Sodium Level 136 Potassium Level 3.3 L Chloride Level 99 Carbon Dioxide Level 27 Anion Gap 10 Blood Urea Nitrogen 7 Creatinine 0.54 Est Glomerular Filtrat Rate mL/min > 60 Glucose Level 120 Calcium Level 8.6 Phosphorus Level 3.2 Magnesium Level 2.0 Medications Medication Current Medications IV Flush (NS 3 ml) 3 ml PER PROTOCOL IV ; Start 08/01/18 at 19:30 Ondansetron HCl (Zofran Inj) 4 mg Q6H PRN IV NAUSEA/VOMITING Last administered on 08/05/18 19:57; Admin Dose 4 MG; Start 08/01/18 at 19:30 Acetaminophen (Tylenol Tab) 650 mg Q6H PRN PO .PAIN 1-3 OR TEMP Last administered on 08/06/18 02:48; Admin Dose 650 MG; Start 08/01/18 at 19:30 Acetaminophen/ Hydrocodone Bitart ([place] (5/325)) 1 tab Q6H PRN PO .MOD PAIN 4- 6 Last administered on 08/06/18 05:33; Admin Dose 1 TAB; Start 08/01/18 at 19:30 Pantoprazole (Protonix Iv) 40 mg DAILY@06 IV Last administered on 08/06/18 05:27; Admin Dose 40 MG; Start 08/02/18 at 06:00 Dextrose/Sodium Chloride 1,000 ml @ 75 mls/hr [id number] IV Last administered on 08/05/18 19:52; Admin Dose 75 MLS/HR; Start 08/02/18 at 16:00 Meropenem/Sodium Chloride 50 ml @ 100 mls/hr Q12 IVPB Last administered on 08/06/18 08:22; Admin Dose 100 MLS/HR; Start 08/03/18 at 16:00 Nystatin (Nystatin Susp) 5 ml QID PO Last administered on 08/06/18 08:21; Admin Dose 5 ML; Start 08/03/18 at 17:00 Docusate Sodium (Colace) 100 mg BID PO Last administered on 08/06/18 08:21; Admin Dose 100 MG; Start 08/05/18 at 10:30 Vancomycin HCl (Vanco Iv Per Pharmacy) VANCOMYCIN PER PHARMACY PER PROTOCOL XX ; Start 08/05/18 at 11:30 Fluconazole/ Sodium Chloride 50 ml @ 50 mls/hr Q24H IVPB Last administered on 08/05/18at 14:16; Admin Dose 50 MLS/HR; Start 08/05/18 at 13:00 Vancomycin HCl 1.25 gm/Sodium Chloride 250 ml @ 83.333 mls/ hr Q8 IVPB Last administered on 08/06/18at 05:28; Admin Dose 83.333 MLS/HR; Start 08/05/18 at 22:00 RICKEY QUINTANA NP Aug 06, 2018 13:21
[2018-08-06] MEDS: ONDANSETRON 4 MG INJ IV PRN (13:22)
[2018-08-06] MEDS: FLUCONAZOLE 100 MG/50 ML (PMX) 50 ML IVPB SCH (14:08)
[2018-08-06 14:32] VITALS: BP 110/60; PULSE 91; RESP 18
[2018-08-06] MEDS ORDERED: IOHEXOL 14.3 MG(I)/ML (ADULT) BTL PO ONE ×2 (15:30→16:30)
[2018-08-06] MEDS ORDERED: BARIUM SULF 2% 450 ML BTL (BERRY SMOOTHIE) PO ONE (15:30)
--- NOTE | 2018-08-06 15:36 | PN ---
Date/Time of Note Date/Time of Note DATE: 08/06/18 TIME: 15:31 Assessment/Plan Lines/Catheters IV Catheter Type (from [facility]): Peripheral IV Galvez in Place (from [facility]): No Assessment/Plan Chief Complaint/Hosp Course 1. Hx of cholecystitis, symptomatic cholelithiasis, s/p IR cholecystostomy drain 05/29; Returns with Cholecystitis, pericholecystic and intrahepatic a bscesses: s/p ashleigh drain 08/04/18; Continues to have fevers -Continue drain -HBS consult pending -Transfer to higher level of care/tertiary center -abx per ID 2. Leukocytosis uptrending -As above 3. Abnormal reversible stress test hx, recent nl CTA; cleared per cards -Cardiac optimization and eventual cath 4. Obesity: BMI: 31 -diet and exercise optimization -encourage weight loss 5. Eczema: -Medical management 6. Hypochromic anemia: no overt bleed -monitor and tx as needed -w/u per med team 7. Transaminitis: improved -monitor -as above Thank you. Patient seen and examined in collaboration with Dr. Onesimo Fleming. Subjective 24 Hr Interval Summary Abdominal tenderness. Continues to have fevers. WBC uptrending. No chills, sob, congested cough, cp, palpitations, joseph, dizziness, nausea, vomiting, diarrhea, dysuria. Exam/Review of Systems Vital Signs Vitals Vital Signs Date Temp Pulse Resp B/P (MAP) Pulse Ox O2 O2 Flow FiO2 Time Delivery Rate 08/06/18 100.5 91 18 110/60 97 Room Air 14:32 (77) Intake and Output 08/05/18 08/05/18 08/06/18 1515:00 23:00 07:00 IntakeIntake Total 550 ml 1575 ml 683.333 ml OutputOutput Total 350 ml 150 ml BalanceBalance 550 ml 1225 ml 533.333 ml Exam Free Text/Dictation Constitutional: alert, oriented, well developed Psych: anxiety Head: normocephalic, atraumatic Eyes: nl conjunctiva, EOMI, nl sclera ENMT: nl external ears & nose, nl lips & teeth, mucosa pink and moist Neck: supple, non-tender; No jvd Respiratory: normal air movement; No congested cough, No labored breathing Cardiovascular: regular rate and rhythm, nl pulses Gastrointestinal: soft, distended Cholecystostomy drain-bilious drainage, abdominal tenderness (right upper quadrant). Genitourinary - Female: nl external genitalia Musculoskeletal: nl extremities to inspection, nl gait and stance Extremities: normal pulses Neurological: nl mental status, nl speech, nl strength Skin: eczema Results Result Diagram: 08/06/18 0542 08/06/18 0542 ART CAMARGO NP Aug 06, 2018 15:36
--- NOTE | 2018-08-06 16:00 | PN ---
Date/Time of Note Date/Time of Note DATE: 08/06/18 TIME: 15:56 Assessment/Plan VTE Prophylaxis Risk score (from Nsg)>0 risk: 3 SCD applied (from Nsg): Yes Pharmacological prophylaxis: other Lines/Catheters IV Catheter Type (from Nrsg): Peripheral IV Urinary Cath still in place: No Assessment/Plan Hospital Course S: Patient with higher white blood cell count today is still having fevers. Seen by ID team earlier today as well as surgery team. O: VS - see below PE: Gen: lying in bed in no acute distress Eyes: PERRL, no icterus HEENT: Clear oropharynx, moist mucous membranes Neck: No lymphadenopathy Card: Regular rate and rhythm, no murmurs Pulm: Clear to auscultation bilaterally Abd: RUQ well-healed cholecystostomy tube site. No guarding, no hepatosplenomegaly. Ext: No cyanosis/clubbing/edema CT abdomen pelvis with contrast: IMPRESSION: Distended inflamed gallbladder with multiple loculated pericholecystic and surrounding intrahepatic abscesses. CTA of the coronary arteries: IMPRESSION: Total calcium score: 0 RCA: Normal. LM: Normal. LAD: Normal. LCX: Normal. Assessment and plan: 38-year-old female who presents with: #Sepsis- Suspect source is pericholecystic fluid/abscess. Now status post CT- guided hepatic drainage placement by IR 2 days ago, but still with fevers. -Follow-up results of UA and culture, blood cultures -Per surgery recognitions, continue to monitor drainage from drain site, per discussion with surgery team today, given patient's worsening fever and leukocytosis despite drain placement, now will plan for attempt to transfer to [facility] level of care to be under the service of hepatobiliary surgery team -Case management is working on that. We will also formally request hepatobiliary surgery consult if that can be performed while the patient still here in the hospital. -Appreciate ID recommendations, for now continue Vanco, fluconazole, meropenem -Continue IV fluids #Pericholecystic fluid with small hepatic abscesses-again presently on antibiotics, surgery team on the case as well as ID -Per surgery team, again plan today is to proceed with IR guided drainage later today -Again, despite drain placement, may need transfer to higher level of care for hepatobiliary surgery. -Monitor LFTs #Chest pain-resolving now, cardiology team on the case for possible abnormal stress test performed earlier; cardiac CTA results reviewed -No present issues, continue to monitor for now #Headache-head CT negative for any acute findings -Continue monitor for now DVT: SCDs GI: None Result Diagram: 08/06/18 0542 08/06/18 0542 Results 24hrs Laboratory Tests Test 08/06/18 05:42 08/06/18 13:17 White Blood Count 20.4 H Red Blood Count 3.87 L Hemoglobin 10.3 L Hematocrit 32.0 L Mean Corpuscular Volume 82.7 Mean Corpuscular Hemoglobin 26.6 L Mean Corpuscular Hemoglobin Concent 32.2 Red Cell Distribution Width 14.0 Platelet Count 426 H Mean Platelet Volume 9.1 Immature Granulocytes % 0.800 H Neutrophils % 83.9 H Lymphocytes % 7.8 L Monocytes % 4.3 Eosinophils % 2.8 Basophils % 0.4 Nucleated Red Blood Cells % 0.0 Immature Granulocytes # 0.170 H Neutrophils # 17.1 H Lymphocytes # 1.6 Monocytes # 0.9 Eosinophils # 0.6 H Basophils # 0.1 Nucleated Red Blood Cells # 0.0 Sodium Level 136 Potassium Level 3.3 L Chloride Level 99 Carbon Dioxide Level 27 Anion Gap 10 Blood Urea Nitrogen 7 Creatinine 0.54 Est Glomerular Filtrat Rate mL/min > 60 Glucose Level 120 Calcium Level 8.6 Phosphorus Level 3.2 Magnesium Level 2.0 Vancomycin Level Trough 10.3 Exam/Review of Systems Exam Vitals Vital Signs Date Temp Pulse Resp B/P (MAP) Pulse Ox O2 O2 Flow FiO2 Time Delivery Rate 08/06/18 100.3 14:53 08/06/18 91 18 110/60 97 Room Air 14:32 (77) Intake and Output 08/05/18 08/05/18 08/06/18 1515:00 23:00 07:00 IntakeIntake Total 550 ml 1575 ml 683.333 ml OutputOutput Total 350 ml 150 ml BalanceBalance 550 ml 1225 ml 533.333 ml Results Results 24hrs Laboratory Tests Test 08/06/18 05:42 08/06/18 13:17 White Blood Count 20.4 H Red Blood Count 3.87 L Hemoglobin 10.3 L Hematocrit 32.0 L Mean Corpuscular Volume 82.7 Mean Corpuscular Hemoglobin 26.6 L Mean Corpuscular Hemoglobin Concent 32.2 Red Cell Distribution Width 14.0 Platelet Count 426 H Mean Platelet Volume 9.1 Immature Granulocytes % 0.800 H Neutrophils % 83.9 H Lymphocytes % 7.8 L Monocytes % 4.3 Eosinophils % 2.8 Basophils % 0.4 Nucleated Red Blood Cells % 0.0 Immature Granulocytes # 0.170 H Neutrophils # 17.1 H Lymphocytes # 1.6 Monocytes # 0.9 Eosinophils # 0.6 H Basophils # 0.1 Nucleated Red Blood Cells # 0.0 Sodium Level 136 Potassium Level 3.3 L Chloride Level 99 Carbon Dioxide Level 27 Anion Gap 10 Blood Urea Nitrogen 7 Creatinine 0.54 Est Glomerular Filtrat Rate mL/min > 60 Glucose Level 120 Calcium Level 8.6 Phosphorus Level 3.2 Magnesium Level 2.0 Vancomycin Level Trough 10.3 Medications Medication Current Medications IV Flush (NS 3 ml) 3 ml PER PROTOCOL IV ; Start 08/01/18 at 19:30 Ondansetron HCl (Zofran Inj) 4 mg Q6H PRN IV NAUSEA/VOMITING Last administered on 08/06/18 13:22; Admin Dose 4 MG; Start 08/01/18 at 19:30 Acetaminophen (Tylenol Tab) 650 mg Q6H PRN PO .PAIN 1-3 OR TEMP Last administered on 08/06/18 14:08; Admin Dose 650 MG; Start 08/01/18 at 19:30 Acetaminophen/ Hydrocodone Bitart ([place] (5/325)) 1 tab Q6H PRN PO .MOD PAIN 4- 6 Last administered on 08/06/18 05:33; Admin Dose 1 TAB; Start 08/01/18 at 19:30 Pantoprazole (Protonix Iv) 40 mg DAILY@06 IV Last administered on 08/06/18 05:27; Admin Dose 40 MG; Start 08/02/18 at 06:00 Dextrose/Sodium Chloride 1,000 ml @ 75 mls/hr [id number] IV Last administered on 08/05/18 19:52; Admin Dose 75 MLS/HR; Start 08/02/18 at 16:00 Meropenem/Sodium Chloride 50 ml @ 100 mls/hr Q12 IVPB Last administered on 08/06/18 08:22; Admin Dose 100 MLS/HR; Start 08/03/18 at 16:00 Nystatin (Nystatin Susp) 5 ml QID PO Last administered on 08/06/18at 15:37; Admin Dose 5 ML; Start 08/03/18 at 17:00 Docusate Sodium (Colace) 100 mg BID PO Last administered on 08/06/18at 08:21; Adm in Dose 100 MG; Start 08/05/18 at 10:30 Vancomycin HCl (Vanco Iv Per Pharmacy) VANCOMYCIN PER PHARMACY PER PROTOCOL XX ; Start 08/05/18 at 11:30 Fluconazole/ Sodium Chloride 50 ml @ 50 mls/hr Q24H IVPB Last administered on 08/06/18at 14:08; Admin Dose 50 MLS/HR; Start 08/05/18 at 13:00 Vancomycin HCl 1.25 gm/Sodium Chloride 250 ml @ 83.333 mls/ hr Q8 IVPB Last administered on 08/06/18at 15:37; Admin Dose 83.333 MLS/HR; Start 08/05/18 at 22:00 Iohexol ((Gastrografin therapeutic equivalent)) 900 ml GIVE PIROR TO CT ONCE PO ; Start 08/06/18 at 16:30; Stop 08/06/18 at 16:31 KEAGAN ELENA Aug 06, 2018 16:00
--- NOTE | 2018-08-06 16:59 | PN ---
Date/Time of Note Date/Time of Note DATE: 08/06/18 TIME: 16:57 Assessment/Plan Lines/Catheters IV Catheter Type (from Nrs): Peripheral IV Galvez in Place (from Nrs): No Assessment/Plan Assessment/Plan Status post cholecystostomy and hepatic drain Fevers improving. WBC elevated today If WBC still elevated tomorrow, would repeat CT. However, I suspect WBC to come down as the drainage is now bilious and not purulent. Abscesses seem to be well drained. Subjective 24 Hr Interval Summary Constitutional: other (Feeling somewhat better. She has had low-grade fevers but overall states she feels better) Exam/Review of Systems Vital Signs Vitals Vital Signs Date Temp Pulse Resp B/P (MAP) Pulse Ox O2 O2 Flow FiO2 Time Delivery Rate 08/06/18 100.3 14:53 08/06/18 91 18 110/60 97 Room Air 14:32 (77) Intake and Output 08/05/18 08/05/18 08/06/18 1515:00 23:00 07:00 IntakeIntake Total 550 ml 1575 ml 683.333 ml OutputOutput Total 350 ml 150 ml BalanceBalance 550 ml 1225 ml 533.333 ml Exam Cardiovascular: regular rate and rhythm Gastrointestinal: soft, other (Some tenderness surrounding pigtail catheter drainage site) Results Result Diagram: 08/06/18 0542 08/06/18 0542 OSMAN YEH MD Aug 06, 2018 16:59
[2018-08-06] MEDS: DEXTROSE 5%-0.45% NACL 1,000 ML IV SCH (18:28)
[2018-08-06 19:32] VITALS: BP 119/68; PULSE 91; RESP 20
[2018-08-06] MEDS ORDERED: SOD CHLORIDE 0.9% 100 ML ONE (23:01)
[2018-08-06] MEDS ORDERED: IOHEXOL 300MG/ML 150 ML BTL ONE (23:01)
[2018-08-07] MEDS: VANCOMYCIN HCL 1.25 GM in SOD CHLORIDE 0.9% 250 ML IVPB SCH ×4 (00:15→22:05)
[2018-08-07 02:02] VITALS: BP 105/63; PULSE 104; RESP 17
[2018-08-07] MEDS: DEXTROSE 5%-0.45% NACL 1,000 ML IV SCH ×2 (02:40→16:00)
[2018-08-07 03:00] VITALS: PULSE 93
[2018-08-07] MEDS: ACETAMINOPHEN 325 MG TAB PO PRN (03:22)
[2018-08-07 04:00] VITALS: BP 113/59; PULSE 89; RESP 19
[2018-08-07] MEDS: PANTOPRAZOLE 40 MG INJ IV SCH (05:40)
[2018-08-07] MEDS: HYDROCODONE/APAP (5/325) TAB PO PRN ×2 (06:23→16:03)
[2018-08-07] MEDS ORDERED: MAGNESIUM HYDROXIDE 30ML CUP PO ONE (06:30)
[2018-08-07] MEDS ORDERED: MAGNESIUM HYDROXIDE 30ML CUP PO PRN (06:30)
[2018-08-07 07:47] VITALS: BP 95/62; PULSE 68; RESP 18
[2018-08-07] MEDS: MEROPENEM 1 GM/50ML(PMX) 50 ML IVPB SCH ×2 (08:18→20:36)
[2018-08-07] MEDS: NYSTATIN SUSP 5 ML CUP PO SCH ×4 (08:18→20:36)
[2018-08-07] MEDS: DOCUSATE SODIUM 100 MG CAP PO SCH ×2 (08:18→20:36)
--- NOTE | 2018-08-07 12:52 | CONS ---
Assessment/Plan Assessment/Plan Hospital Course (Demo Recall) ID PROGRESS NOTE CURRENT ABX: DAY #=> Vanco IV + Merrem + Diflucan 08/07/1845008/07/18450 24H INTERVAL SUMMARY * A/A/O, OOB->Chair w/hepatic drain in her lap draining brownish liquid * C/O ABD/back pain, facial grimacing w/movements * Defervescing well -- Tmax yesterday 100.5 - afebrile today -- > 48H since high fevers * Status post IR guided cholecystostomy tube placement with MICRO CX PENDING DIAGNOSTIC IMAGING * 08/06/18 Near Midnight last night CT: * 1. Interval placement of percutaneous cholecystostomy tube with tip coiled near the gallbladder neck. Slightly decreased gallbladder distension since prior exam. Persistent pericholecystic and intrahepatic fluid collections or abscesses are unchanged in size although small air bubbles are seen in some of the fluid collections likely related to tube placement. * 2. Postprocedural trace fluid and inflammation along the liver margin, the right pericolic gutter and right lateral subcutaneous abdominal wall. * 3. Bibasilar pulmonary consolidation and atelectasis with small right pleural effusion new since prior exam.. MICRO/OTHER * 08/05/18 BCx (-) * 08/03/18 Urine Cx URINE CULTURE Final Organism 1 MIXED GRAM POSITIVE ORGANISMS COLONY COUNT <10,000 CFU/ml * 08/01/18 Urine Cx (+) URINE CULTURE Final Organism 1 MIXED GRAM POSITIVE ORGANISMS COLONY COUNT 50,000 - 60,000 CFU/ml * 08/01/18 BCX (-) PHYSICAL EXAMINATION: GENERAL: VSS HEENT: AT, NC, anicteric NECK: Supple, CHEST: Equal chest rise bilaterally, without dyspnea on observation HEART: Pulse RRR ABDOMEN: Soft / NT EXTREMITIES: Warm, dry SKIN: No rash, no diaphoresis ID ASSESSMENT 38 yo F admit with: 1. Sepsis, present on admission, with ongoing fevers 2. Gallbladder/hepatic abscesses, status post cholecystostomy tube placement 3. Oral candidiasis 4. UTI per urinalysis (-)MRSA Nares ABX ALLERGIES: KNDA INVASIVES: PIV CURRENT ABX: DAY #Vanco IV + Merrem + Diflucan ID RECOMMENDATIONS/PLAN: 1. Continue current ABX 2. Micro Cx from placement Katerine-Tube drain pending -- ID RECONDITIONER colleague will f/u tomorrow. . Consultation Date/Type/Reason Admit Date/Time Aug 01, 2018 at 17:50 Initial Consult Date 08/03/18 Requesting Provider: KEAGAN ELENA Date/Time of Note DATE: 08/07/18 TIME: 12:52 Exam/Review of Systems Exam Vitals Vital Signs Date Temp Pulse Resp B/P (MAP) Pulse Ox O2 O2 Flow FiO2 Time Delivery Rate 08/07/18 98.2 68 18 95/62 (73) 96 Room Air 07:47 Intake and Output 08/06/18 08/06/18 08/07/18 1515:00 23:00 07:00 IntakeIntake Total 896.667 ml 1897.5 ml 625 ml OutputOutput Total 200 ml 150 ml BalanceBalance 696.667 ml 1897.5 ml 475 ml Results Result Diagram: 08/07/18 0451 08/07/18 0451 Results 24hrs Laboratory Tests Test 08/06/18 13:17 08/07/18 04:51 Vancomycin Level Trough 10.3 White Blood Count 18.8 H Red Blood Count 3.76 L Hemoglobin 9.9 L Hematocrit 31.5 L Mean Corpuscular Volume 83.8 Mean Corpuscular Hemoglobin 26.3 L Mean Corpuscular Hemoglobin Concent 31.4 L Red Cell Distribution Width 13.9 Platelet Count 496 H Mean Platelet Volume 9.2 Immature Granulocytes % 1.100 H Neutrophils % 81.3 H Lymphocytes % 8.7 L Monocytes % 4.7 Eosinophils % 3.8 Basophils % 0.4 Nucleated Red Blood Cells % 0.0 Immature Granulocytes # 0.200 H Neutrophils # 15.3 H Lymphocytes # 1.6 Monocytes # 0.9 Eosinophils # 0.7 H Basophils # 0.1 Nucleated Red Blood Cells # 0.0 Sodium Level 138 Potassium Level 3.5 Chloride Level 99 Carbon Dioxide Level 30 Anion Gap 9 Blood Urea Nitrogen 6 L Creatinine 0.51 Est Glomerular Filtrat Rate mL/min > 60 Glucose Level 114 Calcium Level 8.4 Medications Medication Current Medications IV Flush (NS 3 ml) 3 ml PER PROTOCOL IV ; Start 08/01/18 at 19:30 Ondansetron HCl (Zofran Inj) 4 mg Q6H PRN IV NAUSEA/VOMITING Last administered on 08/06/18 13:22; Admin Dose 4 MG; Start 08/01/18 at 19:30 Acetaminophen (Tylenol Tab) 650 mg Q6H PRN PO .PAIN 1-3 OR TEMP Last administered on 08/07/18 03:22; Admin Dose 650 MG; Start 08/01/18 at 19:30 Acetaminophen/ Hydrocodone Bitart ([place] (5/325)) 1 tab Q6H PRN PO .MOD PAIN 4- 6 Last administered on 08/07/18 06:23; Admin Dose 1 TAB; Start 08/01/18 at 19:30 Pantoprazole (Protonix Iv) 40 mg DAILY@06 IV Last administered on 08/07/18 05:40; Admin Dose 40 MG; Start 08/02/18 at 06:00 Dextrose/Sodium Chloride 1,000 ml @ 75 mls/hr [id number] IV Last administered on 08/06/18 18:28; Admin Dose 75 MLS/HR; Start 08/02/18 at 16:00 Meropenem/Sodium Chloride 50 ml @ 100 mls/hr Q12 IVPB Last administered on 08/07/18 08:18; Admin Dose 100 MLS/HR; Start 08/03/18 at 16:00 Nystatin (Nystatin Susp) 5 ml QID PO Last administered on 08/07/18 08:18; Admin Dose 5 ML; Start 08/03/18 at 17:00 Docusate Sodium (Colace) 100 mg BID PO Last administered on 08/07/18 08:18; Admin Dose 100 MG; Start 08/05/18 at 10:30 Vancomycin HCl (Vanco Iv Per Pharmacy) VANCOMYCIN PER PHARMACY PER PROTOCOL XX ; Start 08/05/18 at 11:30 Fluconazole/ Sodium Chloride 50 ml @ 50 mls/hr Q24H IVPB Last administered on 08/06/18 14:08; Admin Dose 50 MLS/HR; Start 08/05/18 at 13:00 Vancomycin HCl 1.25 gm/Sodium Chloride 250 ml @ 83.333 mls/ hr Q8 IVPB Last administered on 08/07/18 06:23; Admin Dose 83.333 MLS/HR; Start 08/05/18 at 22:00 Magnesium Hydroxide (Milk Of Mag) 30 ml BID PRN PO CONSTIPATION; Start 08/07/18 at 06:30 MEDARDO HASSAN NP Aug 07, 2018 12:52
[2018-08-07] MEDS: FLUCONAZOLE 100 MG/50 ML (PMX) 50 ML IVPB SCH (13:36)
--- NOTE | 2018-08-07 14:19 | PN ---
Date/Time of Note Date/Time of Note DATE: 08/07/18 TIME: 14:17 Assessment/Plan Lines/Catheters IV Catheter Type (from Nrs): Peripheral IV Galvez in Place (from Nrs): No Assessment/Plan Assessment/Plan Essentially afebrile for 48 hours. White count slightly decreased. Heart rate within normal limits. CT shows mild improvement but cholecystostomy tube is draining well. Would recommend continue current care. Hopefully WBC will trend down. Recommend transfer to tertiary care center due to hepatic abscesses if continues to have elevated white count. Reevaluate in a.m. Subjective 24 Hr Interval Summary Constitutional: other (Patient feels much better. She is having less pain. She has no nausea or vomiting. She has no fevers. She has had a bowel movement.) Exam/Review of Systems Vital Signs Vitals Vital Signs Date Temp Pulse Resp B/P (MAP) Pulse Ox O2 O2 Flow FiO2 Time Delivery Rate 08/07/18 98.2 68 18 95/62 (73) 96 Room Air 07:47 Intake and Output 08/06/18 08/06/18 08/07/18 1515:00 23:00 07:00 IntakeIntake Total 896.667 ml 1897.5 ml 625 ml OutputOutput Total 200 ml 150 ml BalanceBalance 696.667 ml 1897.5 ml 475 ml Exam Constitutional: alert, oriented, well developed Cardiovascular: regular rate and rhythm Gastrointestinal: soft, non-tender Results Free Text/Dictation Patient: CHEYENNE CEBALLOS : 1980 Age: 38 Sex: F MR #: [id number] [facility] #: [id number] DOS: 08/06/18 0000 Ordering MD: KEAGAN ELENA Location: [facility] Room/Bed: [facility] PROCEDURE: CT Abdomen and Pelvis with intravenous contrast. CLINICAL INDICATION: Abdominal pain.. Status post percutaneous cholecystostomy tube placement. TECHNIQUE: CT scan of the abdomen and pelvis with intravenous contrast was performed on the multi-slice CT scanner. The patient was scanned following the uncomplicated intravenous administration of 100 cc of Omnipaque-300 contrast. Coronal and sagittal reformatted images were obtained from the axial source images. Images were reviewed on a high-resolution PACS workstation. DICOM images are available. Total DLP = 772.2 mGy-cm. CTDIvol = 13.0 mGy. One or more of the following dose reduction techniques were used: Automated exposure control. Adjustment of the mA and/or kV according to patient size. Use of iterative reconstruction technique. COMPARISON: CT 08/04/2018; CT 08/01/2018 FINDINGS: Lower thorax: There is right basilar atelectasis and consolidation with small right pleural effusion new since prior exam. Mild left basilar atelectasis or consolidation is present as well.. Liver: Normal. No focal mass. Biliary: There is a percutaneous cholecystostomy tube in place with tip coiled near the gallbladder neck. The gallbladder is decreased in distension since prior exam. There is persistent pericholecystic fluid collections or abscesses extending into the liver parenchyma similar to prior exam. Small air bubbles are seen within some of these fluid collections likely related to tube placement.. No biliary dilatation. Pancreas: Normal. Spleen: Normal. Adrenal Glands: Normal. Genitourinary: Normal. Gastrointestinal: Normal. Lymph nodes: Normal. Vascular: Normal. Peritoneum/mesentery: There is trace perihepatic fluid and mild inflammatory stranding extending from the gallbladder fossa along the liver tip into the right pericolic gutter. Reproductive organs: There is an intrauterine prophylactic device in place. Musculoskeletal: Mild subcutaneous edema and inflammation is seen along the right lateral abdominal wall. IMPRESSION: 1. Interval placement of percutaneous cholecystostomy tube with tip coiled near the gallbladder neck. Slightly decreased gallbladder distension since prior exam. Persistent pericholecystic and intrahepatic fluid collections or abscesses are unchanged in size although small air bubbles are seen in some of the fluid collections likely related to tube placement. 2. Postprocedural trace fluid and inflammation along the liver margin, the right pericolic gutter and right lateral subcutaneous abdominal wall. 3. Bibasilar pulmonary consolidation and atelectasis with small right pleural effusion new since prior exam.. Result Diagram: 08/07/18 0451 08/07/18 0451 OSMAN YEH MD Aug 07, 2018 14:19
--- NOTE | 2018-08-07 14:21 | PN ---
Date/Time of Note Date/Time of Note DATE: 08/07/18 TIME: 14:18 Assessment/Plan VTE Prophylaxis Risk score (from Nsg)>0 risk: 3 SCD applied (from Nsg): Yes Pharmacological prophylaxis: other Lines/Catheters IV Catheter Type (from Nrsg): Peripheral IV Urinary Cath still in place: No Assessment/Plan Hospital Course S: Fevers less frequent now, white blood cell count slightly improved. Patient with less distress today, less abdominal pain. O: VS - see below PE: Gen: lying in bed in no acute distress Eyes: PERRL, no icterus HEENT: Clear oropharynx, moist mucous membranes Neck: No lymphadenopathy Card: Regular rate and rhythm, no murmurs Pulm: Clear to auscultation bilaterally Abd: RUQ well-healed cholecystostomy tube site. No guarding, no hepatosplenomegaly. Ext: No cyanosis/clubbing/edema CT abdomen pelvis with contrast August 01, 2018: IMPRESSION: Distended inflamed gallbladder with multiple loculated pericholecystic and surrounding intrahepatic abscesses. CTA of the coronary arteries: IMPRESSION: Total calcium score: 0 RCA: Normal. LM: Normal. LAD: Normal. LCX: Normal. CT scan abdomen pelvis IV contrast August 06, 2018: IMPRESSION: 1. Interval placement of percutaneous cholecystostomy tube with tip coiled near the gallbladder neck. Slightly decreased gallbladder distension since prior exam. Persistent pericholecystic and intrahepatic fluid collections or abscesses are unchanged in size although small air bubbles are seen in some of the fluid collections likely related to tube placement. 2. Postprocedural trace fluid and inflammation along the liver margin, the right pericolic gutter and right lateral subcutaneous abdominal wall. 3. Bibasilar pulmonary consolidation and atelectasis with small right pleural effusion new since prior exam.. Assessment and plan: 38-year-old female who presents with: #Sepsis- Suspect source is pericholecystic fluid/abscess. Now status post CT- guided hepatic drainage placement by IR 3 days ago fever still present but less frequent, white blood cell count slightly improved today. Seen by ID and lepe fortunatoery teams earlier today. -Follow-up results of UA and culture, blood cultures -Per surgery recognitions, continue to monitor drainage from drain site, per discussion with surgery team , will still try to attempt to transfer to higher level of care to be under the service of hepatobiliary surgery team - Case management is working on that. Also formally requested hepatobiliary surgery consult if that can be performed while the patient still here in the hospital. -Appreciate ID recommendations, for now continue antibiotics, follow-up their further recommendations -Continue IV fluids #Pericholecystic fluid with small hepatic abscesses-again presently on antibiotics, surgery team on the case as well as ID -Per surgery team, again status post IR guided drainage 3 days ago, continue to monitor drainage for now, antibiotics -Again, despite drain placement, may need transfer to higher level of care for hepatobiliary surgery. -Monitor LFTs #Chest pain-resolving now, cardiology team on the case for possible abnormal stress test performed earlier; cardiac CTA results reviewed -No present issues, continue to monitor for now #Headache-head CT negative for any acute findings -Continue monitor for now DVT: SCDs GI: None Result Diagram: 08/07/18 0451 08/07/18 0451 Results 24hrs Laboratory Tests Test 08/07/18 04:51 White Blood Count 18.8 H Red Blood Count 3.76 L Hemoglobin 9.9 L Hematocrit 31.5 L Mean Corpuscular Volume 83.8 Mean Corpuscular Hemoglobin 26.3 L Mean Corpuscular Hemoglobin Concent 31.4 L Red Cell Distribution Width 13.9 Platelet Count 496 H Mean Platelet Volume 9.2 Immature Granulocytes % 1.100 H Neutrophils % 81.3 H Lymphocytes % 8.7 L Monocytes % 4.7 Eosinophils % 3.8 Basophils % 0.4 Nucleated Red Blood Cells % 0.0 Immature Granulocytes # 0.200 H Neutrophils # 15.3 H Lymphocytes # 1.6 Monocytes # 0.9 Eosinophils # 0.7 H Basophils # 0.1 Nucleated Red Blood Cells # 0.0 Sodium Level 138 Potassium Level 3.5 Chloride Level 99 Carbon Dioxide Level 30 Anion Gap 9 Blood Urea Nitrogen 6 L Creatinine 0.51 Est Glomerular Filtrat Rate mL/min > 60 Glucose Level 114 Calcium Level 8.4 Exam/Review of Systems Exam Vitals Vital Signs Date Temp Pulse Resp B/P (MAP) Pulse Ox O2 O2 Flow FiO2 Time Delivery Rate 08/07/18 98.2 68 18 95/62 (73) 96 Room Air 07:47 Intake and Output 08/06/18 08/06/18 08/07/18 1414:59 22:59 06:59 IntakeIntake Total 896.667 ml 1897.5 ml 625 ml OutputOutput Total 200 ml 150 ml BalanceBalance 696.667 ml 1897.5 ml 475 ml Results Results 24hrs Laboratory Tests Test 08/07/18 04:51 White Blood Count 18.8 H Red Blood Count 3.76 L Hemoglobin 9.9 L Hematocrit 31.5 L Mean Corpuscular Volume 83.8 Mean Corpuscular Hemoglobin 26.3 L Mean Corpuscular Hemoglobin Concent 31.4 L Red Cell Distribution Width 13.9 Platelet Count 496 H Mean Platelet Volume 9.2 Immature Granulocytes % 1.100 H Neutrophils % 81.3 H Lymphocytes % 8.7 L Monocytes % 4.7 Eosinophils % 3.8 Basophils % 0.4 Nucleated Red Blood Cells % 0.0 Immature Granulocytes # 0.200 H Neutrophils # 15.3 H Lymphocytes # 1.6 Monocytes # 0.9 Eosinophils # 0.7 H Basophils # 0.1 Nucleated Red Blood Cells # 0.0 Sodium Level 138 Potassium Level 3.5 Chloride Level 99 Carbon Dioxide Level 30 Anion Gap 9 Blood Urea Nitrogen 6 L Creatinine 0.51 Est Glomerular Filtrat Rate mL/min > 60 Glucose Level 114 Calcium Level 8.4 Medications Medication Current Medications IV Flush (NS 3 ml) 3 ml PER PROTOCOL IV ; Start 08/01/18 at 19:30 Ondansetron HCl (Zofran Inj) 4 mg Q6H PRN IV NAUSEA/VOMITING Last administered on 08/06/18at 13:22; Admin Dose 4 MG; Start 08/01/18 at 19:30 Acetaminophen (Tylenol Tab) 650 mg Q6H PRN PO .PAIN 1-3 OR TEMP Last administered on 08/07/18 03:22; Admin Dose 650 MG; Start 08/01/18 at 19:30 Acetaminophen/ Hydrocodone Bitart ([place] (5/325)) 1 tab Q6H PRN PO .MOD PAIN 4- 6 Last administered on 08/07/18 06:23; Admin Dose 1 TAB; Start 08/01/18 at 19:30 Pantoprazole (Protonix Iv) 40 mg DAILY@06 IV Last administered on 08/07/18 05:40; Admin Dose 40 MG; Start 08/02/18 at 06:00 Dextrose/Sodium Chloride 1,000 ml @ 75 mls/hr [id number] IV Last administered on 08/06/18 18:28; Admin Dose 75 MLS/HR; Start 08/02/18 at 16:00 Meropenem/Sodium Chloride 50 ml @ 100 mls/hr Q12 IVPB Last administered on 08/07/18 08:18; Admin Dose 100 MLS/HR; Start 08/03/18 at 16:00 Nystatin (Nystatin Susp) 5 ml QID PO Last administered on 08/07/18 13:36; Admin Dose 5 ML; Start 08/03/18 at 17:00 Docusate Sodium (Colace) 100 mg BID PO Last administered on 08/07/18 08:18; Admin Dose 100 MG; Start 08/05/18 at 10:30 Vancomycin HCl (Vanco Iv Per Pharmacy) VANCOMYCIN PER PHARMACY PER PROTOCOL XX ; Start 08/05/18 at 11:30 Fluconazole/ Sodium Chloride 50 ml @ 50 mls/hr Q24H IVPB Last administered on 08/07/18 13:36; Admin Dose 50 MLS/HR; Start 08/05/18 at 13:00 Vancomycin HCl 1.25 gm/Sodium Chloride 250 ml @ 83.333 mls/ hr Q8 IVPB Last administered on 08/07/18 06:23; Admin Dose 83.333 MLS/HR; Start 08/05/18 at 22:00 Magnesium Hydroxide (Milk Of Mag) 30 ml BID PRN PO CONSTIPATION; Start 08/07/18 at 06:30 KEAGAN ELENA Aug 07, 2018 14:21
[2018-08-07 14:26] VITALS: BP_SYST 109; BP_SYST 92; BP_DIAS 60; BP_DIAS 70; PULSE 75; PULSE 95; RESP 18
[2018-08-07 20:00] VITALS: BP 108/64; PULSE 73; RESP 18
[2018-08-08 02:06] VITALS: BP 106/62; PULSE 92; RESP 18
[2018-08-08] MEDS: DEXTROSE 5%-0.45% NACL 1,000 ML IV SCH ×2 (05:49→16:32)
[2018-08-08] MEDS: PANTOPRAZOLE 40 MG INJ IV SCH (05:49)
[2018-08-08] MEDS: VANCOMYCIN HCL 1.25 GM in SOD CHLORIDE 0.9% 250 ML IVPB SCH ×3 (05:51→23:25)
[2018-08-08 08:17] VITALS: BP 113/84; PULSE 84; RESP 17
[2018-08-08] MEDS: MEROPENEM 1 GM/50ML(PMX) 50 ML IVPB SCH ×2 (09:28→20:37)
[2018-08-08] MEDS: NYSTATIN SUSP 5 ML CUP PO SCH ×4 (09:28→20:37)
[2018-08-08] MEDS: DOCUSATE SODIUM 100 MG CAP PO SCH ×2 (09:28→20:37)
[2018-08-08] MEDS: FLUCONAZOLE 100 MG/50 ML (PMX) 50 ML IVPB SCH (14:04)
[2018-08-08 14:46] VITALS: BP 98/63; PULSE 88; RESP 17
--- NOTE | 2018-08-08 15:01 | PN ---
Date/Time of Note Date/Time of Note DATE: 08/08/18 TIME: 14:56 Assessment/Plan VTE Prophylaxis Risk score (from Ns)>0 risk: 2 SCD applied (from Ns): Yes Pharmacological prophylaxis: other Lines/Catheters IV Catheter Type (from Nrsg): Peripheral IV Urinary Cath still in place: No Assessment/Plan Hospital Course S: No fevers noted overnight which is much improvement. Tolerating diet. White blood cell count improved today still overall elevated. Patient however is complaining of some mild hematuria O: VS - see below PE: Gen: lying in bed in no acute distress Eyes: PERRL, no icterus HEENT: Clear oropharynx, moist mucous membranes Neck: No lymphadenopathy Card: Regular rate and rhythm, no murmurs Pulm: Clear to auscultation bilaterally Abd: RUQ drainage tube in place, no guarding, no hepatosplenomegaly. Ext: No cyanosis/clubbing/edema CT abdomen pelvis with contrast August 01, 2018: IMPRESSION: Distended inflamed gallbladder with multiple loculated pericholecystic and surrounding intrahepatic abscesses. CTA of the coronary arteries: IMPRESSION: Total calcium score: 0 RCA: Normal. LM: Normal. LAD: Normal. LCX: Normal. CT scan abdomen pelvis IV contrast August 06, 2018: IMPRESSION: 1. Interval placement of percutaneous cholecystostomy tube with tip coiled near the gallbladder neck. Slightly decreased gallbladder distension since prior exam. Persistent pericholecystic and intrahepatic fluid collections or abscesses are unchanged in size although small air bubbles are seen in some of the fluid collections likely related to tube placement. 2. Postprocedural trace fluid and inflammation along the liver margin, the right pericolic gutter and right lateral subcutaneous abdominal wall. 3. Bibasilar pulmonary consolidation and atelectasis with small right pleural effusion new since prior exam.. Assessment and plan: 38-year-old female who presents with: #Sepsis-improving now, suspect source is pericholecystic fluid/abscess. Now status post CT-guided hepatic drainage placement by IR 4 days ago -actually no fevers in the last 24 hours, white blood cell count slightly improved today. Seen by ID and surgery teams earlier. -Per surgery recommendations continue to monitor drainage from drain site, -Also per discussion with surgery team, although we were previously trying to attempt to transfer to higher level of care to be under the service of hepatobiliary surgery team, because the patient has not had significant fevers in the last 24 hours and white blood cell count is trending down slowly, will hold off on that for now and order for PICC placement. Also, 2 days ago also formally requested hepatobiliary surgery consult if that can be performed while the patient still here in the hospital. -Appreciate ID recommendations, for now continue antibiotics, follow-up culture results and follow-up their further recommendations -Continue IV fluids #Pericholecystic fluid with small hepatic abscesses-and status post drainage placement, again presently on antibiotics, surgery team on the case as well as ID -Per surgery team, again status post IR guided drainage 4 days ago, continue to monitor drainage for now, antibiotics -Monitor LFTs #Chest pain-resolving now, cardiology team on the case for possible abnormal str ess test performed earlier; cardiac CTA results reviewed -No present issues, continue to monitor for now #Headache-head CT negative for any acute findings -Continue monitor for now DVT: SCDs GI: None Dispo: Likely home in 24-48 hours if fevers continues to subside, white blood cell count continue to trend down, PICC placed, and clearance given by ID and surgery teams. Per surgery recommendations today, no intervention planned at this time, but they are recommending once patient is discharged 6 weeks of IV antibiotics via PICC. Result Diagram: 08/08/187 08/08/187 Results 24hrs Laboratory Tests Test 08/08/18 04:57 White Blood Count 15.7 H Red Blood Count 3.68 L Hemoglobin 9.7 L Hematocrit 30.7 L Mean Corpuscular Volume 83.4 Mean Corpuscular Hemoglobin 26.4 L Mean Corpuscular Hemoglobin Concent 31.6 L Red Cell Distribution Width 14.3 Platelet Count 603 #H Mean Platelet Volume 9.2 Immature Granulocytes % 0.900 H Neutrophils % 78.9 H Lymphocytes % 9.8 L Monocytes % 5.4 Eosinophils % 4.7 Basophils % 0.3 Nucleated Red Blood Cells % 0.0 Immature Granulocytes # 0.140 H Neutrophils # 12.4 H Lymphocytes # 1.5 Monocytes # 0.8 Eosinophils # 0.7 H Basophils # 0.1 Nucleated Red Blood Cells # 0.0 Sodium Level 139 Potassium Level 3.7 Chloride Level 101 Carbon Dioxide Level 31 Anion Gap 7 Blood Urea Nitrogen 9 Creatinine 0.52 Est Glomerular Filtrat Rate mL/min > 60 Glucose Level 111 Calcium Level 8.4 Exam/Review of Systems Exam Vitals Vital Signs Date Temp Pulse Resp B/P (MAP) Pulse Ox O2 O2 Flow FiO2 Time Delivery Rate 08/08/18 98.4 88 17 98/63 (75) 94 14:46 08/08/18 Room Air 08:17 Intake and Output 08/07/18 08/07/18 08/08/18 1515:00 23:00 07:00 IntakeIntake Total 350 ml 925 ml 250 ml OutputOutput Total 400 ml BalanceBalance 350 ml 525 ml 250 ml Results Results 24hrs Laboratory Tests Test 08/08/18 04:57 White Blood Count 15.7 H Red Blood Count 3.68 L Hemoglobin 9.7 L Hematocrit 30.7 L Mean Corpuscular Volume 83.4 Mean Corpuscular Hemoglobin 26.4 L Mean Corpuscular Hemoglobin Concent 31.6 L Red Cell Distribution Width 14.3 Platelet Count 603 #H Mean Platelet Volume 9.2 Immature Granulocytes % 0.900 H Neutrophils % 78.9 H Lymphocytes % 9.8 L Monocytes % 5.4 Eosinophils % 4.7 Basophils % 0.3 Nucleated Red Blood Cells % 0.0 Immature Granulocytes # 0.140 H Neutrophils # 12.4 H Lymphocytes # 1.5 Monocytes # 0.8 Eosinophils # 0.7 H Basophils # 0.1 Nucleated Red Blood Cells # 0.0 Sodium Level 139 Potassium Level 3.7 Chloride Level 101 Carbon Dioxide Level 31 Anion Gap 7 Blood Urea Nitrogen 9 Creatinine 0.52 Est Glomerular Filtrat Rate mL/min > 60 Glucose Level 111 Calcium Level 8.4 Medications Medication Current Medications IV Flush (NS 3 ml) 3 ml PER PROTOCOL IV ; Start 08/01/18 at 19:30 Ondansetron HCl (Zofran Inj) 4 mg Q6H PRN IV NAUSEA/VOMITING Last administered on 08/06/18at 13:22; Admin Dose 4 MG; Start 08/01/18 at 19:30 Acetaminophen (Tylenol Tab) 650 mg Q6H PRN PO .PAIN 1-3 OR TEMP Last administered on 08/07/18at 03:22; Admin Dose 650 MG; Start 08/01/18 at 19:30 Acetaminophen/ Hydrocodone Bitart ([place] (5/325)) 1 tab Q6H PRN PO .MOD PAIN 4- 6 Last administered on 08/07/18 16:03; Admin Dose 1 TAB; Start 08/01/18 at 19:30 Pantoprazole (Protonix Iv) 40 mg DAILY@06 IV Last administered on 08/08/18 05:49; Admin Dose 40 MG; Start 08/02/18 at 06:00 Dextrose/Sodium Chloride 1,000 ml @ 75 mls/hr [id number] IV Last administered on 08/08/18 05:49; Admin Dose 75 MLS/HR; Start 08/02/18 at 16:00 Meropenem/Sodium Chloride 50 ml @ 100 mls/hr Q12 IVPB Last administered on 08/08/18 09:28; Admin Dose 100 MLS/HR; Start 08/03/18 at 16:00 Nystatin (Nystatin Susp) 5 ml QID PO Last administered on 08/08/18 14:04; Admin Dose 5 ML; Start 08/03/18 at 17:00 Docusate Sodium (Colace) 100 mg BID PO Last administered on 08/08/18 09:28; Admin Dose 100 MG; Start 08/05/18 at 10:30 Vancomycin HCl (Vanco Iv Per Pharmacy) VANCOMYCIN PER PHARMACY PER PROTOCOL XX ; Start 08/05/18 at 11:30 Fluconazole/ Sodium Chloride 50 ml @ 50 mls/hr Q24H IVPB Last administered on 08/08/18 14:04; Admin Dose 50 MLS/HR; Start 08/05/18 at 13:00 Vancomycin HCl 1.25 gm/Sodium Chloride 250 ml @ 83.333 mls/ hr Q8 IVPB Last administered on 08/08/18 05:51; Admin Dose 83.333 MLS/HR; Start 08/05/18 at 22:00 Magnesium Hydroxide (Milk Of Mag) 30 ml BID PRN PO CONSTIPATION; Start 08/07/18 at 06:30 Miscellaneous Information (*Rx Drug Level Order Reminder*) VANCO TR 08/09 AT 1300 ONCE ONCE XX ; Start 08/09/18 at 13:00; Stop 08/09/18 at 13:01 KEAGAN ELENA Aug 08, 2018 15:01
[2018-08-08] MEDS ORDERED: LIDOCAINE 1% (MPF) 5 ML VIAL SC ONE (15:30)
--- NOTE | 2018-08-08 16:24 | CONS ---
Assessment/Plan Assessment/Plan Hospital Course (Demo Recall) Patient is alert feels better, looks comfortable, T-max 99.6. WBC today 15.7 H&H 9.7 and 30.7 platelets 603 neutrophils 78.9 BUN 9 creatinine 0.52 Antimicrobials: Vanco, fluconazole, meropenem Allergy: Penicillin Physical examination: Well-developed middle-aged woman in no distress. Head atraumatic normocephalic neck is supple chest rise symmetrical, breath sounds diminished bases. Heart: S1-S2. Abdomen soft guarded on palpation bowel sounds present. Extremities without cyanosis. Assessment: 1. Sepsis, present on admission secondary to #2 2. Gallbladder/hepatic abscesses, status post cholecystostomy tube placement 3. Oral candidiasis 4. UTI per urinalysis Plan: Clinically improving, repeat CT abdomen noted, patient is being followed by surgery, fluid culture pending, not sent 2 days ago but send this afternoon. Continue on current antibiotics. Consider PICC line placement as patient will require long-term IV antibiotics Consultation Date/Type/Reason Admit Date/Time Aug 01, 2018 at 17:50 Initial Consult Date 08/03/18 Type of Consult id Requesting Provider: KEAGAN ELENA Date/Time of Note DATE: 08/08/18 TIME: 16:22 Exam/Review of Systems Exam Vitals Vital Signs Date Temp Pulse Resp B/P (MAP) Pulse Ox O2 O2 Flow FiO2 Time Delivery Rate 08/08/18 98.4 88 17 98/63 (75) 94 14:46 08/08/18 Room Air 08:17 Intake and Output 08/07/18 08/07/18 08/08/18 1515:00 23:00 07:00 IntakeIntake Total 350 ml 925 ml 250 ml OutputOutput Total 400 ml BalanceBalance 350 ml 525 ml 250 ml Results Result Diagram: 08/08/18 0457 08/08/18 0457 Results 24hrs Laboratory Tests Test 08/08/18 04:57 White Blood Count 15.7 H Red Blood Count 3.68 L Hemoglobin 9.7 L Hematocrit 30.7 L Mean Corpuscular Volume 83.4 Mean Corpuscular Hemoglobin 26.4 L Mean Corpuscular Hemoglobin Concent 31.6 L Red Cell Distribution Width 14.3 Platelet Count 603 #H Mean Platelet Volume 9.2 Immature Granulocytes % 0.900 H Neutrophils % 78.9 H Lymphocytes % 9.8 L Monocytes % 5.4 Eosinophils % 4.7 Basophils % 0.3 Nucleated Red Blood Cells % 0.0 Immature Granulocytes # 0.140 H Neutrophils # 12.4 H Lymphocytes # 1.5 Monocytes # 0.8 Eosinophils # 0.7 H Basophils # 0.1 Nucleated Red Blood Cells # 0.0 Sodium Level 139 Potassium Level 3.7 Chloride Level 101 Carbon Dioxide Level 31 Anion Gap 7 Blood Urea Nitrogen 9 Creatinine 0.52 Est Glomerular Filtrat Rate mL/min > 60 Glucose Level 111 Calcium Level 8.4 Medications Medication Current Medications IV Flush (NS 3 ml) 3 ml PER PROTOCOL IV ; Start 08/01/18 at 19:30 Ondansetron HCl (Zofran Inj) 4 mg Q6H PRN IV NAUSEA/VOMITING Last administered on 08/06/18 13:22; Admin Dose 4 MG; Start 08/01/18 at 19:30 Acetaminophen (Tylenol Tab) 650 mg Q6H PRN PO .PAIN 1-3 OR TEMP Last administered on 08/07/18 03:22; Admin Dose 650 MG; Start 08/01/18 at 19:30 Acetaminophen/ Hydrocodone Bitart ([place] (5/325)) 1 tab Q6H PRN PO .MOD PAIN 4- 6 Last administered on 08/07/18 16:03; Admin Dose 1 TAB; Start 08/01/18 at 19:30 Pantoprazole (Protonix Iv) 40 mg DAILY@06 IV Last administered on 08/08/18 05:49; Admin Dose 40 MG; Start 08/02/18 at 06:00 Dextrose/Sodium Chloride 1,000 ml @ 75 mls/hr [id number] IV Last administered on 08/08/18 05:49; Admin Dose 75 MLS/HR; Start 08/02/18 at 16:00 Meropenem/Sodium Chloride 50 ml @ 100 mls/hr Q12 IVPB Last administered on 08/08/18 09:28; Admin Dose 100 MLS/HR; Start 08/03/18 at 16:00 Nystatin (Nystatin Susp) 5 ml QID PO Last administered on 08/08/18 14:04; Admin Dose 5 ML; Start 08/03/18 at 17:00 Docusate Sodium (Colace) 100 mg BID PO Last administered on 08/08/18at 09:28; Admin Dose 100 MG; Start 08/05/18 at 10:30 Vancomycin HCl (Vanco Iv Per Pharmacy) VANCOMYCIN PER PHARMACY PER PROTOCOL XX ; Start 08/05/18 at 11:30 Fluconazole/ Sodium Chloride 50 ml @ 50 mls/hr Q24H IVPB Last administered on 08/08/18at 14:04; Admin Dose 50 MLS/HR; Start 08/05/18 at 13:00 Vancomycin HCl 1.25 gm/Sodium Chloride 250 ml @ 83.333 mls/ hr Q8 IVPB Last administered on 08/08/18at 05:51; Admin Dose 83.333 MLS/HR; Start 08/05/18 at 22:00 Magnesium Hydroxide (Milk Of Mag) 30 ml BID PRN PO CONSTIPATION; Start 08/07/18 at 06:30 Miscellaneous Information (*Rx Drug Level Order Reminder*) VANCO TR 08/09 AT 1300 ONCE ONCE XX ; Start 08/09/18 at 13:00; Stop 08/09/18 at 13:01 RICKEY QUINTANA NP Aug 08, 2018 16:24
[2018-08-08 19:40] VITALS: BP 111/60; PULSE 82; RESP 20
--- NOTE | 2018-08-08 20:18 | PN ---
Date/Time of Note Date/Time of Note DATE: 08/08/18 TIME: 20:16 Assessment/Plan Lines/Catheters IV Catheter Type (from Nrs): Peripheral IV Galvez in Place (from Nrs): No Assessment/Plan Assessment/Plan Improving Afebrile fro 48 hours WBC improving Drainage less purulent and more bilious Advance diet Possible d/c tomorrow on IV abx Subjective 24 Hr Interval Summary Constitutional: no complaints, improved, BM Feeding: advancing diet Exam/Review of Systems Vital Signs Vitals Vital Signs Date Temp Pulse Resp B/P (MAP) Pulse Ox O2 O2 Flow FiO2 Time Delivery Rate 08/08/18 98.4 88 17 98/63 (75) 94 14:46 08/08/18 Room Air 08:17 Intake and Output 08/07/18 08/07/18 08/08/18 1515:00 23:00 07:00 IntakeIntake Total 350 ml 925 ml 250 ml OutputOutput Total 400 ml BalanceBalance 350 ml 525 ml 250 ml Exam Constitutional: alert, oriented, well developed Neck: supple Respiratory: clear to auscultation Cardiovascular: regular rate and rhythm Gastrointestinal: soft, non-tender Results Result Diagram: 08/08/18 0457 08/08/18 0457 OSMAN YEH MD Aug 08, 2018 20:18
[2018-08-09 02:09] VITALS: BP 120/76; PULSE 78; RESP 20
[2018-08-09] MEDS: PANTOPRAZOLE 40 MG INJ IV SCH (05:29)
[2018-08-09] MEDS: VANCOMYCIN HCL 1.25 GM in SOD CHLORIDE 0.9% 250 ML IVPB SCH ×2 (05:29→21:19)
[2018-08-09] MEDS: HYDROCODONE/APAP (5/325) TAB PO PRN ×2 (05:45→21:19)
[2018-08-09 07:59] VITALS: BP 120/79; PULSE 71; RESP 18
[2018-08-09] MEDS: DEXTROSE 5%-0.45% NACL 1,000 ML IV SCH ×2 (08:00→18:12)
[2018-08-09] MEDS: MEROPENEM 1 GM/50ML(PMX) 50 ML IVPB SCH ×2 (08:49→20:30)
[2018-08-09] MEDS: DOCUSATE SODIUM 100 MG CAP PO SCH ×2 (08:49→20:30)
[2018-08-09] MEDS: NYSTATIN SUSP 5 ML CUP PO SCH ×5 (08:49→20:30)
--- NOTE | 2018-08-09 09:38 | PN ---
Date/Time of Note Date/Time of Note DATE: 08/09/18 TIME: 09:36 Assessment/Plan Lines/Catheters IV Catheter Type (from Nrsg): Peripheral IV Galvez in Place (from Nrsg): No Assessment/Plan Assessment/Plan Continues to improve. Tolerating soft diet. WBC improved as well LFTs within normal limits. Okay to discharge from surgical perspective on IV antibiotic Follow-up in office in 2 weeks Subjective 24 Hr Interval Summary Constitutional: no complaints, improved Pain Control: well controlled Additional Comments Tolerating soft diet. Exam/Review of Systems Vital Signs Vitals Vital Signs Date Temp Pulse Resp B/P (MAP) Pulse Ox O2 O2 Flow FiO2 Time Delivery Rate 08/09/18 96.8 71 18 120/79 94 07:59 (93) 08/08/18 Room Air 08:17 Intake and Output 08/08/18 08/08/18 08/09/18 1515:00 23:00 07:00 IntakeIntake Total 350 ml 525 ml OutputOutput Total 280 ml 350 ml BalanceBalance 70 ml 525 ml -350 ml Exam Constitutional: alert, oriented, well developed Respiratory: clear to auscultation Cardiovascular: regular rate and rhythm Gastrointestinal: soft, non-tender Results Result Diagram: 08/09/18 0458 08/09/18 0456 OSMAN YEH MD Aug 09, 2018 09:38
--- NOTE | 2018-08-09 10:32 | CONS ---
Assessment/Plan Assessment/Plan Hospital Course (Demo Recall) No acute changes overnight patient is afebrile in no distress WBC 13.8 platelets 700 neutrophils 75.3 BUN 9 creatinine 0.56 Microbiology: Fluid cultures pending Antimicrobials: Vanco, fluconazole, meropenem Allergy: Penicillin Physical examination: Well-developed middle-aged woman in no distress. Head atraumatic normocephalic neck is supple chest rise symmetrical, breath sounds diminished bases. Heart: S1-S2. Abdomen soft guarded on palpation bowel sounds present. Extremities without cyanosis. Assessment: 1. Sepsis, present on admission secondary to #2 2. Gallbladder/hepatic abscesses, status post cholecystostomy tube placement 3. Oral candidiasis 4. UTI per urinalysis Plan: Patient remained stable, WBC trending down, fevers resolving, repeat CT of the abdomen 08/06/18/revealed persistent pericholecystic and intrahepatic fluid collections or abscesses that were unchanged in size. Patient will require IV antibiotics for at least 2 more weeks with repeat CT of the abdomen at the end of second week to evaluate if abscesses resolved. Continue following surgical recommendations. Patient refused PICC line placement yesterday per report Consultation Date/Type/Reason Admit Date/Time Aug 01, 2018 at 17:50 Initial Consult Date 08/03/18 Type of Consult id Requesting Provider: KEAGAN ELENA Date/Time of Note DATE: 08/09/18 TIME: 10:28 Exam/Review of Systems Exam Vitals Vital Signs Date Temp Pulse Resp B/P (MAP) Pulse Ox O2 O2 Flow FiO2 Time Delivery Rate 08/09/18 96.8 71 18 120/79 94 07:59 (93) 08/08/18 Room Air 08:17 Intake and Output 08/08/18 08/08/18 08/09/18 1515:00 23:00 07:00 IntakeIntake Total 350 ml 525 ml OutputOutput Total 280 ml 350 ml BalanceBalance 70 ml 525 ml -350 ml Results Result Diagram: 08/09/18 0458 08/09/18 0456 Results 24hrs Laboratory Tests Test 08/08/18 17:25 08/09/18 04:56 08/09/18 04:58 Urine Color YELLOW Urine Clarity CLEAR Urine pH 8.0 Urine Specific [place] 1.009 Urine Ketones NEGATIVE Urine Nitrite NEGATIVE Urine Bilirubin NEGATIVE Urine Urobilinogen NEGATIVE Urine Leukocyte Esterase NEGATIVE Urine Microscopic RBC 4 Urine Microscopic WBC 3 Urine Bacteria FEW A Urine Hemoglobin 1+ H Urine Glucose NEGATIVE Urine Total Protein NEGATIVE Sodium Level 139 Potassium Level 4.4 Chloride Level 101 Carbon Dioxide Level 29 Anion Gap 9 Blood Urea Nitrogen 9 Creatinine 0.56 Est Glomerular Filtrat Rate mL/min > 60 Glucose Level 101 Calcium Level 8.6 Total Bilirubin 0.0 L Direct Bilirubin 0.00 Indirect Bilirubin 0.0 Aspartate Amino Transf (AST/SGOT) 37 Alanine Aminotransferase (ALT/SGPT) 38 Alkaline Phosphatase 228 H Total Protein 6.2 Albumin 2.8 L Globulin 3.40 H Albumin/Globulin Ratio 0.82 White Blood Count 13.8 H Red Blood Count 3.69 L Hemoglobin 9.7 L Hematocrit 31.1 L Mean Corpuscular Volume 84.3 Mean Corpuscular Hemoglobin 26.3 L Mean Corpuscular Hemoglobin Concent 31.2 L Red Cell Distribution Width 14.2 Platelet Count 700 H Mean Platelet Volume 9.1 Immature Granulocytes % 1.100 H Neutrophils % 75.3 Lymphocytes % 11.8 L Monocytes % 6.0 Eosinophils % 5.4 Basophils % 0.4 Nucleated Red Blood Cells % 0.0 Immature Granulocytes # 0.150 H Neutrophils # 10.4 H Lymphocytes # 1.6 Monocytes # 0.8 Eosinophils # 0.7 H Basophils # 0.1 Nucleated Red Blood Cells # 0.0 Medications Medication Current Medications IV Flush (NS 3 ml) 3 ml PER PROTOCOL IV ; Start 08/01/18 at 19:30 Ondansetron HCl (Zofran Inj) 4 mg Q6H PRN IV NAUSEA/VOMITING Last administered on 08/06/18 13:22; Admin Dose 4 MG; Start 08/01/18 at 19:30 Acetaminophen (Tylenol Tab) 650 mg Q6H PRN PO .PAIN 1-3 OR TEMP Last admin istered on 08/07/18 03:22; Admin Dose 650 MG; Start 08/01/18 at 19:30 Acetaminophen/ Hydrocodone Bitart ([place] (5/325)) 1 tab Q6H PRN PO .MOD PAIN 4- 6 Last administered on 08/09/18 05:45; Admin Dose 1 TAB; Start 08/01/18 at 19:30 Pantoprazole (Protonix Iv) 40 mg DAILY@06 IV Last administered on 08/09/18 05:29; Admin Dose 40 MG; Start 08/02/18 at 06:00 Dextrose/Sodium Chloride 1,000 ml @ 75 mls/hr [id number] IV Last administered on 08/08/18 05:49; Admin Dose 75 MLS/HR; Start 08/02/18 at 16:00 Meropenem/Sodium Chloride 50 ml @ 100 mls/hr Q12 IVPB Last administered on 08/09/18 08:49; Admin Dose 100 MLS/HR; Start 08/03/18 at 16:00 Nystatin (Nystatin Susp) 5 ml QID PO Last administered on 08/09/18 08:49; Admin Dose 5 ML; Start 08/03/18 at 17:00 Docusate Sodium (Colace) 100 mg BID PO Last administered on 08/09/18 08:49; Admin Dose 100 MG; Start 08/05/18 at 10:30 Vancomycin HCl (Vanco Iv Per Pharmacy) VANCOMYCIN PER PHARMACY PER PROTOCOL XX ; Start 08/05/18 at 11:30 Fluconazole/ Sodium Chloride 50 ml @ 50 mls/hr Q24H IVPB Last administered on 08/08/18 14:04; Admin Dose 50 MLS/HR; Start 08/05/18 at 13:00 Vancomycin HCl 1.25 gm/Sodium Chloride 250 ml @ 83.333 mls/ hr Q8 IVPB Last ad ministered on 08/09/18 05:29; Admin Dose 83.333 MLS/HR; Start 08/05/18 at 22:00 Magnesium Hydroxide (Milk Of Mag) 30 ml BID PRN PO CONSTIPATION; Start 08/07/18 at 06:30 Miscellaneous Information (*Rx Drug Level Order Reminder*) VANCO TR 08/09 AT 1300 ONCE ONCE XX ; Start 08/09/18 at 13:00; Stop 08/09/18 at 13:01 RICKEY QUINTANA NP Aug 09, 2018 10:32
[2018-08-09] MEDS: FLUCONAZOLE 100 MG/50 ML (PMX) 50 ML IVPB SCH (14:47)
[2018-08-09 14:59] VITALS: BP 108/61; PULSE 82; RESP 18
--- NOTE | 2018-08-09 17:50 | PN ---
Date/Time of Note Date/Time of Note DATE: 08/09/18 TIME: 17:46 Assessment/Plan VTE Prophylaxis Risk score (from Ns)>0 risk: 1 SCD applied (from Ns): Yes Pharmacological prophylaxis: NA/contraindicated Pharm contraindication: low risk/ambulating Lines/Catheters IV Catheter Type (from Nrsg): Peripheral IV Urinary Cath still in place: No Assessment/Plan Assessment/Plan 38 yo woman with sepsis from hepatic abscesses. #Sepsis-improving now, suspect source is pericholecystic fluid/abscess. - Now status post CT-guided hepatic drainage placement by IR on 08/05 days ago - Per Dr. Hoover, no surgery including cholecystectomy in house. He will follow outpatient. - Unfortunately hepatic abscesses have not decreased in size over the past week with medical therapy alone. - Will plan for 2-4 weeks [facility] antibiotics. #Pericholecystic fluid with small hepatic abscesses-and status post drainage placement, again presently on antibiotics, surgery team on the case as well as ID - Plan for 2-4 week antibiotics. - Pending culture and sensitivities. #Chest pain - CT coronary angiogram with clean coronaries; calcium score 0. #Headache-head CT negative for any acute findings DVT: SCDs GI: None Result Diagram: 08/09/18 0458 08/09/18 0456 Subjective 24 Hr Interval Summary Free Text/Dictation No acute overnight events. Patient sitting comfortably in no acute distress. Her cousin was at bedside. With the patient's assent, I updated her on the current status. Exam/Review of Systems Exam Vitals Vital Signs Date Temp Pulse Resp B/P (MAP) Pulse Ox O2 O2 Flow FiO2 Time Delivery Rate 08/09/18 98.0 82 18 108/61 97 14:59 (77) 08/08/18 Room Air 08:17 Intake and Output 08/08/18 08/08/18 08/09/18 1515:00 23:00 07:00 IntakeIntake Total 350 ml 525 ml OutputOutput Total 280 ml 350 ml BalanceBalance 70 ml 525 ml -350 ml Exam Gen: Overweight woman sitting in chair, no acute distress. Eyes: PERRL, no icterus HEENT: Clear oropharynx, moist mucous membranes Neck: No lymphadenopathy Card: Regular rate and rhythm, no murmurs Pulm: Clear to auscultation bilaterally Abd: RUQ drainage tube in place, no guarding, no hepatosplenomegaly. Ext: No cyanosis/clubbing/edema Results Results 24hrs Laboratory Tests Test 08/09/18 04:56 08/09/18 04:58 08/09/18 12:38 Sodium Level 139 Potassium Level 4.4 Chloride Level 101 Carbon Dioxide Level 29 Anion Gap 9 Blood Urea Nitrogen 9 Creatinine 0.56 Est Glomerular Filtrat Rate mL/min > 60 Glucose Level 101 Calcium Level 8.6 Total Bilirubin 0.0 L Direct Bilirubin 0.00 Indirect Bilirubin 0.0 Aspartate Amino Transf (AST/SGOT) 37 Alanine Aminotransferase (ALT/SGPT) 38 Alkaline Phosphatase 228 H Total Protein 6.2 Albumin 2.8 L Globulin 3.40 H Albumin/Globulin Ratio 0.82 White Blood Count 13.8 H Red Blood Count 3.69 L Hemoglobin 9.7 L Hematocrit 31.1 L Mean Corpuscular Volume 84.3 Mean Corpuscular Hemoglobin 26.3 L Mean Corpuscular Hemoglobin Concent 31.2 L Red Cell Distribution Width 14.2 Platelet Count 700 H Mean Platelet Volume 9.1 Immature Granulocytes % 1.100 H Neutrophils % 75.3 Lymphocytes % 11.8 L Monocytes % 6.0 Eosinophils % 5.4 Basophils % 0.4 Nucleated Red Blood Cells % 0.0 Immature Granulocytes # 0.150 H Neutrophils # 10.4 H Lymphocytes # 1.6 Monocytes # 0.8 Eosinophils # 0.7 H Basophils # 0.1 Nucleated Red Blood Cells # 0.0 Vancomycin Level Trough 21.3 *H Medications Medication Current Medications IV Flush (NS 3 ml) 3 ml PER PROTOCOL IV ; Start 08/01/18 at 19:30 Ondansetron HCl (Zofran Inj) 4 mg Q6H PRN IV NAUSEA/VOMITING Last administered on 08/06/18 13:22; Admin Dose 4 MG; Start 08/01/18 at 19:30 Acetaminophen (Tylenol Tab) 650 mg Q6H PRN PO .PAIN 1-3 OR TEMP Last administered on 08/07/18 03:22; Admin Dose 650 MG; Start 08/01/18 at 19:30 Acetaminophen/ Hydrocodone Bitart ([place] (5/325)) 1 tab Q6H PRN PO .MOD PAIN 4- 6 Last administered on 08/09/18 05:45; Admin Dose 1 TAB; Start 08/01/18 at 19:30 Pantoprazole (Protonix Iv) 40 mg DAILY@06 IV Last administered on 08/09/18 05:29; Admin Dose 40 MG; Start 08/02/18 at 06:00 Dextrose/Sodium Chloride 1,000 ml @ 75 mls/hr [id number] IV Last administered on 08/08/18 05:49; Admin Dose 75 MLS/HR; Start 08/02/18 at 16:00 Meropenem/Sodium Chloride 50 ml @ 100 mls/hr Q12 IVPB Last administered on 08/09/18 08:49; Admin Dose 100 MLS/HR; Start 08/03/18 at 16:00 Nystatin (Nystatin Susp) 5 ml QID PO Last administered on 08/09/18 14:48; Admin Dose 5 ML; Start 08/03/18 at 17:00 Docusate Sodium (Colace) 100 mg BID PO Last administered on 08/09/18 08:49; Admin Dose 100 MG; Start 08/05/18 at 10:30 Vancomycin HCl (Vanco Iv Per Pharmacy) VANCOMYCIN PER PHARMACY PER PROTOCOL XX ; Start 08/05/18 at 11:30 Fluconazole/ Sodium Chloride 50 ml @ 50 mls/hr Q24H IVPB Last administered on 08/09/18 14:47; Admin Dose 50 MLS/HR; Start 08/05/18 at 13:00 Magnesium Hydroxide (Milk Of Mag) 30 ml BID PRN PO CONSTIPATION; Start 08/07/18 at 06:30 Vancomycin HCl 1.25 gm/Sodium Chloride 250 ml @ 83.333 mls/ hr Q12H IVPB ; Start 08/09/18 at 22:00 JOHN VELOZ MD Aug 09, 2018 17:50
[2018-08-09 20:00] VITALS: BP 113/71; PULSE 78; RESP 18
[2018-08-10 02:00] VITALS: BP 119/73; PULSE 69; RESP 18
[2018-08-10] MEDS: PANTOPRAZOLE 40 MG INJ IV SCH (06:16)
[2018-08-10 08:00] VITALS: BP 122/66; PULSE 84; RESP 18
[2018-08-10] MEDS: NYSTATIN SUSP 5 ML CUP PO SCH ×4 (08:48→22:04)
[2018-08-10] MEDS: MEROPENEM 1 GM/50ML(PMX) 50 ML IVPB SCH ×2 (08:48→22:04)
[2018-08-10] MEDS: DOCUSATE SODIUM 100 MG CAP PO SCH ×2 (08:48→22:04)
[2018-08-10] MEDS: VANCOMYCIN HCL 1.25 GM in SOD CHLORIDE 0.9% 250 ML IVPB SCH ×2 (11:02→22:45)
[2018-08-10] MEDS: DEXTROSE 5%-0.45% NACL 1,000 ML IV SCH (11:04)
--- NOTE | 2018-08-10 13:20 | CONS ---
Assessment/Plan Assessment/Plan Hospital Course (Demo Recall) No acute changes overnight patient is afebrile in no distress Microbiology: Fluid cultures growing preliminary staph aureus Antimicrobials: Vanco, fluconazole, meropenem Allergy: Penicillin Physical examination: Well-developed middle-aged woman in no distress. Head atraumatic normocephalic neck is supple chest rise symmetrical, breath sounds diminished bases. Heart: S1-S2. Abdomen soft guarded on palpation bowel sounds present. Extremities without cyanosis. Assessment: 1. Sepsis, present on admission secondary to #2 2. Gallbladder/hepatic abscesses, status post cholecystostomy tube placement 3. Oral candidiasis 4. UTI per urinalysis Plan: Patient remained stable, continue antibiotics, follow final cultures of the fluid, repeat CT of the abdomen 08/06/18/revealed persistent pericholecystic and intrahepatic fluid collections or abscesses that were unchanged in size. Patient will require IV antibiotics for at least 2 more weeks with repeat CT of the abdomen at the end of second week to evaluate if abscesses resolved. Consultation Date/Type/Reason Admit Date/Time Aug 01, 2018 at 17:50 Initial Consult Date 08/03/18 Type of Consult id Requesting Provider: KEAGAN ELENA Date/Time of Note DATE: 08/10/18 TIME: 13:19 Exam/Review of Systems Exam Vitals Vital Signs Date Temp Pulse Resp B/P (MAP) Pulse Ox O2 O2 Flow FiO2 Time Delivery Rate 08/10/18 98.6 84 18 122/66 96 08:00 (84) 08/08/18 Room Air 08:17 Intake and Output 08/09/18 08/09/18 08/10/18 1515:00 23:00 07:00 IntakeIntake Total 780 ml 340 ml 1390 ml BalanceBalance 780 ml 340 ml 1390 ml Results Result Diagram: 08/10/18 0641 08/10/18 0641 Results 24hrs Laboratory Tests Test 08/10/18 06:41 White Blood Count 13.3 H Red Blood Count 3.78 L Hemoglobin 10.0 L Hematocrit 32.5 L Mean Corpuscular Volume 86.0 Mean Corpuscular Hemoglobin 26.5 L Mean Corpuscular Hemoglobin Concent 30.8 L Red Cell Distribution Width 14.2 Platelet Count 779 H Mean Platelet Volume 8.8 Immature Granulocytes % 1.600 H Neutrophils % Segmented Neutrophils % (Manual) 73 Band Neutrophils % (Manual) 6 H Lymphocytes % Lymphocytes % (Manual) 8 L Monocytes % Monocytes % (Manual) 5 Eosinophils % Eosinophils % (Manual) 4 Basophils % Metamyelocytes % (manual) 3 H Myelocytes % (Manual) 1 H Nucleated Red Blood Cells % 0.0 Immature Granulocytes # 0.210 H Neutrophils # Neutrophils # (Manual) 9.8 H Band Neutrophils # 0.7 H Lymphocytes (Manual) 1.0 Lymphocytes # Monocytes # Monocytes # (Manual) 0.6 Eosinophils # Basophils # Metamyelocytes # 0.3 H Myelocytes # 0.1 H Nucleated Red Blood Cells # Platelet Estimate INCREASED Giant Platelets 2 H Polychromasia 3+ Anisocytosis 1+ Microcytosis 1+ Sodium Level 141 Potassium Level 3.7 Chloride Level 103 Carbon Dioxide Level 30 Anion Gap 8 Blood Urea Nitrogen 8 Creatinine 0.55 Est Glomerular Filtrat Rate mL/min > 60 Glucose Level 125 Calcium Level 8.7 Medications Medication Current Medications IV Flush (NS 3 ml) 3 ml PER PROTOCOL IV ; Start 08/01/18 at 19:30 Ondansetron HCl (Zofran Inj) 4 mg Q6H PRN IV NAUSEA/VOMITING Last administered on 08/06/18 13:22; Admin Dose 4 MG; Start 08/01/18 at 19:30 Acetaminophen (Tylenol Tab) 650 mg Q6H PRN PO .PAIN 1-3 OR TEMP Last administered on 08/07/18 03:22; Admin Dose 650 MG; Start 08/01/18 at 19:30 Acetaminophen/ Hydrocodone Bitart ([place] (5/325)) 1 tab Q6H PRN PO .MOD PAIN 4- 6 Last administered on 08/09/18 21:19; Admin Dose 1 TAB; Start 08/01/18 at 19:30 Pantoprazole (Protonix Iv) 40 mg DAILY@06 IV Last administered on 08/10/18 06:16; Admin Dose 40 MG; Start 08/02/18 at 06:00 Dextrose/Sodium Chloride 1,000 ml @ 75 mls/hr [id number] IV Last administered on 08/10/18 11:04; Admin Dose 75 MLS/HR; Start 08/02/18 at 16:00 Meropenem/Sodium Chloride 50 ml @ 100 mls/hr Q12 IVPB Last administered on 08/10/18 08:48; Admin Dose 100 MLS/HR; Start 08/03/18 at 16:00 Nystatin (Nystatin Susp) 5 ml QID PO Last administered on 08/10/18 08:48; Admin Dose 5 ML; Start 08/03/18 at 17:00 Docusate Sodium (Colace) 100 mg BID PO Last administered on 08/10/18 08:48; Admin Dose 100 MG; Start 08/05/18 at 10:30 Vancomycin HCl (Vanco Iv Per Pharmacy) VANCOMYCIN PER PHARMACY PER PROTOCOL XX ; Start 08/05/18 at 11:30 Fluconazole/ Sodium Chloride 50 ml @ 50 mls/hr Q24H IVPB Last administered on 08/09/18 14:47; Admin Dose 50 MLS/HR; Start 08/05/18 at 13:00 Magnesium Hydroxide (Milk Of Mag) 30 ml BID PRN PO CONSTIPATION; Start 08/07/18 at 06:30 Vancomycin HCl 1.25 gm/Sodium Chloride 250 ml @ 83.333 mls/ hr Q12H IVPB Last administered on 08/10/18 11:02; Admin Dose 83.333 MLS/HR; Start 08/09/18 at 22:00 RICKEY QUINTANA NP Aug 10, 2018 13:20
--- NOTE | 2018-08-10 13:27 | PN ---
Date/Time of Note Date/Time of Note DATE: 08/10/18 TIME: 13:25 Assessment/Plan VTE Prophylaxis Risk score (from Nsg)>0 risk: 1 SCD applied (from Ns): Yes Pharmacological prophylaxis: NA/contraindicated Pharm contraindication: low risk/ambulating Lines/Catheters IV Catheter Type (from Nrsg): Peripheral IV Urinary Cath still in place: No Assessment/Plan Assessment/Plan 38 yo woman with sepsis from hepatic abscesses. #Sepsis-improving now, suspect source is pericholecystic fluid/abscess. - Now status post CT-guided hepatic drainage placement by IR on 08/05 days ago - Per Dr. Hoover, no surgery including cholecystectomy in house. He will follow outpatient. - Unfortunately hepatic abscesses have not decreased in size over the past week with medical therapy alone. - Will plan for 2-4 weeks [facility] antibiotics. #Pericholecystic fluid with small hepatic abscesses-and status post drainage placement, again presently on antibiotics, surgery team on the case as well as ID - Plan for 2-4 week antibiotics. - Culture growing Staph, pending sensitivities. #Chest pain - CT coronary angiogram with clean coronaries; calcium score 0. #Headache-head CT negative for any acute findings DVT: SCDs GI: None Result Diagram: 08/10/18 0641 08/10/18 0641 Subjective 24 Hr Interval Summary Free Text/Dictation Patient doing well, sleeping comfortably. She reports pain is adequately controlled. No acute complaints. Exam/Review of Systems Exam Vitals Vital Signs Date Temp Pulse Resp B/P (MAP) Pulse Ox O2 O2 Flow FiO2 Time Delivery Rate 08/10/18 98.6 84 18 122/66 96 08:00 (84) 08/08/18 Room Air 08:17 Intake and Output 08/09/18 08/09/18 08/10/18 1515:00 23:00 07:00 IntakeIntake Total 780 ml 340 ml 1390 ml BalanceBalance 780 ml 340 ml 1390 ml Exam Gen: Overweight woman sitting in chair, no acute distress. Eyes: PERRL, no icterus HEENT: Clear oropharynx, moist mucous membranes Neck: No lymphadenopathy Card: Regular rate and rhythm, no murmurs Pulm: Clear to auscultation bilaterally Abd: RUQ drainage tube in place, no guarding, no hepatosplenomegaly. Ext: No cyanosis/clubbing/edema Results Results 24hrs Laboratory Tests Test 08/10/18 06:41 White Blood Count 13.3 H Red Blood Count 3.78 L Hemoglobin 10.0 L Hematocrit 32.5 L Mean Corpuscular Volume 86.0 Mean Corpuscular Hemoglobin 26.5 L Mean Corpuscular Hemoglobin Concent 30.8 L Red Cell Distribution Width 14.2 Platelet Count 779 H Mean Platelet Volume 8.8 Immature Granulocytes % 1.600 H Neutrophils % Segmented Neutrophils % (Manual) 73 Band Neutrophils % (Manual) 6 H Lymphocytes % Lymphocytes % (Manual) 8 L Monocytes % Monocytes % (Manual) 5 Eosinophils % Eosinophils % (Manual) 4 Basophils % Metamyelocytes % (manual) 3 H Myelocytes % (Manual) 1 H Nucleated Red Blood Cells % 0.0 Immature Granulocytes # 0.210 H Neutrophils # Neutrophils # (Manual) 9.8 H Band Neutrophils # 0.7 H Lymphocytes (Manual) 1.0 Lymphocytes # Monocytes # Monocytes # (Manual) 0.6 Eosinophils # Basophils # Metamyelocytes # 0.3 H Myelocytes # 0.1 H Nucleated Red Blood Cells # Platelet Estimate INCREASED Giant Platelets 2 H Polychromasia 3+ Anisocytosis 1+ Microcytosis 1+ Sodium Level 141 Potassium Level 3.7 Chloride Level 103 Carbon Dioxide Level 30 Anion Gap 8 Blood Urea Nitrogen 8 Creatinine 0.55 Est Glomerular Filtrat Rate mL/min > 60 Glucose Level 125 Calcium Level 8.7 Medications Medication Current Medications IV Flush (NS 3 ml) 3 ml PER PROTOCOL IV ; Start 08/01/18 at 19:30 Ondansetron HCl (Zofran Inj) 4 mg Q6H PRN IV NAUSEA/VOMITING Last administered on 08/06/18at 13:22; Admin Dose 4 MG; Start 08/01/18 at 19:30 Acetaminophen (Tylenol Tab) 650 mg Q6H PRN PO .PAIN 1-3 OR TEMP Last administered on 08/07/18at 03:22; Admin Dose 650 MG; Start 08/01/18 at 19:30 Acetaminophen/ Hydrocodone Bitart ([place] (5/325)) 1 tab Q6H PRN PO .MOD PAIN 4- 6 Last administered on 08/09/18at 21:19; Admin Dose 1 TAB; Start 08/01/18 at 19:30 Pantoprazole (Protonix Iv) 40 mg DAILY@06 IV Last administered on 08/10/18 06:16; Admin Dose 40 MG; Start 08/02/18 at 06:00 Dextrose/Sodium Chloride 1,000 ml @ 75 mls/hr [id number] IV Last administered on 08/10/18 11:04; Admin Dose 75 MLS/HR; Start 08/02/18 at 16:00 Meropenem/Sodium Chloride 50 ml @ 100 mls/hr Q12 IVPB Last administered on 08/10/18 08:48; Admin Dose 100 MLS/HR; Start 08/03/18 at 16:00 Nystatin (Nystatin Susp) 5 ml QID PO Last administered on 08/10/18 08:48; Admin Dose 5 ML; Start 08/03/18 at 17:00 Docusate Sodium (Colace) 100 mg BID PO Last administered on 08/10/18 08:48; Admin Dose 100 MG; Start 08/05/18 at 10:30 Vancomycin HCl (Vanco Iv Per Pharmacy) VANCOMYCIN PER PHARMACY PER PROTOCOL XX ; Start 08/05/18 at 11:30 Fluconazole/ Sodium Chloride 50 ml @ 50 mls/hr Q24H IVPB Last administered on 08/09/18 14:47; Admin Dose 50 MLS/HR; Start 08/05/18 at 13:00 Magnesium Hydroxide (Milk Of Mag) 30 ml BID PRN PO CONSTIPATION; Start 08/07/18 at 06:30 Vancomycin HCl 1.25 gm/Sodium Chloride 250 ml @ 83.333 mls/ hr Q12H IVPB Last administered on 08/10/18 11:02; Admin Dose 83.333 MLS/HR; Start 08/09/18 at 22:00 JOHN VELOZ MD Aug 10, 2018 13:27
[2018-08-10 14:00] VITALS: BP 130/76; PULSE 84; RESP 20
[2018-08-10] MEDS: FLUCONAZOLE 100 MG/50 ML (PMX) 50 ML IVPB SCH (15:07)
[2018-08-10 20:20] VITALS: BP 117/55; PULSE 70; RESP 16
[2018-08-11 02:57] VITALS: BP 118/70; PULSE 72; RESP 16
[2018-08-11] MEDS: PANTOPRAZOLE 40 MG INJ IV SCH (05:24)
[2018-08-11 08:00] VITALS: BP 113/66; PULSE 64; RESP 20
[2018-08-11] MEDS: NYSTATIN SUSP 5 ML CUP PO SCH ×2 (08:17→12:24)
[2018-08-11] MEDS: DOCUSATE SODIUM 100 MG CAP PO SCH (08:17)
[2018-08-11] MEDS: MEROPENEM 1 GM/50ML(PMX) 50 ML IVPB SCH (08:17)
[2018-08-11] MEDS: DEXTROSE 5%-0.45% NACL 1,000 ML IV SCH ×2 (08:26)
[2018-08-11] MEDS: VANCOMYCIN HCL 1.25 GM in SOD CHLORIDE 0.9% 250 ML IVPB SCH (09:34)
--- NOTE | 2018-08-11 11:06 | CONS ---
Assessment/Plan Assessment/Plan Hospital Course (Demo Recall) No acute changes overnight patient is afebrile in no distress Microbiology: Fluid cultures growing COLT Antimicrobials: Vanco, fluconazole, meropenem Allergy: Penicillin Physical examination: Well-developed middle-aged woman in no distress. Head atraumatic normocephalic neck is supple chest rise symmetrical, breath sounds diminished bases. Heart: S1-S2. Abdomen soft guarded on palpation bowel sounds present. Extremities without cyanosis. Assessment: 1. Sepsis, present on admission secondary to #2 2. Gallbladder/hepatic abscesses, status post cholecystostomy tube placement 3. Oral candidiasis 4. UTI per urinalysis Plan: Remained unchanged with ongoing leukocytosis, repeat CT of the abdomen 08/06/18/revealed persistent pericholecystic and intrahepatic fluid collections or abscesses that were unchanged in size. Fluid culture growing oxacillin sensitive staph aureus, I am not convinced that this is the only organism as the cultures were sent 4 days after drain was placed and while patient was on antibiotics. Recommend repeat CT of the abdomen and pelvis with IV contrast to evaluate response to treatment, continue on current antibiotics Consultation Date/Type/Reason Admit Date/Time Aug 01, 2018 at 17:50 Initial Consult Date 08/03/18 Type of Consult id Requesting Provider: KEAGAN ELENA Date/Time of Note DATE: 08/11/18 TIME: 11:00 Exam/Review of Systems Exam Vitals Vital Signs Date Temp Pulse Resp B/P (MAP) Pulse Ox O2 O2 Flow FiO2 Time Delivery Rate 08/11/18 98.6 64 20 113/66 96 08:00 (82) 08/08/18 Room Air 08:17 Intake and Output 08/10/18 08/10/18 08/11/18 1515:00 23:00 07:00 IntakeIntake Total 800 ml 1150 ml 650 ml BalanceBalance 800 ml 1150 ml 650 ml Results Result Diagram: 08/11/18 0603 08/11/18 0604 Results 24hrs Laboratory Tests Test 08/11/18 06:03 08/11/18 06:04 White Blood Count 14.5 H Red Blood Count 3.84 L Hemoglobin 10.2 L Hematocrit 32.7 L Mean Corpuscular Volume 85.2 Mean Corpuscular Hemoglobin 26.6 L Mean Corpuscular Hemoglobin Concent 31.2 L Red Cell Distribution Width 14.3 Platelet Count 891 H Mean Platelet Volume 8.7 Immature Granulocytes % 1.400 H Neutrophils % 76.8 Lymphocytes % 10.8 L Monocytes % 5.9 Eosinophils % 4.6 Basophils % 0.5 Nucleated Red Blood Cells % 0.0 Immature Granulocytes # 0.200 H Neutrophils # 11.1 H Lymphocytes # 1.6 Monocytes # 0.9 Eosinophils # 0.7 H Basophils # 0.1 Nucleated Red Blood Cells # 0.0 Sodium Level 141 Potassium Level 4.1 Chloride Level 104 Carbon Dioxide Level 29 Anion Gap 8 Blood Urea Nitrogen 7 Creatinine 0.58 Est Glomerular Filtrat Rate mL/min > 60 Glucose Level 103 Calcium Level 8.9 Medications Medication Current Medications IV Flush (NS 3 ml) 3 ml PER PROTOCOL IV ; Start 08/01/18 at 19:30 Ondansetron HCl (Zofran Inj) 4 mg Q6H PRN IV NAUSEA/VOMITING Last administered on 08/06/18 13:22; Admin Dose 4 MG; Start 08/01/18 at 19:30 Acetaminophen (Tylenol Tab) 650 mg Q6H PRN PO .PAIN 1-3 OR TEMP Last administered on 08/07/18 03:22; Admin Dose 650 MG; Start 08/01/18 at 19:30 Acetaminophen/ Hydrocodone Bitart ([place] (5/325)) 1 tab Q6H PRN PO .MOD PAIN 4- 6 Last administered on 08/09/18 21:19; Admin Dose 1 TAB; Start 08/01/18 at 19:30 Pantoprazole (Protonix Iv) 40 mg DAILY@06 IV Last administered on 08/11/18 05:24; Admin Dose 40 MG; Start 08/02/18 at 06:00 Dextrose/Sodium Chloride 1,000 ml @ 75 mls/hr [id number] IV Last administered on 08/11/18 08:26; Admin Dose 75 MLS/HR; Start 08/02/18 at 16:00 Meropenem/Sodium Chloride 50 ml @ 100 mls/hr Q12 IVPB Last administered on 08/11/18 08:17; Admin Dose 100 MLS/HR; Start 08/03/18 at 16:00 Nystatin (Nystatin Susp) 5 ml QID PO Last administered on 08/11/18 08:17; Admin Dose 5 ML; Start 08/03/18 at 17:00 Docusate Sodium (Colace) 100 mg BID PO Last administered on 08/11/18at 08:17; Admin Dose 100 MG; Start 08/05/18 at 10:30 Vancomycin HCl (Vanco Iv Per Pharmacy) VANCOMYCIN PER PHARMACY PER PROTOCOL XX ; Start 08/05/18 at 11:30 Fluconazole/ Sodium Chloride 50 ml @ 50 mls/hr Q24H IVPB Last administered on 08/10/18at 15:07; Admin Dose 50 MLS/HR; Start 08/05/18 at 13:00 Magnesium Hydroxide (Milk Of Mag) 30 ml BID PRN PO CONSTIPATION; Start 08/07/18 at 06:30 Vancomycin HCl 1.25 gm/Sodium Chloride 250 ml @ 83.333 mls/ hr Q12H IVPB Last administered on 08/11/18at 09:34; Admin Dose 83.333 MLS/HR; Start 08/09/18 at 22:00 RICKEY QUINTANA NP Aug 11, 2018 11:06
[2018-08-11] MEDS: FLUCONAZOLE 100 MG/50 ML (PMX) 50 ML IVPB SCH (12:49)
[2018-08-11 14:00] VITALS: BP 120/64; PULSE 72; RESP 18
[2018-08-11] MEDS ORDERED: METR-122 PO (14:09)
--- NOTE | 2018-08-11 14:34 | PDOCDIS ---
Discharge Instructions DIAGNOSIS Discharge Diagnosis Hepatic abscess CONDITION [id number] Patient Condition: [id number] Good HOME CARE INSTRUCTIONS: [id number] Diet Instructions: [id number] Regular ACTIVITY: [id number] Activity Restrictions: [id number] No Restrictions FOLLOW UP/APPOINTMENTS Follow-up Plan 1. Keep your cholecystostomy tube clean and dry. 2. Flush it with sterile water every three days. 3. Take antibiotics as prescribed. You should finish a 4 week course. 4. Make an appointment with Dr. Hoover in 1-2 weeks. His clinic is at [address] [place] [address] [place] [id number], can call [phone] 1. 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 2. Enjuague con agua estril cada edith reid. 3. [place] antibiticos segn lo prescrito. Deberas terminar un curso de 4 semanas. 4. Honorio arnold fang con el Dr. Hoover en 1-2 semanas. [facility] est en [address] [place] [address] [place] [address], puede llamar al [phone] JOHN VELOZ MD Aug 11, 2018 14:20
--- NOTE | 2018-08-11 17:49 | DS ---
Date/Time of Note Date/Time of Note DATE: 08/11/18 TIME: 17:46 Discharge Summary Admission/Discharge Info Admit Date/Time Aug 01, 2018 at 17:50 Discharge Date/Time Aug 11, 2018 at 16:10 Discharge Diagnosis Hepatic abscess Patient Condition: Good Consults Infectious disease, Dr. Traylor General surgery, Dr. Hoover Cardiology, Dr. Weiss Procedures CT guided cholecystostomy drain 08/05/18 Hx of Present Illness Ms. Acosta is an unfortunate 38 yo woman with no major PMH who presents with abdominal pain and fever. She was recently hospitalized at [facility] 05/26-06/03 for acute cholecystitis; but she also had chest pain and was found to have inferior ischemia on cardiac stress test. She got a percutaneous cholecystostomy tube with plan for outpatient cardiac cath. After discharge, she had the ashleigh cystostomy drain removed Jun 09. She reports she continued to have intermittent aching RUQ pain as well as occasional pressure-like chest pain. 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 About three days ago she developed a severe diffuse headache which has intermittently recurred over the past few days. Last night she had high subjective fever at home, so returned to the ED. She continues to have pressure- like chest pain at rest as well as RUQ aching pain. In the ED she was febrile to 102.8, tachy to 109, BP 138/78, R 18. CT showed a large fluid-filled collection around the gallbladder as well as small hepatic abscesses. Hospital Course The patient was admitted and Dr. Hoover was consulted. Initially the plan was to transfer to higher level of care for hepatobiliary surgery evaluation, but then we decided to proceed with IR-guided cholecystostomy drain. Culture from the drain grew MSSA. Initially she was on broad spectrum IV antibiotics but will narrow to PO antibiotics. She was offered a course of vancomycin via PICC; but the patient declined and preferred a PO course. Cardiology was consulted and we did a CT coronary angiogram which showed clean coronaries with calcium score 0. She is medically optimized to proceed with lap vs open cholecystectomy which can be done outpatient. No further cardiac workup needed. Home Meds Active Scripts Metronidazole* (Metronidazole*) 500 Mg Tablet, 500 MG PO Q8, #84 TAB Prov:JOHN VELOZ MD 08/11/18 Levofloxacin* (Levaquin*) 750 Mg Tablet, 750 MG PO DAILY for 7 Days, #7 TAB Prov:DALLAS BURNHAM DIPLOMATIC COURIER 06/03/18 Aspirin Delayed Release (Aspirin Delayed Release) 81 Mg Tablet.dr, 81 MG PO DAILY, #30 Prov:DALLAS BURNHAM DIPLOMATIC COURIER 06/03/18 Follow-up Plan 1. Keep your cholecystostomy tube clean and dry. 2. Flush it with sterile water every three days. 3. Take antibiotics as prescribed. You should finish a 4 week course. 4. Make an appointment with Dr. Hoover in 1-2 weeks. His clinic is at [address] [place] [address] [place] [address], can call [phone] 1. 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 2. Enjuague con agua estril cada edith reid. 3. [place] antibiticos segn lo prescrito. Deberas terminar un curso de 4 semanas. 4. Honorio arnold fang con el Dr. Hoover en 1-2 semanas. [facility] est en [address] [place] [address] [address] [place] [address], puede llamar al [phone] Primary Care Provider Care Physician No Primary Time spent on discharge: > 30 minutes Pending Labs Laboratory Tests Test 08/11/18 06:03 08/11/18 06:04 White Blood Count 14.5 10^3/ul (4.8-10.8) Red Blood Count 3.84 10^6/ul (4.20-5.40) Hemoglobin 10.2 g/dl (12.0-16.0) Hematocrit 32.7 % (37.0-47.0) Mean Corpuscular Volume 85.2 fl (82.0-101.0) Mean Corpuscular Hemoglobin 26.6 pg (29.0-33.0) Mean Corpuscular 31.2 g/dl (32.0-37.0) Hemoglobin Concent Red Cell Distribution Width 14.3 % (11.5-14.5) Platelet Count 891 10^3/UL (140-415) Mean Platelet Volume 8.7 fl (7.4-10.4) Immature Granulocytes % 1.400 % (0.001-0.429) Neutrophils % 76.8 % (39.0-77.0) Lymphocytes % 10.8 % (15.0-51.0) Monocytes % 5.9 % (0.0-11.0) Eosinophils % 4.6 % (0.0-7.0) Basophils % 0.5 % (0.0-2.0) Nucleated Red Blood Cells % 0.0 /100WBC (0.0-0.0) Immature Granulocytes # 0.200 10^3/ul (0.0-0.031) Neutrophils # 11.1 10^3/ul (1.6-7.5) Lymphocytes # 1.6 10^3/ul (0.8-2.9) Monocytes # 0.9 10^3/ul (0.3-0.9) Eosinophils # 0.7 10^3/ul (0.0-0.5) Basophils # 0.1 10^3/ul (0.0-0.1) Nucleated Red Blood Cells # 0.0 10^3/ul (0.0-0.0) Sodium Level 141 mmol/L (135-144) Potassium Level 4.1 mmol/L (3.5-5.1) Chloride Level 104 mmol/L (97-110) Carbon Dioxide Level 29 mmol/L (21-31) Anion Gap 8 (5-13) Blood Urea Nitrogen 7 mg/dl (7-20) Creatinine 0.58 mg/dl (0.44-1.00) Est Glomerular Filtrat > 60 mL/min (>60) Rate mL/min Glucose Level 103 mg/dl (70-220) Calcium Level 8.9 mg/dl (8.4-10.2) JOHN VELOZ MD Aug 11, 2018 17:49
== END 2018-08-11 16:10 | disposition home health service (06) | DRG 871 ==
LOC: FTE 10:55 → PP2 17:50
PROVIDERS: ADMIT Internal Medicine; ATTEND Internal Medicine
PROC: 0F9430Z Drainage of Gallbladder with Drainage Device, Percutaneous Approach (ICD-10-PCS; principal; 2018-08-04)
DX: A41.9 Sepsis, unspecified organism (principal); K75.0 Abscess of liver; K81.0 Acute cholecystitis; B37.0 Candidal stomatitis; N39.0 Urinary tract infection, site not specified; R07.9 Chest pain, unspecified; I25.10 Atherosclerotic heart disease of native coronary artery without angina pectoris; R51 Headache; L30.9 Dermatitis, unspecified; D50.9 Iron deficiency anemia, unspecified; Z79.82 Long term (current) use of aspirin; Z88.0 Allergy status to penicillin
CPT/HCPCS: 70450; 71045; 74177; 75571; 75574; 75989; 76705; 80048; 80053; 80061; 80202; 81001; 81025; 83036; 83735; 84100; 84443; 84484; 85025; 85610; 85730; 87040; 87070; 87075; 87086; 87102; 87400; 93005; C1729; C9113; J1450; J1956; J2185; J2250; J2405; J3010; J3370; J3480; J7040; J7042; J7050; Q9967

== ENCOUNTER 2018-08-27 07:49 | Emergency (ER) | payer MEDICAID ==
[~2018-08-27] VITALS: Ht 162.6 cm; Wt 75.0 kg
[~2018-08-27 07:49] MED LIST changes: +METR-122 PO
[2018-08-27 07:52] VITALS: Ht 162.6 cm; Wt 75.0 kg
[2018-08-27] MEDS ORDERED: ONDANSETRON 4 MG INJ IV STA (08:43)
[2018-08-27] MEDS ORDERED: SOD CHLORIDE 0.9% 1,000 ML IV STA (08:43)
[2018-08-27] MEDS ORDERED: KETOROLAC 30 MG INJ IV STA (08:43)
[2018-08-27] MEDS ORDERED: DICY10CA40 PO (10:10)
[2018-08-27] MEDS ORDERED: HYDR-4011 PO (10:10)
[2018-08-27] MEDS ORDERED: CIPR500T4 PO (10:10)
--- NOTE | 2018-08-27 10:22 | ERD ---
ER Documentation Chief Complaint Chief Complaint pt is bib self , "thinks her cath is infected" sched to remove on Thursday HPI 38-year-old female presenting with potential catheter infection. In May 2018 patient had abscess around a infected gallbladder and she had a drain placed. Drain was removed shortly after. Patient presented to the emergency room July 2018 with similar problems and an abscess was noted again around an infected gallbladder. Drain was placed and patient is scheduled in 5 days to have drain removed. Gallbladder will be removed shortly after. Patient developed pain around the gallbladder site with pulsing at the catheter site 2 days ago. She is unsure if there is a very infected area. Denies fever. Denies vomiting. Denies chest pain or shortness of breath. Denies other medical problems. NKDA. Social history denies ROS All systems reviewed and are negative except as per history of present illness. Medications Home Meds Active Scripts Ciprofloxacin Hcl* (Ciprofloxacin Hcl*) 500 Mg Tablet, 500 MG PO BID for 7 Days, TAB Prov:AISLINN MONAE PA-C 08/27/18 Dicyclomine HCl (Dicyclomine HCl) 10 Mg Capsule, 10 MG PO TID PRN for ABDOMINAL CRAMPING, #20 CAP Prov:AISLINN MONAE PA-C 08/27/18 Hydrocodone/Acetaminophen ([place] 5-325 Tablet) 1 Each Tablet, 1 TAB PO Q6H PRN for PAIN, #7 TAB Prov:AISLINN MONAE PA-C 08/27/18 Metronidazole* (Metronidazole*) 500 Mg Tablet, 500 MG PO Q8, #84 TAB Prov:JOHN VELOZ MD 08/11/18 Levofloxacin* (Levaquin*) 750 Mg Tablet, 750 MG PO DAILY for 7 Days, #7 TAB Prov:DALLAS BURNHAM NP 06/03/18 Aspirin Delayed Release (Aspirin Delayed Release) 81 Mg Tablet.dr, 81 MG PO DAILY, #30 Prov:DALLAS BURNHAM NP 06/03/18 Allergies Allergies: Coded Allergies: shrimp (Verified Allergy, Intermediate, eczema, 05/27/18) and seafood soap (Verified Allergy, Intermediate, eczema, 05/27/18) toxic cleaning materials Penicillins (Verified Allergy, Unknown, 05/26/18) PMhx/Soc History of Surgery: No Anesthesia Reaction: No Hx Neurological Disorder: No Hx Respiratory Disorders: No Hx Cardiac Disorders: No Hx Psychiatric Problems: No Hx Miscellaneous Medical Probl: No Hx Alcohol Use: No Hx Substance Use: No Hx Tobacco Use: No Smoking Status: Never smoker FmHx Family History: No diabetes, No coronary disease, No other Physical Exam Vitals Vital Signs Date Temp Pulse Resp B/P (MAP) Pulse Ox O2 O2 Flow FiO2 Time Delivery Rate 08/27/18 98.9 69 16 131/71 99 07:52 (91) Physical Exam GENERAL: The patient is well-appearing, well-nourished, in no acute distress HEENT: Atraumatic. Conjunctivae are pink. Pupils equal, round, and reactive to light. There is no scleral icterus. Tympanic membranes clear bilaterally. Oropharynx clear. NECK: C-spine is soft and supple. There is no meningismus. There is no cervical lymphadenopathy. CHEST: Clear to auscultation bilaterally. There are no rales, wheezes or rhonchi. HEART: Regular rate and rhythm. No murmurs, clicks, rubs or gallops. ABDOMEN: Mild tenderness palpation epigastric region with no rebound tenderness. No distention. No organomegaly Result Diagram: 08/27/18 0900 08/27/18 0900 Results 24 hrs Laboratory Tests Test 08/27/18 07:25 08/27/18 09:00 08/27/18 09:05 Urine Color RED Urine Clarity CLOUDY Urine pH 5.0 Urine Specific Benjamin 1.013 Urine Ketones NEGATIVE mg/dL Urine Nitrite NEGATIVE mg/dL Urine Bilirubin NEGATIVE mg/dL Urine Urobilinogen NEGATIVE mg/dL Urine Leukocyte Esterase 1+ [place]/ul Urine Microscopic RBC 29 /HPF Urine Microscopic WBC 10 /HPF Urine Squamous Epithelial Cells MODERATE /HPF Urine Bacteria FEW /HPF Urine Hemoglobin 3+ mg/dL Urine Glucose NEGATIVE mg/dL Urine Total Protein NEGATIVE mg/dl White Blood Count 7.5 10^3/ul Red Blood Count 4.79 10^6/ul Hemoglobin 12.6 g/dl Hematocrit 40.6 % Mean Corpuscular Volume 84.8 fl Mean Corpuscular Hemoglobin 26.3 pg Mean Corpuscular 31.0 g/dl Hemoglobin Concent Red Cell Distribution Width 14.6 % Platelet Count 431 10^3/UL Mean Platelet Volume 9.2 fl Immature Granulocytes % 0.400 % Neutrophils % 53.9 % Lymphocytes % 25.2 % Monocytes % 6.4 % Eosinophils % 13.0 % Basophils % 1.1 % Nucleated Red Blood Cells % 0.0 /100WBC Immature Granulocytes # 0.030 10^3/ul Neutrophils # 4.0 10^3/ul Lymphocytes # 1.9 10^3/ul Monocytes # 0.5 10^3/ul Eosinophils # 1.0 10^3/ul Basophils # 0.1 10^3/ul Nucleated Red Blood Cells # 0.0 10^3/ul Sodium Level 142 mmol/L Potassium Level 3.9 mmol/L Chloride Level 101 mmol/L Carbon Dioxide Level 28 mmol/L Anion Gap 13 Blood Urea Nitrogen 14 mg/dl Creatinine 0.55 mg/dl Est Glomerular Filtrat > 60 mL/min Rate mL/min Glucose Level 94 mg/dl Calcium Level 9.5 mg/dl Total Bilirubin 0.2 mg/dl Direct Bilirubin 0.00 mg/dl Indirect Bilirubin 0.2 mg/dl Aspartate Amino 43 IU/L Transf (AST/SGOT) Alanine 34 IU/L Aminotransferase (ALT/SGPT) Alkaline Phosphatase 115 IU/L Total Protein 8.5 g/dl Albumin 4.3 g/dl Globulin 4.20 g/dl Albumin/Globulin Ratio 1.02 Lipase 176 U/L POC Beta HCG, Qualitative NEGATIVE Current Medications Medications Dose Sig/Leydi Start Time Status Last (Trade) Ordered Route PRN Stop Time Admin Dose Reason Admin Sodium 1,000 ml @ Q1H STAT 08/27/18 DC 08/27/18 Chloride 1,000 mls/hr IV 08:43 09:01 08/27/18 09:42 Ondansetron 4 mg ONCE STAT 08/27/18 DC 08/27/18 HCl (Zofran IV 08:43 09:00 Inj) 08/27/18 08:44 Ketorolac 30 mg ONCE STAT 08/27/18 DC 08/27/18 Tromethamine IV 08:43 09:00 (Toradol) 08/27/18 08:44 Procedures/MDM DIAGNOSTIC IMAGING REPORT Patient: CHEYENNE CEBALLOS : 1980 Age: 38 Sex: F MR #: [id number] DOS: 08/27/18 0843 Ordering MD: JANNY MONAE PA-C Location: [facility] Room/Bed: PROCEDURE: Right upper quadrant ultrasound CLINICAL INDICATION: Abdominal pain TECHNIQUE: Multiple real-time images were acquired of the patient's abdomen and right retroperitoneum utilizing a high resolution transducer. COMPARISON: None FINDINGS: The liver is normal in echogenicity and measures 20.8 cm. No focal hepatic masses are seen. The gallbladder is physiologically distended. There is a calcified 2.5 cm stone and sludge within the gallbladder lumen. Per report the patient has a cholecystostomy tube which is not visualized. Evaluation the gallbladder wall is limited due to shadowing from the calcified stone. There is no obvious gallbladder wall thickening or pericholecystic fluid. Common bile duct is mildly dilated measures 7.5 mm. Pancreas and aorta are suboptimally seen. Survey views of the right kidney demonstrate no evidence of hydronephrosis or renal calculi. The right kidney measures 10.1 cm. IMPRESSION: 1. Cholelithiasis with large 2.5 cm calcified stone. This causes severe s hadowing which limits evaluation of the gallbladder wall. There is no obvious wall thickening or pericholecystic fluid on these limited images. 2. Per history the patient has a cholecystostomy tube. No tube is visualized on the current study. 3. Mild dilatation of the common bile duct measuring 7.5 mm. If there is clinical concern for choledocholithiasis recommend MRCP. 4. Mild hepatomegaly. 5. Pancreas not visualized ER Course: This case was discussed with Dr. Ybarra. Patient's blood work is within normal limits and ultrasound does not show signs of gallbladder wall thickening so patient will be treated with outpatient management and close follow-up to the surgeon's office. Patient is discharged strict ER precautions. MDM: 38-year-old female presenting with a draining and possible infection. Patient's ultrasound and blood work is within normal limits. Patient will be placed on oral antibiotics and pain medications. Patient is told if symptoms change or worsen to return to the ER. Patient is recommended to follow-up with surgeon as previously scheduled next week. All questions answered at this Departure Diagnosis: Primary Impression: Cholelithiasis Condition: Stable Patient Instructions: Gallstones Referrals: OSMAN YEH MD Additional Instructions: FOLLOW UP WITH YOUR PRIMARY CARE PHYSICIAN TOMORROW.Return to this facility if you are not improving as expected. AISLINN MONAE PA-C Aug 27, 2018 10:22
== END 2018-08-27 10:53 | disposition home or self-care (01) ==
LOC: FTE 07:49
DX: K80.20 Calculus of gallbladder without cholecystitis without obstruction (principal); Z79.82 Long term (current) use of aspirin
CPT/HCPCS: 76705; 80053; 81001; 81025; 83690; 85025; 96374; 96375; J1885; J2405; J7030; Z7502

== ENCOUNTER 2019-02-18 20:37 | Emergency (ER) | payer MEDICAID, OTHER ==
[~2019-02-18] VITALS: Ht 165.1 cm; Wt 83.0 kg
[~2019-02-18 20:37] MED LIST changes: -ASPI-1044 PO; +ASPI-1163 PO; +CIPR500T4 PO; +DICY10CA40 PO; +HYDR-4011 PO
[2019-02-18 21:24] VITALS: Ht 165.1 cm; Wt 83.0 kg
[2019-02-18] MEDS ORDERED: FAMOTIDINE 20 MG INJ IV STA (22:46)
[2019-02-18] MEDS ORDERED: DIPHENHYDRAMINE 50 MG INJ IV STA (22:46)
[2019-02-18] MEDS ORDERED: SOD CHLORIDE 0.9% 1,000 ML IV ONE (23:00)
[2019-02-18] MEDS ORDERED: DEXAMETHASONE 4 MG/ML 1 ML INJ IV ONE (23:00)
[2019-02-19 02:00] VITALS: BP 132/83; PULSE 70; RESP 18
== END 2019-02-19 02:00 | disposition home or self-care (01) ==
LOC: E/R 20:37
DX: L50.0 Allergic urticaria (principal)
CPT/HCPCS: 81025; 96374; 96375; J1100; J1200; J7030; Z7502; Z7610